=== PATIENT | female | born 1960 | race Caucasian/White ===

== ENCOUNTER 2017-06-21 20:55 | Inpatient (IN) | payer MEDICARE, MEDICAID ==
[~2017-06-21] VITALS: Ht 167.6 cm; Wt 154.6 kg
[2017-06-21 21:04] VITALS: BP 141/68; PULSE 92; RESP 20; TEMP 98.2; O2SAT 91
[2017-06-21] MEDS ORDERED: LEVO100T5 PO (21:08)
[2017-06-21] MEDS ORDERED: QUET1TAB11 PO (21:08)
[2017-06-21] MEDS ORDERED: BENZ0.5T PO (21:08)
[2017-06-21] MEDS ORDERED: SIMV20TA PO (21:08)
[2017-06-21] MEDS ORDERED: ALPR1TAB3 PO (21:08)
[2017-06-21] MEDS ORDERED: ROPI4TAB PO (21:08)
[2017-06-21] MEDS ORDERED: POTA-243 PO (21:08)
[2017-06-21] MEDS ORDERED: CITA20TA4 PO (21:08)
[2017-06-21] MEDS ORDERED: GLIM4TAB PO (21:08)
[2017-06-21] MEDS ORDERED: LITH450T PO (21:08)
[2017-06-21] MEDS ORDERED: OMEP20TA PO (21:08)
[2017-06-21] MEDS ORDERED: HYDR1CAP30 PO (21:08)
[2017-06-21] MEDS ORDERED: LISI-519 PO (21:08)
[2017-06-21] MEDS ORDERED: DOXE100C4 PO (21:08)
[2017-06-21] MEDS ORDERED: TRAZ1TAB45 PO (21:08)
[2017-06-21] MEDS ORDERED: SODIUM CHLORIDE 0.9% FLUSH 5 ML FLUSH IV FLUSH PRN (21:30)
--- NOTE | 2017-06-21 21:30 | PD ---
HPI Chief Complaint: GI Complaint Time Seen by Provider: 21:22 Travel History International Travel<30 days: No Contact w/Intl Traveler<30days: No Traveled to known affect area: No History of Present Illness HPI 56-year-old female presents to the emergency department by EMS transport from a local [facility] with complaint of vomiting 3 days generalized weakness and mild confusion. Patient was identified by EMS to have an Accu-Chek of 350. Patient has history of diabetes, hypertension, asthma/COPD , dyslipidemia, RBBB, morbid obesity, and anxiety depression and bipolar disorder. Patient here denies headache chest pain or abdominal pain. Patient denies diarrhea. Patient denies any injury or fall. Patient rates pain 0/10 in intensity. In route to the hospital patient had EKG which showed right bundle branch block pattern which patient has by history, was administered Zofran 4 mg IV for complaint of nausea and vomiting (no witnessed vomiting) , and given a 500 cc bolus of normal saline. Patient does not report any bilious emesis hematemesis coffee-ground emesis melena or hematochezia. Patient does not report complaint of shortness of breath. Patient denies any chest pain or pleuritic chest pain. No new lower extremity pain or swelling. PFSH Past Medical History Narrative Medical Asthma/status CT dyslipidemia diabetes hypertension hypothyroidism clinical obesity chronic pain syndrome no tobacco use occasional alcohol use; appendectomy cholecystectomy hysterectomy tonsillectomy; no tobacco use; nursing notes reviewed Asthma: Yes Anxiety: Yes Depression: Yes High Cholesterol: Yes COPD: Yes Diabetes: Yes Patient Takes Glucophage: No GERD: Yes Hypertension: Yes Respiratory: Yes Thyroid Disease: Yes Tetanus Vaccination: Unknown Influenza Vaccination: No ?: Unknown Past Surgical History Appendectomy: Yes Cholecystectomy: Yes Hysterectomy: Yes Tonsillectomy: Yes Social History Alcohol Use: Yes (Occasionally) Tobacco Use: No Substance Use: No Allergies-Medications (Allergen,Severity, Reaction): Coded Allergies: Penicillins (Verified Allergy, Unknown, Unknown , 06/21/17) Reported Meds & Prescriptions Reported Meds & Active Scripts Active Reported Alprazolam 1 Mg Tab 1 Mg PO Q8H PRN Omeprazole 20 Mg Tab 20 Mg PO DAILY Hydroxyzine Pamoate 25 Mg Cap 25 Mg PO BID Glimepiride 4 Mg Tab 4 Mg PO BIDAC [place] Carbonate ER ([place] Carbonate) 450 Mg Tab 450 Mg PO BID Benztropine (Benztropine Mesylate) 0.5 Mg Tab 1 Mg PO HS Klor-Con 10 (Potassium Chloride) 10 Meq Tab 10 Meq PO DAILY Levothyroxine (Levothyroxine Sodium) 100 Mcg Tab 100 Mcg PO DAILY Ropinirole 4 Mg Tab 4 Mg PO HS Quetiapine (Quetiapine Fumarate) 400 Mg Tab 800 Mg PO HS Trazodone (Trazodone HCl) 150 Mg Tablet 150 Mg PO HS Doxepin (Doxepin HCl) 100 Mg Cap 100 Mg PO HS Lisinopril 5 Mg Tab 5 Mg PO DAILY Simvastatin 20 Mg Tab 20 Mg PO DAILY Citalopram (Citalopram Hydrobromide) 20 Mg Tab 20 Mg PO DAILY Review of Systems Except as stated in HPI: all other systems reviewed are Neg General / Constitutional: No: Fever, Chills HENT: No: Headaches, Congestion Cardiovascular: No: Chest Pain or Discomfort Respiratory: No: Shortness of Breath Gastrointestinal: Positive: Nausea, Vomiting, No: Diarrhea, Abdominal Pain Genitourinary: No: Dysuria, Decreased Urinary Output Musculoskeletal: No: Myalgias, Arthralgias Skin: No Rash Neurologic: Positive: Weakness, Change in Mentation, No: Dizziness, Syncope, Headache Psychiatric: No: Anxiety Hematologic/Lymphatic: No: Easy Bruising Physical Exam Narrative GENERAL: Well developed well nourished obese female in no acute distress no respiratory distress SKIN: Warm and dry. HEAD: Atraumatic. Normocephalic. EYES: Pupils equal and round. No scleral icterus. No injection or drainage. ENT: No nasal bleeding or discharge. Mucous membranes pink and moist. NECK: Trachea midline. No JVD. CARDIOVASCULAR: Regular rate and rhythm. RESPIRATORY: No accessory muscle use. Clear to auscultation. Breath sounds equal bilaterally. GASTROINTESTINAL: Abdomen soft, non-tender, nondistended. Hepatic and splenic margins not palpable. MUSCULOSKELETAL: Extremities without clubbing, cyanosis, or edema. No obvious deformities. NEUROLOGICAL: Awake and mildly somnolent, mildly confused. No obvious cranial nerve deficits. Motor grossly within normal limits. Five out of 5 muscle strength in the arms and legs. Normal speech. Data Data Last Documented VS Vital Signs Date Time Temp Pulse Resp B/P (MAP) Pulse Ox O2 Delivery O2 Flow Rate FiO2 06/21/17 22:38 100 35 06/21/17 22:15 Nasal Cannula 2.00 06/21/17 22:07 20 06/21/17 22:05 06/21/17 22:02 98.3 97 Orders Orders Electrocardiogram (06/21/17 21:22) Ammonia (06/21/17 21:22) Complete Blood Count With Diff (06/21/17 21:22) Comprehensive Metabolic Panel (06/21/17 21:22) Creatine Kinase (Cpk) (06/21/17 21:22) Prothrombin Time / Inr (Pt) (06/21/17 21:22) Act Partial Throm Time (Ptt) (06/21/17 21:22) Troponin I (06/21/17 21:22) Thyroid Stimulating Hormone (06/21/17 21:22) Urinalysis - C+S If Indicated (06/21/17 21:22) Lactic Acid Sepsis Protocol (06/21/17 21:22) Blood Culture (06/21/17 21:22) Chest, Single Ap (06/21/17 21:22) Ct Brain W/O Iv Contrast(Rout) (06/21/17 21:22) Blood Glucose (06/21/17 21:22) Ecg Monitoring (06/21/17 21:22) Iv Access Insert/Monitor (06/21/17 21:22) Oximetry (06/21/17 21:22) Sodium Chloride 0.9% Flush (Ns Flush) (06/21/17 21:30) B-Type Natriuretic Peptide (06/21/17 21:22) Magnesium (Mg) (06/21/17 21:22) Albuterol-Ipratropium Neb (Duoneb Neb) (06/21/17 21:45) Arterial Blood Gas (Abg) (06/21/17 ) Metoclopramide Inj (Reglan Inj) (06/21/17 22:30) Resp Bipap / Cpap Non Invas Vt (06/21/17 ) Resp Bipap / Cpap Non Invas Vt (06/21/17 22:37) D-Dimer (06/21/17 22:37) Albuterol-Ipratropium Neb (Duoneb Neb) (06/21/17 22:45) Methylprednisolone So Succ Inj (Solumedr (06/21/17 22:45) Sodium Chlorid 0.9% 500 Ml Inj (Ns 500 M (06/21/17 22:45) Admit Order (Ed Use Only) (06/21/17 ) ^ Saline Lock (06/21/17 23:18) Resp Oxygen Ru C Titrat 1-4 L (06/21/17 ) Notify Dr: Other (06/21/17 23:18) Arterial Blood Gas (Abg) (06/21/17 11:15) Labs Laboratory Tests Test 06/21/17 11:15 06/21/17 21:25 06/21/17 21:35 06/21/17 22:15 Blood Gas Puncture Site RT RADIAL RT RADIAL Blood Gas Patient Temperature 98.6 98.6 Blood Gas HCO3 26 mmol/L 26 mmol/L Blood Gas Base Excess -1.2 mmol/L -1.5 mmol/L Blood Gas Oxygen Saturation 93 % 89 % Arterial Blood pH 7.19 7.20 Arterial Blood Partial Pressure CO2 72 mmHG 69 mmHG Arterial Blood Partial Pressure O2 108 mmHG 79 mmHG Arterial Blood Oxygen Content 17.1 Vol % 16.9 Vol % Arterial Blood Carboxyhemoglobin 1.7 % 1.8 % Arterial Blood Methemoglobin 1.6 % 1.4 % Blood Gas Hemoglobin 13.0 G/DL 13.4 G/DL Oxygen Delivery Device BIPAP NASAL CANNULA Blood Gas Ventilator Setting IPAP12/EPAP5 Blood Gas Inspired Oxygen 40 % White Blood Count 10.4 TH/MM3 Red Blood Count 4.30 MIL/MM3 Hemoglobin 13.0 GM/DL Hematocrit 40.4 % Mean Corpuscular Volume 93.9 FL Mean Corpuscular Hemoglobin 30.2 PG Mean Corpuscular Hemoglobin Concent 32.2 % Red Cell Distribution Width 13.5 % Platelet Count 219 TH/MM3 Mean Platelet Volume 9.2 FL Neutrophils (%) (Auto) 87.5 % Lymphocytes (%) (Auto) 7.5 % Monocytes (%) (Auto) 2.3 % Eosinophils (%) (Auto) 1.2 % Basophils (%) (Auto) 1.5 % Neutrophils # (Auto) 9.1 TH/MM3 Lymphocytes # (Auto) 0.8 TH/MM3 Monocytes # (Auto) 0.2 TH/MM3 Eosinophils # (Auto) 0.1 TH/MM3 Basophils # (Auto) 0.2 TH/MM3 CBC Comment DIFF FINAL Differential Comment Prothrombin Time 11.1 SEC Prothromb Time International Ratio 1.0 RATIO Activated Partial Thromboplast Time 30.1 SEC D-Dimer Quantitative (PE/DVT) 0.33 MG/L FEU Blood Urea Nitrogen 21 MG/DL Creatinine 1.40 MG/DL Random Glucose 317 MG/DL Total Protein 7.5 GM/DL Albumin 3.5 GM/DL Calcium Level 8.5 MG/DL Magnesium Level 1.9 MG/DL Alkaline Phosphatase 102 U/L Aspartate Amino Transf (AST/SGOT) 38 U/L Alanine Aminotransferase (ALT/SGPT) 40 U/L Total Bilirubin 0.5 MG/DL Sodium Level 131 MEQ/L Potassium Level 4.3 MEQ/L Chloride Level 98 MEQ/L Carbon Dioxide Level 27.9 MEQ/L Anion Gap 5 MEQ/L Estimat Glomerular Filtration Rate 39 ML/MIN Lactic Acid Level 0.9 mmol/L Total Creatine Kinase 151 U/L Troponin I LESS THAN 0.02 NG/ML B-Type Natriuretic Peptide 6 PG/ML Thyroid Stimulating Hormone 3rd Gen 5.460 uIU/ML Ammonia 19 MCMOL/L Blood Gas Liter Flow 2 L/M [facility] Medical Decision Making Medical Screen Exam Complete: Yes Emergency Medical Condition: Yes Medical Record Reviewed: Yes Interpretation(s) EKG normal sinus rhythm rate 95 right bundle branch block no acute ST elevation or injury pattern change identified Differential Diagnosis Altered mental status, uncontrolled diabetes, sepsis, dehydration, electrolyte disturbance, respiratory acidosis, exacerbation COPD, pneumonia, ICH, medication noncompliance, uremia, respiratory acidosis, narcolepsy, unlikely DKA Narrative Course Patient placed on cardiac exercise specialist IV access obtained specimens collected and several resulting Chest x-ray no lobar infiltrate CT brain noncontrast no acute abnormality CBC is automated differential values grossly ABG on 4 extremities cannula pH 7.197 with PCO2 60.5 PO2 of 79 with bicarbonate 25.6 basic excess of -1.5 O2 sat 89% with carboxyhemoglobin of 1.8% with respiratory acidosis Complete metabolic panel remarkable for mild renal insufficiency random glucose is 300 normal range potassium CK: 151 Troponin I less than 0.02 BMP: Lactic acid: 0.9, not elevated Patient started on BiPAP and additional DuoNeb updraft Patient appears to be tolerating BiPAP 12 over 5 40% FiO2 with ongoing updraft treatments; patient's case discussed with on-call information analyst for admission in view of somnolence mild hypercapnia, respiratory acidosis, hyperglycemia and multiple medications for anxiety and bipolar disorder. Suspect patient has sleep apnea. Critical Care Narrative Aggregate critical care time was 40 minutes. Time to perform other separately billable procedures was not included in the critical care time. My time did not include minutes spent treating any other patients simultaneously or on activities that did not directly contribute to the patient's treatment. The services I provided to this patient were to treat and/or prevent clinically significant deterioration that could result in: Respiratory failure, respiratory arrest, arrhythmia, I provided critical care services requiring my management, as noted below: Chart data review, documentation time, medication orders and management, vital sign assessments/reviewing monitor data, ordering and reviewing lab tests, ordering and interpreting/reviewing x-rays and diagnostic studies, care of the patient and discussion of the patient with the admitting physicians. Physician Communication Physician Communication discussed with Dr Gonzalez for admission to ICU Diagnosis Primary Impression: Respiratory acidosis Additional Impressions: COPD with hypoxia Altered mental state Qualified Codes: R41.82 - Altered mental status, unspecified At risk for polypharmacy Admitting Information Admitting Physician Requests: Admit Marti Serrano MD Jun 21, 2017 21:30
--- NOTE | 2017-06-21 21:44 | RADRPT ---
EXAM DATE/TIME: 06/21/2017 21:31 [facility] COMPARISON: No previous studies available for comparison. INDICATIONS : Syncopal episode, nausea, vomiting. MEDICAL HISTORY : Chronic obstructive pulmonary disease. Hypercholesterolemia. Hypertension. Asthma. Thyroid diseas e. Diabetes. SURGICAL HISTORY : Cholecystectomy. Appendectomy. Hysterectomy. ENCOUNTER: Initial ACUITY: 1 day PAIN SCORE: 0/10 LOCATION: chest FINDINGS: A single view of the chest demonstrates the lungs to be symmetrically aerated without evidence of mas s, infiltrate or effusion. The cardiomediastinal contours are unremarkable. Osseous structures are intact. CONCLUSION: No acute disease. Kang Coronado MD on June 21, 2017 at 21:42 Board Certified Radiologist. This report was verified electronically.
[2017-06-21] MEDS ORDERED: RESP: ALBUTEROL 2.5 MG/IPRATROPIUM 0.5 MG NEB (SCH) NEB ONE ×2 (21:45→22:45)
[2017-06-21 21:48] LABS: CHLORIDE 98 MEQ/L (98-107); POTASSIUM 4.3 MEQ/L (3.5-5.1); SODIUM (NA) 131 MEQ/L (136-145)
[2017-06-21 21:49] LABS: AUTOMATED NEUTROPHIL # 9.1 TH/MM3 (1.8-7.7); BASOPHIL # 0.2 TH/MM3 (0-0.2); BASOPHIL % 1.5 % (0.0-2.0); EOSINOPHIL # 0.1 TH/MM3 (0-0.4); EOSINOPHIL % 1.2 % (0.0-4.0); HEMATOCRIT 40.4 % (35.0-46.0); LYMPH % 7.5 % (9.0-44.0); LYMPHOCYTE # 0.8 TH/MM3 (1.0-4.8); MEAN CELL VOLUME 93.9 FL (80.0-100.0); MEAN CORPUSCULAR HEMOGLOBIN 30.2 PG (27.0-34.0); MEAN CORPUSCULAR HGB CONC 32.2 % (32.0-36.0); MONO % 2.3 % (0.0-8.0); NEUT % 87.5 % (16.0-70.0); PLATELET COUNT 219 TH/MM3 (150-450); RED CELL DISTRIBUTION WIDTH 13.5 % (11.6-17.2); WHITE BLOOD COUNT 10.4 TH/MM3 (4.0-11.0)
[2017-06-21 21:51] LABS: ANION GAP 5 MEQ/L (5-15); BICARBONATE 27.9 MEQ/L (21.0-32.0); MAGNESIUM 1.9 MG/DL (1.5-2.5)
[2017-06-21 21:52] LABS: APTT (PATIENT) 30.1 SEC (24.3-30.1); BLOOD UREA NITROGEN 21 MG/DL (7-18); PROTHROMBIN TIME - PATIENT 11.1 SEC (9.8-11.6)
[2017-06-21 21:54] LABS: ALT (GPT) 40 U/L (10-53); AST (GOT) 38 U/L (15-37)
[2017-06-21 21:55] LABS: GLOMERULAR FILTRATION RATE 39 ML/MIN (>89)
[2017-06-21 21:56] LABS: TOTAL BILIRUBIN ADULT 0.5 MG/DL (0.2-1.0)
[2017-06-21 21:57] LABS: ALKALINE PHOSPHATASE 102 U/L (45-117); CREATINE KINASE 151 U/L (26-192)
--- NOTE | 2017-06-21 21:59 | RADRPT ---
EXAM DATE/TIME: 06/21/2017 21:43 [facility] COMPARISON: No previous studies available for comparison. INDICATIONS : Altered mental status RADIATION DOSE: 59.46 CTDIvol (mGy) ; Patient motion MEDICAL HISTORY : Hypertension. Chronic obstructive pulmonary disease. Diabetes mellitus type 2.Asthma SURGICAL HISTORY : Appendectomy. Cholecystectomy. ENCOUNTER: Initial ACUITY: 1 day PAIN SCALE: 0/10 LOCATION: cranial TECHNIQUE: Multiple contiguous axial images were obtained of the head. Using automated exposure control and adj ustment of the mA and/or kV according to patient size, radiation dose was kept as low as reasonably a chievable to obtain optimal diagnostic quality images. DICOM format image data is available electro nically for review and comparison. FINDINGS: CEREBRUM: The ventricles are normal for age. No evidence of midline shift, mass lesion, hemorrhage or acute in farction. No extra-axial fluid collections are seen. POSTERIOR FOSSA: The cerebellum and brainstem are intact. The 4th ventricle is midline. The cerebellopontine angle i s unremarkable. EXTRACRANIAL: The visualized portion of the orbits is intact. SKULL: The calvaria is intact. No evidence of skull fracture. CONCLUSION: No acute disease. Kang Coronado MD on June 21, 2017 at 21:57 Board Certified Radiologist. This report was verified electronically.
[2017-06-21 22:02] VITALS: BP 133/76; PULSE 97; RESP 20; TEMP 98.3; O2SAT 93
[2017-06-21 22:03] LABS: HEMO FLAGS DIFF FINAL
[2017-06-21 22:05] VITALS: RESP 20; O2SAT 93
[2017-06-21 22:15] VITALS: O2SAT 95
[2017-06-21] MEDS ORDERED: METOCLOPRAMIDE HCL 10 MG/2 ML VIAL IV PUSH ONE (22:30)
[2017-06-21 22:36] LABS: BLOOD GAS BASE EXCESS -1.5 mmol/L (-2-2); BLOOD GAS CARBOXYHEMOGLOBIN 1.8 % (0-4); BLOOD GAS HCO3 26 mmol/L (22-26); BLOOD GAS METHEMOGLOBIN 1.4 % (0-2); BLOOD GAS O2 HGB SATURATION 89 % (90-100); BLOOD GAS OXYGEN CONTENT 16.9 Vol % (12.0-20.0); BLOOD GAS PCO2 69 mmHG (38-42); BLOOD GAS PO2 79 mmHG (61-120); BLOOD GAS TOTAL HGB 13.4 G/DL (12.0-16.0); CRITICAL VALUE YES; LITER FLOW 2 L/M; OXYGEN DEVICE NASAL CANNULA; TEMP CORR TO 98.6
[2017-06-21 22:37] LABS: DRAW SITE RT RADIAL; NUMBER OF ARTERIAL PUNCTURES 1; STAT YES; ULNAR PULSE PRESENT
[2017-06-21 22:38] VITALS: O2SAT 100
[2017-06-21] MEDS ORDERED: SODIUM CHLORID 0.9% 500 ML INJ 500 ML IV ONE (22:45)
[2017-06-21] MEDS ORDERED: methylPREDNISolone SOD SUCC 125 MG/2 ML VIAL IV PUSH ONE (22:45)
[2017-06-21 23:20] LABS: BLOOD GAS BASE EXCESS -1.2 mmol/L (-2-2); BLOOD GAS CARBOXYHEMOGLOBIN 1.7 % (0-4); BLOOD GAS HCO3 26 mmol/L (22-26); BLOOD GAS METHEMOGLOBIN 1.6 % (0-2); BLOOD GAS O2 HGB SATURATION 93 % (90-100); BLOOD GAS OXYGEN CONTENT 17.1 Vol % (12.0-20.0); BLOOD GAS PCO2 72 mmHG (38-42); BLOOD GAS PO2 108 mmHG (61-120); TEMP CORR TO 98.6
[2017-06-21 23:21] LABS: CRITICAL VALUE YES; DRAW SITE RT RADIAL; FIO2 40 %; NUMBER OF ARTERIAL PUNCTURES 1; OXYGEN DEVICE BIPAP; STAT YES; ULNAR PULSE PRESENT; VENT SETTINGS IPAP12/EPAP5
[2017-06-21 23:26] VITALS: O2SAT 97
[2017-06-21] MEDS ORDERED: SODIUM CHLORIDE 0.9% FLUSH 10 ML FLUSH IVF PRN (23:30)
[2017-06-21] MEDS ORDERED: diphenhydrAMINE HCL 50 MG/ML VIAL IV PUSH ONE (23:30)
[2017-06-21] MEDS ORDERED: SODIUM CHLOR 0.9% 1000 ML INJ 1,000 ML IV SCH (23:37)
--- NOTE | 2017-06-21 23:37 | HHI.HP ---
[facility] Service Critical Care Medicine Primary Care Physician Haja Dent, DO Admission Diagnosis resp acidosis/CO2 narcosis; polypharmacy; DM/hyperglycemia Diagnosis: Travel History International Travel<30 Days: No Contact w/Intl Traveler <30 Da: No Traveled to Known Affected Are: No History of Present Illness This is a 56-year-old female that presented to the ED by EMS transport from a local [facility] with complaint of vomiting 3 days generalized weakness and mild confusion. Patient was identified by EMS to have an Accu-Chek of 350. Patient has history of diabetes, hypertension, asthma/COPD , dyslipidemia, RBBB, morbid obesity, and anxiety depression and bipolar disorder. Patient here denies headache chest pain or abdominal pain. Patient denies diarrhea. Patient denies any injury or fall. Patient rates pain 0/10 in intensity. In route to the hospital patient had EKG which showed right bundle branch block pattern which patient has by history, was administered Zofran 4 mg IV for complaint of nausea and vomiting (no witnessed vomiting) , and given a 500 cc bolus of normal saline, the patient then received metoclopramide. Patient does not report any bilious emesis hematemesis coffee- ground emesis melena or hematochezia. The patient was placed on by BIPAP, with slight improvement of ABG. Upon evaluation to the ED, the patient was noted to be having dystonia movement, confusion with bouts of somnolence, possibly due to noted hyponatremia, or and/or metoclopramide, the patient's O2 saturation was noted to be 96% on 12/8 FIO2.40% BiPAP. The patient was given IV Benadryl. Critical care medicine is consulted for management. [facility] Past Medical History Narrative Medical Asthma/status CT dyslipidemia diabetes hypertension hypothyroidism clinical obesity chronic pain syndrome no tobacco use occasional alcohol use; appendectomy cholecystectomy hysterectomy tonsillectomy; no tobacco use; nursing notes reviewed Asthma: Yes Anxiety: Yes Depression: Yes High Cholesterol: Yes COPD: Yes Diabetes: Yes Patient Takes Glucophage: No GERD: Yes Hypertension: Yes Respiratory: Yes Thyroid Disease: Yes Tetanus Vaccination: Unknown Influenza Vaccination: No ?: Unknown Past Surgical History Appendectomy: Yes Cholecystectomy: Yes Hysterectomy: Yes Tonsillectomy: Yes Social History Alcohol Use: Yes (Occasionally) Tobacco Use: No Substance Use: No Allergies-Medications (Allergen,Severity, Reaction): Coded Allergies: Penicillins (Verified Allergy, Unknown, Unknown , 06/21/17) Reported Meds & Prescriptions Reported Meds & Active Scripts Active Reported Alprazolam 1 Mg Tab 1 Mg PO Q8H PRN Omeprazole 20 Mg Tab 20 Mg PO DAILY Hydroxyzine Pamoate 25 Mg Cap 25 Mg PO BID Glimepiride 4 Mg Tab 4 Mg PO BIDAC Etta Carbonate ER (Etta Carbonate) 450 Mg Tab 450 Mg PO BID Benztropine (Benztropine Mesylate) 0.5 Mg Tab 1 Mg PO HS Klor-Con 10 (Potassium Chloride) 10 Meq Tab 10 Meq PO DAILY Levothyroxine (Levothyroxine Sodium) 100 Mcg Tab 100 Mcg PO DAILY Ropinirole 4 Mg Tab 4 Mg PO HS Quetiapine (Quetiapine Fumarate) 400 Mg Tab 800 Mg PO HS Trazodone (Trazodone HCl) 150 Mg Tablet 150 Mg PO HS Doxepin (Doxepin HCl) 100 Mg Cap 100 Mg PO HS Lisinopril 5 Mg Tab 5 Mg PO DAILY Simvastatin 20 Mg Tab 20 Mg PO DAILY Citalopram (Citalopram Hydrobromide) 20 Mg Tab 20 Mg PO DAILY Review of Systems Except as stated in HPI: all other systems reviewed are Neg General / Constitutional: No: Fever, Chills HENT: No: Headaches, Congestion Cardiovascular: No: Chest Pain or Discomfort Respiratory: No: Shortness of Breath Gastrointestinal: Positive: Nausea, Vomiting, No: Diarrhea, Abdominal Pain Genitourinary: No: Dysuria, Decreased Urinary Output Musculoskeletal: No: Myalgias, Arthralgias Skin: No Rash Neurologic: Positive: Weakness, Change in Mentation, No: Dizziness, Syncope, Headache Psychiatric: No: Anxiety Hematologic/Lymphatic: No: Easy Bruising Past Family Social History Allergies: Coded Allergies: Penicillins (Verified Allergy, Unknown, Unknown , 06/21/17) Physical Exam Vital Signs Vital Signs Date Time Temp Pulse Resp B/P (MAP) Pulse Ox O2 Delivery O2 Flow Rate FiO2 06/21/17 23:26 97 30 06/21/17 22:38 100 35 06/21/17 22:15 95 Nasal Cannula 2.00 06/21/17 22:07 20 06/21/17 22:05 20 93 Nasal Cannula 2.00 06/21/17 22:02 98.3 97 20 133/76 (95) 93 Room Air 06/21/17 21:04 98.2 92 20 141/68 (92) 91 Physical Exam GENERAL: Super morbidly obese female patient somnolent with intermittent mitten bouts of confusion/agitation SKIN: Warm and dry. Large pannus with noted malodorous, reddened, excoriated area HEAD: Atraumatic. Normocephalic. EYES: Pupils equal and round. No scleral icterus. No injection or drainage. ENT: No nasal bleeding or discharge. Mucous membranes pink and moist. Mallampati classification IV, small oral aperture noted difficult airway NECK: Trachea midline. Unable to assess JVD secondary to body habitus. CARDIOVASCULAR: Normal rate, regular rhythm. RESPIRATORY: No accessory muscle use. Clear to auscultation, diminished throughout. Breath sounds equal bilaterally. GASTROINTESTINAL: Abdomen soft, non-tender, nondistended. No guarding. MUSCULOSKELETAL: Extremities without clubbing, cyanosis, or edema. No obvious deformities. NEUROLOGICAL: Awake and alert. RASS 0. No gross focal/sensory deficits. Follows commands in all 4 extremities. Laboratory Laboratory Tests Test 06/21/17 11:15 06/21/17 21:25 06/21/17 21:35 06/21/17 22:15 Blood Gas Puncture Site RT RADIAL RT RADIAL Blood Gas Patient Temperature 98.6 98.6 Blood Gas HCO3 26 26 Blood Gas Base Excess -1.2 -1.5 Blood Gas Oxygen Saturation 93 89 Arterial Blood pH 7.19 7.20 Arterial Blood Partial Pressure CO2 72 69 Arterial Blood Partial Pressure O2 108 79 Arterial Blood Oxygen Content 17.1 16.9 Arterial Blood Carboxyhemoglobin 1.7 1.8 Arterial Blood Methemoglobin 1.6 1.4 Blood Gas Hemoglobin 13.0 13.4 Oxygen Delivery Device BIPAP NASAL CANNULA Blood Gas Ventilator Setting IPAP12/EPAP5 Blood Gas Inspired Oxygen 40 White Blood Count 10.4 Red Blood Count 4.30 Hemoglobin 13.0 Hematocrit 40.4 Mean Corpuscular Volume 93.9 Mean Corpuscular Hemoglobin 30.2 Mean Corpuscular Hemoglobin Concent 32.2 Red Cell Distribution Width 13.5 Platelet Count 219 Mean Platelet Volume 9.2 Neutrophils (%) (Auto) 87.5 Lymphocytes (%) (Auto) 7.5 Monocytes (%) (Auto) 2.3 Eosinophils (%) (Auto) 1.2 Basophils (%) (Auto) 1.5 Neutrophils # (Auto) 9.1 Lymphocytes # (Auto) 0.8 Monocytes # (Auto) 0.2 Eosinophils # (Auto) 0.1 Basophils # (Auto) 0.2 CBC Comment DIFF FINAL Differential Comment Prothrombin Time 11.1 Prothromb Time International Ratio 1.0 Activated Partial Thromboplast Time 30.1 Blood Urea Nitrogen 21 Creatinine 1.40 Random Glucose 317 Total Protein 7.5 Albumin 3.5 Calcium Level 8.5 Magnesium Level 1.9 Alkaline Phosphatase 102 Aspartate Amino Transf (AST/SGOT) 38 Alanine Aminotransferase (ALT/SGPT) 40 Total Bilirubin 0.5 Sodium Level 131 Potassium Level 4.3 Chloride Level 98 Carbon Dioxide Level 27.9 Anion Gap 5 Estimat Glomerular Filtration Rate 39 Lactic Acid Level 0.9 Total Creatine Kinase 151 Troponin I LESS THAN 0.02 B-Type Natriuretic Peptide 6 Thyroid Stimulating Hormone 3rd Gen 5.460 Ammonia 19 Blood Gas Liter Flow 2 Date/Time Source Procedure Growth Status 06/21/17 21:36 Blood Peripheral Aerobic Blood Culture Pending Received 06/21/17 21:36 Blood Peripheral Anaerobic Blood Culture Pending Received Result Diagram: 06/21/17212406/21/172124 Imaging Last Impressions Head CT 06/21/172121 Signed Impressions: Service Date/Time: Wednesday, June 21, 2017 21:43 - CONCLUSION: No acute disease. Kang Coronado MD Chest X-Ray 06/21/172121 Signed Impressions: Service Date/Time: Wednesday, June 21, 2017 21:31 - CONCLUSION: No acute disease. Kang Coronado MD Septic Shock Reassessment Heart: Regular rate and rhythm Skin: Warm Peripheral Pulses: Bounding Right Radial Bounding Left Radial Bounding Left Popliteal Bounding Right Dorsalis Pedis Capillary Refill: Brisk Caprini VTE Risk Assessment Caprini VTE Risk Assessment: Mod/High Risk (score >= 2) Caprini Risk Assessment Model Point Value = 1 Point Value = 2 Point Value = 3 Point Value = 5 Age 41-60 Minor surgery BMI > 25 kg/m2 Swollen legs Varicose veins or History of unexplained or recurrent spontaneous Oral contraceptives or hormone replacement Sepsis (< 1 month) Serious lung disease, including pneumonia (< 1 month) Abnormal pulmonary function Acute myocardial infarction Congestive heart failure (< 1 month) History of inflammatory bowel disease Medical patient at bed rest Age 61-74 Arthroscopic surgery Major open surgery (> 45 min) Laparoscopic surgery (> 45 min) Malignancy Confined to bed (> 72 hours) Immobilizing plaster cast Central venous access Age >= 75 History of VTE Family history of VTE Factor V Leiden Prothrombin [id number] Lupus anticoagulant Anticardiolipin antibodies Elevated serum homocysteine Heparin-induced thrombocytopenia Other congenital or acquired thrombophilia Stroke (< 1 month) Elective arthroplasty Hip, pelvis, or leg fracture Acute spinal cord injury (< 1 month) Prophylaxis Regimen Total Risk Factor Score Risk Level Prophylaxis Regimen 0-1 Low Early ambulation 2 Moderate Order ONE of the following: *Sequential Compression Device (SCD) *Heparin 5000 units SQ BID 3-4 Higher Order ONE of the following medications: *Heparin 5000 units SQ TID *Enoxaparin/Lovenox 40 mg SQ daily (WT < 150 kg, CrCl > 30 mL/min) *Enoxaparin/Lovenox 30 mg SQ daily (WT < 150 kg, CrCl > 10-29 mL/min) *Enoxaparin/Lovenox 30 mg SQ BID (WT < 150 kg, CrCl > 30 mL/min) AND/OR *Sequential Compression Device (SCD) 5 or more Highest Order ONE of the following medications: *Heparin 5000 units SQ TID (Preferred with Epidurals) *Enoxaparin/Lovenox 40 mg SQ daily (WT < 150 kg, CrCl > 30 mL/min) *Enoxaparin/Lovenox 30 mg SQ daily (WT < 150 kg, CrCl > 10-29 mL/min) *Enoxaparin/Lovenox 30 mg SQ BID (WT < 150 kg, CrCl > 30 mL/min) AND *Sequential Compression Device (SCD) Assessment and Plan Assessment and Plan This is a super morbidly obese female patient somnolent episodes, with hyponatremia,bipolar disorder, with possible polypharmacy at extremely high risk for intubation. Due to her physical exam Mallampati class IV patient is at high risk for a surgical airway. Neurologic: Bipolar disorder Depression Restless leg syndrome Possible lithium toxicity Polypharmacy Anxiety disorder Extreme lethargy/somnolence Neuro checks every hour per ICU protocol Benadryl 12.5 mg IV push 1 dose for dystonia secondary to metoclopramide continue to monitor Avoid all sedative type medications Patient home medications include Roperinole, Trazodone, Citalopram, Benztropine, Hydroxyzine and Alprazolam will hold for now Obtain UDS Obtain lithium level Respiratory: COPD Asthma Obesity hypoventilation syndrome Obstructive sleep apnea Maintain O2 sat greater than 92% Continue BiPAP 15/8/FiO2 0.35% ABG 7.20/69/79/26/1.5-slowly improving-patient at high risk for intubation Duo nebs every 6 hours scheduled every 2 hours when necessary Maintain head of bed at least 30 Methylprednisolone 40 mg every 12hr F/U D Dimer- Patient unable to undergo CTA at this time due to dystonic reaction unable to lie still intermittent somnolence, obtain echo Cardiovascular: Hypertension Continue patient's home medication lisinopril 06/21 EKG-right bundle branch block left posterior fascicular block (patient has history of right bundle branch block Renal: -- Strict I/Os FEN/GI: Hyponatremia Super morbid obesity Renal insufficiency Nausea and vomiting Hypercholesterolemia Maintain NPO status except ice chips and meds Obtain sodium levels every 6 hours- Initial Na level 131 Begin normal saline infusion 84cc/hour Insert puente Creatinine 1.4 continue to monitor BMP Continue simvastatin Obtain lipid panel Heme/ID: Skin wound infection Monitor CBC, WBC count within normal limits Lactate 0.9 Empiric dosing Azactam, metronidazole, and vancomycin-white excoriated creamy malodorous large area involving skinfolds of pannus Endocrine: Hypothyroidism Diabetes mellitus TSH significantly elevated 5.4, obtain free T4 Continue Synthroid 100 mcgs daily Obtain hemoglobin A1c Glucose monitoring per ICU protocol-medium dose regimen -- SSI Prophylaxis: GI Prophylaxis Protonix 40 mg IV DVT Prophylaxis -- SCDs Heparin 5000 every 8 hours Lines: Peripheral IVs 2 at providing adequate access at this time Dispo: This patient remains critically ill with one or more organ systems which are or may become a threat to life. I have spent in excess of 60 minutes discontinuously in the care and management of this patient. This time is exclusive of procedures, and includes, but is not limited to, evaluation of the patient, review of the medical record, discussions with family, consultants, nursing staff, or respiratory therapy, and documentation in the medical record. Code Status Full Discussed Condition With Dr Serrano and ED RN at bedside Katie Gonzalez MD Jun 21, 2017 23:37
[2017-06-21] MEDS ORDERED: POTASSIUM CHLOR 40 MEQ PREMIX 100 ML IV PRN ×2 (23:45)
[2017-06-21] MEDS ORDERED: MAGNESIUM SULFATE INJ 2 GM in SODIUM CHLORIDE 0.9% INJ 96 ML IV PRN (23:45)
[2017-06-21] MEDS ORDERED: POTASSIUM PHOSPHATE MONOBASIC 500 MG TAB PO PRN (23:45)
[2017-06-21] MEDS ORDERED: POTASSIUM CHLORIDE 25 MEQ EFFERVESCENT TAB PO PRN (23:45)
[2017-06-21] MEDS ORDERED: POTASSIUM PHOSPHATE MONOBASIC 500 MG TAB PO/TUBE PRN (23:45)
[2017-06-21] MEDS ORDERED: MISCELLANEOUS NURSING INFORMATION XX SCH (23:45)
[2017-06-21] MEDS ORDERED: POTASSIUM CHLOR 20 MEQ PREMIX 100 ML IV PRN ×2 (23:45)
[2017-06-21] MEDS ORDERED: LACTULOSE SYRUP 20 GM/30 ML CUP PO PRN (23:45)
[2017-06-21] MEDS ORDERED: GLUCAGON 1 MG/ML VIAL OTHER PRN (23:45)
[2017-06-21] MEDS ORDERED: MAGNESIUM HYDROXIDE SUSP 30 ML CUP PO PRN (23:45)
[2017-06-21] MEDS ORDERED: DEXTROSE 50% IN WATER 50 ML VIAL(D50) IV PRN (23:45)
[2017-06-21] MEDS ORDERED: ONDANSETRON HCL 4 MG/2 ML VIAL IV PUSH PRN (23:45)
[2017-06-21] MEDS ORDERED: RESP: ALBUTEROL 2.5 MG/IPRATROPIUM 0.5 MG NEB (PRN) INH (23:45)
[2017-06-21] MEDS ORDERED: SODIUM PHOSPHATE INJ 30 MMOL in SODIUM CHLOR 0.9% 250 ML INJ 240 ML IV PRN (23:45)
[2017-06-21] MEDS ORDERED: MAGNESIUM OXIDE 400 MG TAB PO PRN (23:45)
[2017-06-21] MEDS ORDERED: POTASSIUM PHOSPHATE INJ 30 MMOL in SODIUM CHLOR 0.9% 250 ML INJ 250 ML IV PRN (23:45)
[2017-06-21] MEDS ORDERED: CHLORHEXIDINE GLUCONATE 2 % 1 PACK (2 CLOTHS) TOP PRN (23:45)
[2017-06-21] MEDS ORDERED: MAGNESIUM SULFATE INJ 4 GM in SODIUM CHLORIDE 0.9% INJ 92 ML IV PRN (23:45)
[2017-06-21] MEDS ORDERED: SENNOSIDES 8.6 MG TAB PO PRN (23:45)
[2017-06-21] MEDS ORDERED: BISACODYL 10 MG SUPP RECTAL PRN (23:45)
[2017-06-22] VITALS (45 sets, daily range): BP systolic 97–219; BP diastolic 53–97; PULSE 58–118; RESP 18–20; TEMP 98.5–98.9; O2SAT 93–100
[2017-06-22 00:55] LABS: BLOOD, URINE SMALL (NEG); GLUCOSE,URINE 250 mg/dL (NEG); KETONE, URINE TRACE mg/dL (NEG); NITRITE,URINE NEG (NEG)
[2017-06-22] MEDS ORDERED: MISCELLANEOUS NURSING INFORMATION XX SCH (01:00)
[2017-06-22] MEDS ORDERED: Vancomycin Consult Pharmacy 1 EA OTHER SCH (01:00)
[2017-06-22] MEDS ORDERED: CHLORHEXIDINE GLUCONATE 2 % 1 PACK (2 CLOTHS) TOP PRN (01:00)
[2017-06-22 01:21] LABS: URINE COLOR YELLOW (YELLW/STRAW)
[2017-06-22 01:22] LABS: MUCUS URINE OCC /lpf (OCC)
[2017-06-22 01:23] LABS: RBC, URINE 0-3 /hpf (0-3); SQUAMOUS EPITHELIAL CELL URINE 0-5 /hpf (0-5)
[2017-06-22 01:29] LABS: COMMENT (UR) CATH-CULT NOT IND; CULTURE IF INDICATED CATH CULTURE NOT IND; METHOD OF COLLECTION CATH
[2017-06-22] MEDS ORDERED: VANCOMYCIN INJ 2,500 MG in SODIUM CHLORID 0.9% 500 ML INJ 500 ML IV ONE (01:30)
[2017-06-22] MEDS: AZTREONAM INJ 2,000 MG in SODIUM CHLORIDE 0.9% INJ 100 ML IV SCH ×3 (01:50→17:05)
[2017-06-22 01:52] LABS: SODIUM (NA) 132 MEQ/L (136-145)
[2017-06-22] MEDS ORDERED: LORazepam 2 MG/ML VIAL IV ONE (02:30)
[2017-06-22] MEDS ORDERED: LORazepam 2 MG/ML VIAL IV PRN (02:30)
[2017-06-22] MEDS ORDERED: diphenhydrAMINE HCL 50 MG/ML VIAL IV ONE (02:30)
[2017-06-22] MEDS: CHLORHEXIDINE GLUCONATE 2 % 1 PACK (2 CLOTHS) TOP SCH ×2 (04:00→23:46)
[2017-06-22] MEDS ORDERED: CHLORHEXIDINE GLUCONATE 2 % 1 PACK (2 CLOTHS) TOP SCH (04:00)
[2017-06-22] MEDS ORDERED: RESP: ALBUTEROL 2.5 MG/IPRATROPIUM 0.5 MG NEB (SCH) INH (04:00)
[2017-06-22] MEDS: metroNIDAZOLE 500 MG INJ 100 ML IV SCH ×3 (05:17→18:00)
[2017-06-22] MEDS: HEPARIN SODIUM - SQ 10,000 UNITS/ML VIAL SQ SCH ×3 (06:21→21:01)
[2017-06-22 06:52] LABS: BLOOD GAS BASE EXCESS -0.7 mmol/L (-2-2); BLOOD GAS CARBOXYHEMOGLOBIN 1.7 % (0-4); BLOOD GAS HCO3 25 mmol/L (22-26); BLOOD GAS METHEMOGLOBIN 1.5 % (0-2); BLOOD GAS O2 HGB SATURATION 87 % (90-100); BLOOD GAS OXYGEN CONTENT 15.4 Vol % (12.0-20.0); BLOOD GAS PCO2 55 mmHG (38-42); BLOOD GAS PO2 63 mmHG (61-120); BLOOD GAS TOTAL HGB 12.5 G/DL (12.0-16.0); TEMP CORR TO 98.6
[2017-06-22 06:53] LABS: CRITICAL VALUE YES; DRAW SITE RT RADIAL; LITER FLOW 30 L/M; NUMBER OF ARTERIAL PUNCTURES 1; OXYGEN DEVICE BIPAP; STAT NO; ULNAR PULSE PRESENT; VENT SETTINGS IPAP15/EPAP5
[2017-06-22] MEDS: LEVOTHYROXINE SODIUM 100 MCG TAB PO SCH (07:13)
[2017-06-22] MEDS ORDERED: ETOMIDATE 20 MG/10 ML VIAL ONE (07:15)
[2017-06-22] MEDS ORDERED: ETOMIDATE 40 MG/20 ML VIAL IV PUSH ONE (07:15)
[2017-06-22] MEDS ORDERED: SUCCINYLCHOLINE CHLORIDE 200 MG/10 ML VIAL IV PUSH ONE (07:15)
[2017-06-22] MEDS ORDERED: fentaNYL CITRATE 250 MCG/5 ML AMP IV PUSH ONE (07:15)
[2017-06-22] MEDS ORDERED: ROCURONIUM INJ 50 MG/5 ML VIAL ONE (07:23)
[2017-06-22] MEDS ORDERED: PROPOFOL 1000 MG/100 ML INJ 100 ML ONE (07:28)
[2017-06-22] MEDS: RESP: ALBUTEROL 2.5 MG/IPRATROPIUM 0.5 MG NEB (SCH) NEB ×3 (07:55→15:11)
[2017-06-22] MEDS ORDERED: RESP: ALBUTEROL 2.5 MG/IPRATROPIUM 0.5 MG NEB (PRN) NEB (08:00)
[2017-06-22] MEDS: CHLORHEXIDINE 0.12% (ORAL KIT) 15 ML CUP MT SCH ×2 (08:00→20:00)
--- NOTE | 2017-06-22 08:26 | HHI.CCPN ---
Subjective Remarks/Hospital Course This is a 56-year-old female that presented to the ED by EMS transport from a local [facility] with complaint of vomiting 3 days generalized weakness and mild confusion. Patient was identified by EMS to have an Accu-Chek of 350. Patient has history of diabetes, hypertension, asthma/COPD , dyslipidemia, RBBB, morbid obesity, and anxiety depression and bipolar disorder. Patient here denies headache chest pain or abdominal pain. Patient denies diarrhea. Patient denies any injury or fall. Patient rates pain 0/10 in intensity. In route to the hospital patient had EKG which showed right bundle branch block pattern which patient has by history, was administered Zofran 4 mg IV for complaint of nausea and vomiting (no witnessed vomiting) , and given a 500 cc bolus of normal saline, the patient then received metoclopramide. Patient does not report any bilious emesis hematemesis coffee- ground emesis melena or hematochezia. The patient was placed on by BIPAP, with slight improvement of ABG. Upon evaluation to the ED, the patient was noted to be having dystonia movement, confusion with bouts of somnolence, possibly due to noted hyponatremia, or and/or metoclopramide, the patient's O2 saturation was noted to be 96% on 12/8 FIO2.40% BiPAP. The patient was given IV Benadryl. Critical care medicine is consulted for management. Subjective: 06/22: At approximately 0100am, the patient became confused, combative, more agitated. Urine drug screen revealed positive for cannabinoids. The patient received Benadryl 25 mg IV and 1 mg of Ativan in divided doses over 2 hours, with resolution. At 0600 a.m., the patient again became agitated's decreasing mentation and confusion ,ABG was drawn showing decreasing oxygen saturation/ PAO2 levels. The patient was emergently intubated 1 attempt uneventfully. Objective Vital Signs Date Time Temp Pulse Resp B/P (MAP) Pulse Ox O2 Delivery O2 Flow Rate FiO2 06/22/17 07:30 96 50 06/22/17 06:44 93 18 127/85 (99) BiPAP 06/22/17 04:24 2.00 06/21/17 22:02 98.3 Intake and Output 06/22/17 06/22/17 06/23/17 08:00 16:00 00:00 Intake Total 1225 ml Output Total 3175 ml Balance -1950 ml Result Diagram: 06/21/17212406/22/17 0750 Other Results Laboratory Tests Test 06/21/17 11:15 06/21/17 22:15 06/22/17 06:48 Blood Gas Puncture Site RT RADIAL RT RADIAL RT RADIAL Blood Gas Patient Temperature 98.6 98.6 98.6 Blood Gas HCO3 26 mmol/L (22-26) 26 mmol/L (22-26) 25 mmol/L (22-26) Blood Gas Base Excess -1.2 mmol/L (-2-2) -1.5 mmol/L (-2-2) -0.7 mmol/L (-2-2) Blood Gas Oxygen Saturation 93 % (90-100) 89 % (90-100) 87 % (90-100) Arterial Blood pH 7.19 (7.380-7.420) 7.20 (7.380-7.420) 7.29 (7.380-7.420) Arterial Blood Partial Pressure CO2 72 mmHG (38-42) 69 mmHG (38-42) 55 mmHG (38-42) Arterial Blood Partial Pressure O2 108 mmHG (61-120) 79 mmHG (61-120) 63 mmHG (61-120) Arterial Blood Oxygen Content 17.1 Vol % (12.0-20.0) 16.9 Vol % (12.0-20.0) 15.4 Vol % (12.0-20.0) Arterial Blood Carboxyhemoglobin 1.7 % (0-4) 1.8 % (0-4) 1.7 % (0-4) Arterial Blood Methemoglobin 1.6 % (0-2) 1.4 % (0-2) 1.5 % (0-2) Blood Gas Hemoglobin 13.0 G/DL (12.0-16.0) 13.4 G/DL (12.0-16.0) 12.5 G/DL (12.0-16.0) Oxygen Delivery Device BIPAP NASAL CANNULA BIPAP Blood Gas Ventilator Setting IPAP12/EPAP5 IPAP15/EPAP5 Blood Gas Inspired Oxygen 40 % Blood Gas Liter Flow 2 L/M 30 L/M Imaging Last Impressions Head CT 06/21/172121 Signed Impressions: Service Date/Time: Wednesday, June 21, 2017 21:43 - CONCLUSION: No acute disease. Kang Coronado MD Chest X-Ray 06/21/172121 Signed Impressions: Service Date/Time: Wednesday, June 21, 2017 21:31 - CONCLUSION: No acute disease. Kang Coronado MD Objective Remarks GENERAL: Super morbidly obese female patient somnolent with intermittent bouts of confusion/agitation SKIN: Warm and dry. Large pannus with noted malodorous, reddened, excoriated area, with white exudative area noted HEAD: Atraumatic. Normocephalic. EYES: Pupils equal and round. No scleral icterus. No injection or drainage. ENT: No nasal bleeding or discharge. Mucous membranes pink and moist. Mallampati classification IV, small oral aperture noted difficult airway NECK: Trachea midline. Unable to assess JVD secondary to body habitus. CARDIOVASCULAR: Normal rate, regular rhythm. RESPIRATORY: No accessory muscle use. Clear to auscultation, diminished throughout. Breath sounds equal bilaterally. On BiPAP GASTROINTESTINAL: Abdomen soft, obese non-tender, nondistended. No guarding. Skin/wound area as noted above MUSCULOSKELETAL: Extremities without clubbing, cyanosis, or edema. No obvious deformities. NEUROLOGICAL: Currently GCS 3T, recently intubated. Propofol infusion RASS -3. No gross focal/sensory deficits. Prior to intubation, moving all 4 extremities. Procedures 06/22 intubation Urinary Catheter: Yes Assessment to: Continue Caban insert reason: Measure Accurate Output Date of Insertion: Jun 21, 2017 Date of Removal: Jun 22, 2017 A/P Assessment and Plan This is a super morbidly obese female patient somnolent episodes, with hyponatremia,bipolar disorder, with possible polypharmacy. Patient with persistent respiratory decompensation requiring emergent intubation this a.m.. Neurologic: Bipolar disorder Depression Restless leg syndrome Possible lithium toxicity Polypharmacy Anxiety disorder Extreme lethargy/somnolence Metabolic encephalopathy- Cannaboids/ THC Neuro checks per ICU protocol 06/22 Intubated for airway protection and respiratory decompensation Benadryl 12.5 mg IV push 1 dose for dystonia secondary to metoclopramide 06/21 Patient home medications include Roperinole, Trazodone, Citalopram, Benztropine, Hydroxyzine and Alprazolam will hold for now 06/22 UDS-positive for Cannaboids/THC subsequent results pending F/U lithium level Respiratory: COPD Asthma Obesity hypoventilation syndrome Obstructive sleep apnea Acute Hypoxic/hypercapnic respiratory failure Maintain O2 sat greater than 92% 06/22 intubated 7.5 ETT, 21.5 cm at the lip Mechanical ventilationPRBC 550/18/5/.50 ABG PAO2 decreasing-108->79->63 today F/U ABG postintubation F/U CXR Duo nebs every 6 hours scheduled every 2 hours when necessary Ventilator bundle SBT trials when clinically indicated, as tolerated Methylprednisolone 40 mg every 12hr 06/21 D Dimer-0.33 Cardiovascular: Hypertension Continue patient's home medication lisinopril 5 mg /day 06/21 EKG-right bundle branch block left posterior fascicular block (patient has history of right bundle branch block F/U ECHO results Renal: Maintain Caban -- Strict I/Os FEN/GI: Hyponatremia Super morbid obesity Renal insufficiency Nausea and vomiting Hypercholesterolemia Maintain NPO status except ice chips and meds Obtain sodium levels every 6 hours- Initial Na level 131 Begin normal saline infusion 84cc/hour Creatinine 1.4 continue to monitor BMP Continue simvastatin Obtain lipid panel Heme/ID: Skin wound infection Monitor CBC, WBC count within normal limits Lactate 0.9 Empiric dosing Azactam, metronidazole, and vancomycin-white excoriated creamy malodorous large area involving skinfolds of pannus, cellulitis? LLE Endocrine: Hypothyroidism Diabetes mellitus TSH significantly elevated 5.4, obtain free T4 Continue Synthroid 100 mcgs daily Obtain hemoglobin A1c Glucose monitoring per ICU protocol-medium dose regimen -- SSI Prophylaxis: GI Prophylaxis Protonix 40 mg IV DVT Prophylaxis -- SCDs Heparin 5000u SQ every 8 hours Lines: Peripheral IVs 2 at providing adequate access at this time Dispo: This patient remains critically ill with one or more organ systems which are or may become a threat to life. I have spent in excess of 47 minutes discontinuously in the care and management of this patient. This time is exclusive of procedures, and includes, but is not limited to, evaluation of the patient, review of the medical record, discussions with family, consultants, nursing staff, or respiratory therapy, and documentation in the medical record. Physician Katie Benavidez MD Jun 22, 2017 08:26
--- NOTE | 2017-06-22 08:33 | RADRPT ---
EXAM DATE/TIME: 06/22/2017 08:14 [place] COMPARISON: CHEST SINGLE AP, June 21, 2017, 21:31. INDICATIONS : Post inubation & oral gastric tube placement, MEDICAL HISTORY : Chronic obstructive pulmonary disease. Hypercholesterolemia. Hypertension. Asthma. Thyroid disease. D iabetes. SURGICAL HISTORY : Cholecystectomy. Appendectomy. Hysterectomy. ENCOUNTER: Subsequent ACUITY: 2 days PAIN SCORE: LOCATION: chest FINDINGS: Significant deterioration in the lungs has occurred since the prior study. There is diffuse vascular engorgement, bibasilar airspace disease and possible early pulmonary edema. Endotracheal tube has been inserted and appears to be in satisfactory position. Orogastric tube can b e identified to the left upper quadrant of the abdomen. CONCLUSION: 1. Significant worsening of pulmonary status with diffuse vascular congestion and basilar airspace di sease characteristic of acute congestive heart failure. 2. Endotracheal tube in good position. 3. Distal tip of orogastric tube appears to be in cardia of stomach. Kang Coronado MD on June 22, 2017 at 8:26 Board Certified Radiologist. This report was verified electronically.
--- NOTE | 2017-06-22 08:39 | PD.PROCEDR ---
Procedure Note Procedure Endotracheal Intubation Diagnosis: Acute Hypoxic hypercapnic respiratory failure Indications: Same Consent: Emergent Anesthesia: see MAR Description of the Procedure: The patient was positioned in the sniffing position. Pre-oxygenation was performed using a BVM. Anesthesia was induced via rapid sequence with cricoid pressure. A CMAC 4 was used for laryngoscopy and a Grade 1 view was obtained. A 7.5 ETT cuffed endotracheal tube was inserted atraumatically through the vocal cords. Confirmation of correct endotracheal tube placement was made by equal and bilateral breath sounds and colorimetric CO2 detection. The endotracheal tube was secured at 21.5 cm at the teeth. There were no immediate complications noted. The patient remained hemodynamically stable throughout the procedure. A chest x-ray has been ordered. I personally performed the procedure. Katie Gonzalez MD Jun 22, 2017 08:39
[2017-06-22 08:47] LABS: BLOOD GAS BASE EXCESS -1.6 mmol/L (-2-2); BLOOD GAS CARBOXYHEMOGLOBIN 1.5 % (0-4); BLOOD GAS HCO3 24 mmol/L (22-26); BLOOD GAS METHEMOGLOBIN 1.6 % (0-2); BLOOD GAS O2 HGB SATURATION 90 % (90-100); BLOOD GAS OXYGEN CONTENT 15.1 Vol % (12.0-20.0); BLOOD GAS PCO2 55 mmHG (38-42); BLOOD GAS PO2 73 mmHG (61-120); BLOOD GAS TOTAL HGB 11.9 G/DL (12.0-16.0); TEMP CORR TO 98.6
[2017-06-22 08:48] LABS: CRITICAL VALUE YES; FIO2 50 %; OXYGEN DEVICE VENTILATOR; VENT SETTINGS AC/18/550/5PEEP
[2017-06-22 08:49] LABS: DRAW SITE LT BRACHIAL; NUMBER OF ARTERIAL PUNCTURES 1; STAT NO; ULNAR PULSE PRESENT
[2017-06-22] MEDS: DOCUSATE SODIUM 50 MG/SENNA 8.6 MG TAB PO SCH ×2 (09:00→20:55)
[2017-06-22] MEDS ORDERED: SODIUM CHLORIDE 0.9% FLUSH 10 ML FLUSH IV FLUSH SCH (09:00)
[2017-06-22] MEDS: LISINOPRIL 5 MG TAB PO SCH (09:00)
[2017-06-22] MEDS: PRAVASTATIN SOD 40 MG TAB PO SCH (09:00)
[2017-06-22] MEDS ORDERED: FUROSEMIDE 40 MG/4 ML VIAL IV PUSH ONE (09:00)
[2017-06-22 09:04] LABS: HEMATOCRIT 38.5 % (35.0-46.0); MEAN CELL VOLUME 92.1 FL (80.0-100.0); MEAN CORPUSCULAR HGB CONC 32.6 % (32.0-36.0); PLATELET COUNT 215 TH/MM3 (150-450); RED BLOOD COUNT 4.19 MIL/MM3 (4.00-5.30); REVIEW FLAG FINAL; WHITE BLOOD COUNT 9.8 TH/MM3 (4.0-11.0)
[2017-06-22 09:07] LABS: POTASSIUM 4.7 MEQ/L (3.5-5.1)
[2017-06-22 09:10] LABS: BICARBONATE 22.9 MEQ/L (21.0-32.0); MAGNESIUM 2.1 MG/DL (1.5-2.5)
[2017-06-22] MEDS: PROPOFOL 1000 MG/100 ML INJ 100 ML IV PRN ×7 (09:20→21:53)
[2017-06-22] MEDS: SODIUM CHLORIDE 0.9% FLUSH 10 ML FLUSH IV FLUSH SCH ×2 (09:20→20:55)
[2017-06-22] MEDS: PANTOPRAZOLE SODIUM 40 MG VIAL IV PUSH SCH (09:46)
[2017-06-22] MEDS: methylPREDNISolone SOD SUCC 40 MG/1 ML VIAL IV PUSH SCH ×2 (09:46→20:55)
[2017-06-22] MEDS: INSULIN ASPART SUPPLEMENTAL SCALE SQ SCH ×4 (09:47→20:55)
[2017-06-22] MEDS: SODIUM CHLORIDE 0.9% FLUSH 10 ML FLUSH IV FLUSH PRN ×2 (09:47→11:41)
[2017-06-22] MEDS: fentaNYL DRIP 250 ML IV PRN (10:20)
--- NOTE | 2017-06-22 10:42 | PD.PROCEDR ---
Procedure Note Procedure Procedure: Arterial Line Placement Right radial arterial line Diagnosis Acute hypoxic/hypercapnic respiratory failure, pulmonary edema Indications: Same Consent: Emergent Description of the Procedure: The right wrist was prepped and draped sterilely. 1% lidocaine was used for local anesthesia. The pulse was located and a needle was advanced into the artery. A 20-gauge gauge, 1.34cm catheter was advanced into the artery using a modified Seldinger technique. The catheter was sutured to the skin and a sterile dressing was applied. The catheter was connected to a pressure transducer and an arterial waveform was noted. There were no immediate complications noted. There was minimal EBL. I personally performed the procedure. Katie Gonzalez MD Jun 22, 2017 10:42
--- NOTE | 2017-06-22 11:09 | ECHRPT ---
Indication: SHORTNESS OF BREATH CONCLUSIONS Normal left ventricular size. Wall thickness is normal. The left ventricular systolic function is normal with an estimated ejection fraction in the range of 55-60%. The right ventricle is moderately dilated. The right ventricular systoilc function is mildly decreased. The right atrial size is mildly dilated. The interatrial septum not well visualized. The aortic root and proximal ascending aorta are not well visualized. Trace mitral valve regurgitation. No mitral valve stenosis. Aortic valve sclerosis is present. No aortic valve regurgitation. No aortic valve stenosis. There is trace tricuspid valve regurgitation. The inferior vena cava is dilated. There is less than 50% respiratory change in dimension of the inferior vena cava (abnormal). Right heart dilated R/O Pulmonary embolism or corpulmonale BP: 113 / 64 HR: 81 Rhythm: Sinus MEASUREMENTS (Male / Female) Normal Values Technical Quality:Poor 2D ECHO LV Diastolic Diameter PLAX 5.3 cm 4.2 - 5.9 / 3.9 - 5.3 cm LV Systolic Diameter PLAX 3.6 cm IVS Diastolic Thickness 0.9 cm 0.6 - 1.0 / 0.6 - 0.9 cm LVPW Diastolic Thickness 0.9 cm 0.6 - 1.0 / 0.6 - 0.9 cm LV Relative Wall Thickness 0.3 LVOT Diameter 2.1 cm Aortic Root Diameter 2.9 cm LA Systolic Diameter LX 2.8 cm 3.0 - 4.0 / 2.7 - 3.8 cm M-MODE AV Cusp Separation MM 1.9 cm DOPPLER AV Peak Velocity 152.0 cm/s AV Peak Gradient 9.2 mmHg AV Mean Gradient 4.0 mmHg AV Velocity Time Integral 26.4 cm LVOT Peak Velocity 107.0 cm/s LVOT Peak Gradient 4.6 mmHg LVOT Velocity Time Integral 19.5 cm LVOT Cardiac Index 1934.0 cm/minm AV Area Cont Eq vti 2.6 cm AV Area Cont Eq pk 2.4 cm Mitral E Point Velocity 61.1 cm/s Mitral A Point Velocity 90.7 cm/s Mitral E to A Ratio 0.7 LV E' Lateral Velocity 13.7 cm/s Mitral E to LV E' Lateral Ratio 4.5 LV E' Septal Velocity 8.9 cm/s Mitral E to LV E' Septal Ratio 6.9 TR Peak Velocity 235.0 cm/s TR Peak Gradient 22.1 mmHg PV Peak Velocity 102.0 cm/s PV Peak Gradient 4.2 mmHg FINDINGS LEFT VENTRICLE Normal left ventricular size. Wall thickness is normal. The left ventricular systolic function is normal with an estimated ejection fraction in the range of 55-60%. RIGHT VENTRICLE The right ventricle is moderately dilated. The right ventricular systoilc function is mildly decreased. LEFT ATRIUM The left atrial size is normal. RIGHT ATRIUM The right atrial size is mildly dilated. ATRIAL SEPTUM The interatrial septum not well visualized. AORTA The aortic root and proximal ascending aorta are not well visualized. MITRAL VALVE Structurally normal mitral valve. Trace mitral valve regurgitation. No mitral valve stenosis. AORTIC VALVE Aortic valve sclerosis is present. No aortic valve regurgitation. No aortic valve stenosis. TRICUSPID VALVE Structurally normal tricuspid valve. There is trace tricuspid valve regurgitation. PULMONARY VALVE No pulmonary valve regurgitation or stenosis. VESSELS The inferior vena cava is dilated. There is less than 50% respiratory change in dimension of the inferior vena cava (abnormal). PERICARDIUM No pericardial effusion. OTHER FINDINGS Right heart dilated R/O Pulmonary embolism or corpulmonale Judie Castro MD, FACC, FRCP (Electronically Signed) Final Date:22 June 2017 11:08
--- NOTE | 2017-06-22 14:14 | EKG ---
Date Performed: 06/21/2017 Time Performed: 22:10:45 PTAGE: 56 years EKG: Sinus rhythm INDETERMINATE AXIS RIGHT BUNDLE BRANCH BLOCK LEFT POSTERIOR FASCICULAR BLOCK Compared to previous tr acing there is a new Right bundle branch block ABNORMAL ECG PREVIOUS TRACING : 12/03/1997 03.29 DOCTOR: Judie Castro Interpretating Date/Time 06/22/2017 14:12:04
[2017-06-22 17:00] LABS: HEMOGLOBIN A1a 1.2 %; HEMOGLOBIN A1b 1.2 %; HEMOGLOBIN Ao 78.3 %; HEMOGLOBIN F 1.6 %; HEMOGLOBIN LA1C 3.4 %; HEMOGLOBIN P3 4.9 %
[2017-06-22 18:25] LABS: THYROXINE (T4) 9.7 MCG/DL (4.8-13.9)
[2017-06-22 18:26] LABS: HDL CHOLESTEROL 41.4 MG/DL (40.0-60.0); LDL CHOLESTEROL 50 MG/DL (0-99)
[2017-06-23] VITALS (23 sets, daily range): BP systolic 96–125; BP diastolic 49–63; PULSE 41–77; RESP 18–28; TEMP 97.5–99.3; O2SAT 94–100
[2017-06-23] MEDS: PROPOFOL 1000 MG/100 ML INJ 100 ML IV PRN ×10 (00:08→23:03)
[2017-06-23] MEDS: AZTREONAM INJ 2,000 MG in SODIUM CHLORIDE 0.9% INJ 100 ML IV SCH ×3 (00:55→16:34)
[2017-06-23] MEDS: metroNIDAZOLE 500 MG INJ 100 ML IV SCH ×3 (02:11→18:18)
[2017-06-23] MEDS: HEPARIN SODIUM - SQ 10,000 UNITS/ML VIAL SQ SCH ×3 (05:48→21:26)
[2017-06-23] MEDS: LEVOTHYROXINE SODIUM 100 MCG TAB PO SCH (05:48)
[2017-06-23] MEDS: INSULIN ASPART SUPPLEMENTAL SCALE SQ SCH ×4 (06:27→21:00)
[2017-06-23] MEDS: PANTOPRAZOLE SODIUM 40 MG VIAL IV PUSH SCH (08:02)
[2017-06-23] MEDS: fentaNYL DRIP 250 ML IV PRN ×2 (08:02→17:07)
[2017-06-23] MEDS: methylPREDNISolone SOD SUCC 40 MG/1 ML VIAL IV PUSH SCH ×2 (08:03→21:26)
[2017-06-23] MEDS: SODIUM CHLORIDE 0.9% FLUSH 10 ML FLUSH IV FLUSH SCH ×2 (08:03→21:26)
[2017-06-23] MEDS: PRAVASTATIN SOD 40 MG TAB PO SCH (08:03)
[2017-06-23] MEDS: LISINOPRIL 5 MG TAB PO SCH (08:03)
[2017-06-23] MEDS: DOCUSATE SODIUM 50 MG/SENNA 8.6 MG TAB PO SCH ×2 (08:03→21:27)
[2017-06-23] MEDS: RESP: ALBUTEROL 2.5 MG/IPRATROPIUM 0.5 MG NEB (SCH) NEB ×2 (08:56→20:04)
[2017-06-23] MEDS: CHLORHEXIDINE 0.12% (ORAL KIT) 15 ML CUP MT SCH ×2 (10:04→21:26)
[2017-06-23] MEDS ORDERED: VANCOMYCIN INJ 2,500 MG in SODIUM CHLORID 0.9% 500 ML INJ 500 ML IV ONE (11:00)
[2017-06-23 14:23] LABS: BATH SALTS (MDPV) UR ND (NEG); ECSTASY (MDMA) UR ND (NEG); HEROIN (6-ACETYLMORPHINE) UR ND (NEG); K2 SPICE UR ND (NEG); OBMETHADONE UR ND (NEG); PHENCYCLIDINE URINE ND (NEG)
[2017-06-23 14:24] LABS: GABAPENTIN UR ND (NEG); HYDROMORPHONE U ND (NEG)
[2017-06-23] MEDS: NYSTATIN 100,000 U/GM PWD 15 GM BTL TOPICAL SCH ×2 (14:30→21:27)
--- NOTE | 2017-06-23 14:31 | HHI.CCPN ---
Subjective Remarks/Hospital Course This is a 56-year-old female that presented to the ED by EMS transport [facility] with complaint of vomiting 3 days generalized weakness and mild confusion. Patient was identified by EMS to have an Accu-Chek of 350. Patient has history of diabetes, hypertension, asthma/COPD , dyslipidemia, RBBB, morbid obesity, and anxiety depression and bipolar disorder. Patient here denies headache chest pain or abdominal pain. Patient denies diarrhea. Patient denies any injury or fall. Patient rates pain 0/10 in intensity. In route to the hospital patient had EKG which showed right bundle branch block pattern which patient has by history, was administered Zofran 4 mg IV for complaint of nausea and vomiting (no witnessed vomiting) , and given a 500 cc bolus of normal saline, the patient then received metoclopramide. Patient does not report any bilious emesis hematemesis coffee- ground emesis melena or hematochezia. The patient was placed on by BIPAP, with slight improvement of ABG. Upon evaluation to the ED, the patient was noted to be having dystonia movement, confusion with bouts of somnolence, possibly due to noted hyponatremia, or and/or metoclopramide, the patient's O2 saturation was noted to be 96% on 12/8 FIO2.40% BiPAP. The patient was given IV Benadryl. Critical care medicine is consulted for management. Subjective: 06/22: At approximately 0100am, the patient became confused, combative, more agitated. Urine drug screen revealed positive for cannabinoids. The patient received Benadryl 25 mg IV and 1 mg of Ativan in divided doses over 2 hours, with resolution. At 0600 a.m., the patient again became agitated's decreasing mentation and confusion ,ABG was drawn showing decreasing oxygen saturation/ PAO2 levels. The patient was emergently intubated 1 attempt uneventfully. 06/23: Afebrile. Yesterday the patient was noted to be in pulmonary edema, given Lasix 40 mg IV last am, diuresed approximately 4 L prior to transfer to [facility]. The patient was transferred from [facility] last evening . No acute events overnight .The patient remains intubated, and sedated, when sedation minimized the patient's agitated not following commands. Echo performed revealed right ventricle slight decrease in function with RV mildly dilated, last night. Plan for CT pulmonary angiogram, will f/u results. FiO2 has been weaned down to 50%. ABG pending. Objective Vital Signs Date Time Temp Pulse Resp B/P (MAP) Pulse Ox O2 Delivery O2 Flow Rate FiO2 06/23/17 12:00 49 06/23/17 12:00 99.0 18 96/52 (67) 94 117/58 (77) 06/23/17 08:48 50 06/22/17 17:05 Ventilator 06/22/17 09:00 Intake and Output 06/23/17 06/23/17 06/24/17 08:00 16:00 00:00 Intake Total 600 ml 1027 ml Balance 600 ml 1027 ml Result Diagram: 06/22/17 0750 06/23/17 0540 Imaging Last Impressions Head CT 06/21/172121 Signed Impressions: Service Date/Time: Wednesday, June 21, 2017 21:43 - CONCLUSION: No acute disease. Kang Coronado MD Chest X-Ray 06/21/172121 Signed Impressions: Service Date/Time: Wednesday, June 21, 2017 21:31 - CONCLUSION: No acute disease. Kang Corondao MD Objective Remarks GENERAL: Super morbidly obese female patient to Betadine sedated with intermittent bouts of confusion/agitation SKIN: Warm and dry. Large pannus with noted malodorous, reddened, excoriated area, with white exudative area noted HEAD: Atraumatic. Normocephalic. EYES: Pupils equal and round. No scleral icterus. No injection or drainage. ENT: No nasal bleeding or discharge. Mucous membranes pink and moist. Mallampati classification IV, small oral aperture noted difficult airway NECK: Trachea midline. Unable to assess JVD secondary to body habitus. CARDIOVASCULAR: Normal rate, regular rhythm. RESPIRATORY: No accessory muscle use. Clear to auscultation, diminished throughout. Breath sounds equal bilaterally. GASTROINTESTINAL: Abdomen soft, obese non-tender, nondistended. No guarding. Skin/wound area as noted above MUSCULOSKELETAL: Extremities without clubbing, cyanosis, or edema. No obvious deformities. NEUROLOGICAL: Currently GCS 3T, r intubated. Propofol and fentanyl infusion RASS -2. No gross focal/sensory deficits. Prior to intubation, moving all 4 extremities. Procedures 06/22 intubation Urinary Catheter: Yes Date of Insertion: Jun 21, 2017 Date of Removal: Jun 22, 2017 A/P Assessment and Plan This is a super morbidly obese female patient presented with somnolent episodes and intermittent agitation, with hyponatremia,bipolar disorder, with possible polypharmacy. Patient with persistent respiratory decompensation requiring emergent intubation this a.m.. Neurologic: Bipolar disorder Depression Restless leg syndrome Possible lithium toxicity Polypharmacy Anxiety disorder Extreme lethargy/somnolence Metabolic encephalopathy Cannaboids/ THC Neuro checks per ICU protocol 06/22 Intubated for airway protection and respiratory decompensation Benadryl 12.5 mg IV push 1 dose for dystonia secondary to metoclopramide 06/21 Patient home medications include Roperinole, Trazodone, Citalopram, Benztropine, Hydroxyzine and Alprazolam will hold for now 06/22 UDS-positive for Cannaboids/THC subsequent results pending 06/21 lithium level-0.5 (low normal) Respiratory: COPD Asthma Obesity hypoventilation syndrome Obstructive sleep apnea Acute Hypoxic/hypercapnic respiratory failure Maintain O2 sat greater than 92% 06/22 intubated for airway protection and respiratory decompensation 7.5 ETT, 22.5 cm at the lip Mechanical ventilationPRBC 550/18/5/.50 Follow-up ABG ABG [id number] pulmonary edema-Lasix given40 mg IV-diuresed 4 L Duo nebs every 6 hours scheduled every 2 hours when necessary Ventilator bundle SBT trials when clinically indicated, as tolerated Methylprednisolone 40 mg every 12hr 06/21 D Dimer-0.33, patient agitated, and unable to perform CT angiogram at that time 06/23-Echo performed on 06/22 last evening postintubation showed RV mildly dilated , RA dilation, EF 55-60%-CT angiogram pulmonary ordered follow-up results Cardiovascular: Hypertension Lisinopril 5 mg /day 06/21 EKG-right bundle branch block left posterior fascicular block (patient has history of right bundle branch block 06/22 9 ECHO results-RV slightly decreased function, right atrium mildly dilated , trace tricuspid regurg, noted IVC dilation,EF 55-60% Renal: Maintain Caban -- Strict I/Os FEN/GI: Hyponatremia-resolved Super morbid obesity Renal insufficiency Nausea and vomiting Hypercholesterolemia Maintain NPO status Na 138 IV fluids discontinued 06/22 Creatinine 1.4 continue to monitor BMP Continue simvastatin Obtain lipid panel Heme/ID: Skin wound infection Monitor CBC, WBC count within normal limits Lactate 0.9 Empiric dosing Azactam, metronidazole, and vancomycin-white excoriated creamy malodorous large area involving skinfolds of pannus, and cellulitis? LLE Nystatin powder to pannus area Endocrine: Hypothyroidism Diabetes mellitus TSH significantly elevated 5.4, free T4- 9.7 WNL Continue Synthroid 100 mcgs daily Obtain hemoglobin A1c Glucose monitoring per ICU protocol-medium dose regimen -- SSI Prophylaxis: GI Prophylaxis Protonix 40 mg IV DVT Prophylaxis -- SCDs Heparin 5000u SQ every 8 hours Lines: Peripheral IVs 2 at providing adequate access at this time Dispo: This patient remains critically ill with one or more organ systems which are or may become a threat to life. I have spent in excess of 41 minutes discontinuously in the care and management of this patient. This time is exclusive of procedures, and includes, but is not limited to, evaluation of the patient, review of the medical record, discussions with family, consultants, nursing staff, or respiratory therapy, and documentation in the medical record. Physician Katie Benavidez MD Jun 23, 2017 14:31
[2017-06-23 14:40] LABS: BLOOD GAS BASE EXCESS -2.6 mmol/L (-2-2); BLOOD GAS CARBOXYHEMOGLOBIN 1.1 % (0-4); BLOOD GAS HCO3 23 mmol/L (22-26); BLOOD GAS METHEMOGLOBIN 1.6 % (0-2); BLOOD GAS O2 HGB SATURATION 93 % (90-100); BLOOD GAS OXYGEN CONTENT 15.7 Vol % (12.0-20.0); BLOOD GAS PCO2 46 mmHg (38-42); BLOOD GAS PO2 85 mmHg (61-120); BLOOD GAS TOTAL HGB 11.9 G/DL (12.0-16.0); CRITICAL VALUE NO; TEMP CORR TO 98.6
[2017-06-23 14:41] LABS: DRAW SITE ALINE; FIO2 50 %; STAT NO
[2017-06-23] MEDS ORDERED: DEXMEDETOMIDINE INJ 200 MCG in SODIUM CHLORIDE 0.9% INJ 50 ML IV PRN (15:00)
[2017-06-23 15:46] LABS: AUTOMATED NEUTROPHIL # 11.8 TH/MM3 (1.8-7.7); BASOPHIL % 0.1 % (0.0-2.0); HEMATOCRIT 37.9 % (35.0-46.0); HEMO FLAGS DIFF FINAL; LYMPH % 6.3 % (9.0-44.0); LYMPHOCYTE # 0.8 TH/MM3 (1.0-4.8); MEAN CELL VOLUME 95.9 FL (80.0-100.0); MEAN CORPUSCULAR HEMOGLOBIN 30.6 PG (27.0-34.0); MEAN CORPUSCULAR HGB CONC 31.9 % (32.0-36.0); MONO % 3.2 % (0.0-8.0); NEUT % 90.4 % (16.0-70.0); PLATELET COUNT 213 TH/MM3 (150-450); RED BLOOD COUNT 3.95 MIL/MM3 (4.00-5.30); RED CELL DISTRIBUTION WIDTH 13.8 % (11.6-17.2); WHITE BLOOD COUNT 13.1 TH/MM3 (4.0-11.0)
[2017-06-23] MEDS ORDERED: IODIXANOL 320 MG/ML 10 ML VIAL (for Rad CT) IV ONE (15:47)
[2017-06-23 16:04] LABS: BICARBONATE 24.7 MEQ/L (21.0-32.0); MAGNESIUM 2.3 MG/DL (1.5-2.5); POTASSIUM 4.4 MEQ/L (3.5-5.1)
--- NOTE | 2017-06-23 16:19 | RADRPT ---
EXAM DATE/TIME: 06/23/2017 15:11 [facility] COMPARISON: No previous studies available for comparison. INDICATIONS : Respiratory distress. IV CONTRAST: 50 cc Visipaque (iodixanol) IV RADIATION DOSE: 32.67 CTDIvol (mGy) MEDICAL HISTORY : Chronic obstructive pulmonary disease. Diabetes mellitus type 2. Hypertension. SURGICAL HISTORY : Hysterectomy. ENCOUNTER: Initial ACUITY: 3 days PAIN SCALE: Non-responsive LOCATION: Chest TECHNIQUE: Volumetric scanning of the chest was performed using a pulmonary embolism protocol MIP images were re constructed. Using automated exposure control and adjustment of the mA and/or kV according to patien t size, radiation dose was kept as low as reasonably achievable to obtain optimal diagnostic quality images. DICOM format image data is available electronically for review and comparison. Follow-up recommendations for detected pulmonary nodules are based at a minimum on nodule size and pa tient risk factors according to Fleischner Society Guidelines. FINDINGS: There is suboptimal opacification of the pulmonary arteries due to poor cardiac output. No large pulm onary emboli are identified. The heart is enlarged. Posterior bibasilar patchiness is noted consist ent with atelectasis and/or minimal infiltrates. No pulmonary nodule or mass is noted. No mediastin al, hilar or axillary lymphadenopathy is noted. An endotracheal tube has its tip in the right mainst em bronchus. This should be pulled back at least 3 cm for a more optimal positioning. The liver is e nlarged and demonstrates diffuse fatty infiltration. The spleen is also enlarged. A nasogastric tub e has its tip below the diaphragm. CONCLUSION: 1. Endotracheal tube has its tip in the right mainstem bronchus. This should be pulled back at least 3 cm from more optimal positioning. 2. No large pulmonary emboli identified on the suboptimal CT pulmonary angiogram due to poor cardiac output. 3. Posterior bibasilar atelectasis and/or infiltrates. 4. Enlarged fatty liver. 5. Mild splenomegaly. 6. Cardiomegaly. Preston Montoya MD on June 23, 2017 at 15:57 Board Certified Radiologist. This report was verified electronically.
--- NOTE | 2017-06-23 16:23 | RADRPT ---
EXAM DATE/TIME: 06/23/2017 15:46 [facility] COMPARISON: CHEST SINGLE AP, June 22, 2017, 8:14. INDICATIONS : Respiratory failure. MEDICAL HISTORY : Chronic obstructive pulmonary disease. Hypercholesterolemia, Hypertension. Asthma. Thyroid disease. D iabetes. SURGICAL HISTORY : Cholecystectomy. Appendectomy. Hysterectomy. ENCOUNTER: Subsequent ACUITY: 3 days PAIN SCORE: Non-responsive. LOCATION: Bilateral chest FINDINGS: The endotracheal tube is noted at the level of the christos. This could be pulled back several centime ters for more optimal positioning. A nasogastric tube has its tip below the diaphragm. The heart is enlarged. Bibasilar patchiness is noted consistent with probable atelectasis and/or infiltrates. CONCLUSION: 1. Endotracheal tube has its tip at the level of the christos. This could be pulled back several centi meters for a more optimal position. 2. Cardiomegaly. 3. Bibasilar patchiness consistent with atelectasis and/or infiltrates. Preston Montoya MD on June 23, 2017 at 16:12 Board Certified Radiologist. This report was verified electronically.
[2017-06-23] MEDS: DEXMEDETOMIDINE INJ 1,000 MCG in SODIUM CHLOR 0.9% 250 ML INJ 240 ML IV PRN (21:54)
[2017-06-24] VITALS (27 sets, daily range): BP systolic 92–135; BP diastolic 54–89; PULSE 40–87; RESP 18–36; TEMP 97.9–98.9; O2SAT 90–99
[2017-06-24] MEDS: PROPOFOL 1000 MG/100 ML INJ 100 ML IV PRN ×11 (02:08→22:35)
[2017-06-24] MEDS: AZTREONAM INJ 2,000 MG in SODIUM CHLORIDE 0.9% INJ 100 ML IV SCH ×3 (03:58→17:08)
[2017-06-24] MEDS: metroNIDAZOLE 500 MG INJ 100 ML IV SCH ×3 (03:59→17:34)
[2017-06-24] MEDS: CHLORHEXIDINE GLUCONATE 2 % 1 PACK (2 CLOTHS) TOP SCH (04:00)
[2017-06-24] MEDS: HEPARIN SODIUM - SQ 10,000 UNITS/ML VIAL SQ SCH ×3 (04:54→21:20)
[2017-06-24 05:47] LABS: HEMATOCRIT 39.3 % (35.0-46.0); MEAN CORPUSCULAR HEMOGLOBIN 30.3 PG (27.0-34.0); MEAN CORPUSCULAR HGB CONC 31.6 % (32.0-36.0); PLATELET COUNT 184 TH/MM3 (150-450); RED CELL DISTRIBUTION WIDTH 13.8 % (11.6-17.2); REVIEW FLAG FINAL; WHITE BLOOD COUNT 11.6 TH/MM3 (4.0-11.0)
[2017-06-24] MEDS: INSULIN ASPART SUPPLEMENTAL SCALE SQ SCH (05:56)
[2017-06-24] MEDS: LEVOTHYROXINE SODIUM 100 MCG TAB PO SCH (05:57)
[2017-06-24 06:00] LABS: BLOOD GAS BASE EXCESS -2.1 mmol/L (-2-2); BLOOD GAS CARBOXYHEMOGLOBIN 1.2 % (0-4); BLOOD GAS HCO3 23 mmol/L (22-26); BLOOD GAS METHEMOGLOBIN 1.5 % (0-2); BLOOD GAS O2 HGB SATURATION 92 % (90-100); BLOOD GAS OXYGEN CONTENT 16.4 Vol % (12.0-20.0); BLOOD GAS PCO2 42 mmHg (38-42); BLOOD GAS PO2 78 mmHg (61-120); BLOOD GAS TOTAL HGB 12.6 G/DL (12.0-16.0); CRITICAL VALUE NO; FIO2 50 %; OXYGEN DEVICE VENTILATOR; TEMP CORR TO 98.6; VENT SETTINGS AC18/500/7PEEP
[2017-06-24 06:01] LABS: DRAW SITE ART LINE; STAT NO
--- NOTE | 2017-06-24 06:08 | RADRPT ---
EXAM DATE/TIME: 06/24/2017 04:38 [facility] COMPARISON: CHEST SINGLE AP, June 23, 2017, 15:46. INDICATIONS : Shortness of breath. MEDICAL HISTORY : Chronic obstructive pulmonary disease. Hypertension Asthma. SURGICAL HISTORY : None. ENCOUNTER: Subsequent ACUITY: 4 - 6 days PAIN SCORE: Non-responsive. LOCATION: Bilateral chest FINDINGS: A single view of the chest demonstrates endotracheal tube in good position. Nasogastric tube enters s tomach. Mild basilar airspace disease. No significant effusion. No pneumothorax. Cardiomegaly. CONCLUSION: Endotracheal tube and nasogastric tube in good position. Mild basilar opacity similar to June 23 . Franck Desai MD on June 24, 2017 at 6:06 Board Certified Radiologist. This report was verified electronically.
[2017-06-24 06:16] LABS: BICARBONATE 24.5 MEQ/L (21.0-32.0); MAGNESIUM 2.3 MG/DL (1.5-2.5); POTASSIUM 4.6 MEQ/L (3.5-5.1)
[2017-06-24] MEDS: RESP: ALBUTEROL 2.5 MG/IPRATROPIUM 0.5 MG NEB (SCH) NEB ×3 (08:26→20:18)
--- NOTE | 2017-06-24 09:27 | HHI.CCPN ---
Subjective Remarks/Hospital Course This is a 56-year-old female that presented to the ED by EMS transport [facility] with complaint of vomiting 3 days generalized weakness and mild confusion. Patient was identified by EMS to have an Accu-Chek of 350. Patient has history of diabetes, hypertension, asthma/COPD , dyslipidemia, RBBB, morbid obesity, and anxiety depression and bipolar disorder. Patient here denies headache chest pain or abdominal pain. Patient denies diarrhea. Patient denies any injury or fall. Patient rates pain 0/10 in intensity. In route to the hospital patient had EKG which showed right bundle branch block pattern which patient has by history, was administered Zofran 4 mg IV for complaint of nausea and vomiting (no witnessed vomiting) , and given a 500 cc bolus of normal saline, the patient then received metoclopramide. Patient does not report any bilious emesis hematemesis coffee- ground emesis melena or hematochezia. The patient was placed on by BIPAP, with slight improvement of ABG. Upon evaluation to the ED, the patient was noted to be having dystonia movement, confusion with bouts of somnolence, possibly due to noted hyponatremia, or and/or metoclopramide, the patient's O2 saturation was noted to be 96% on 12/8 FIO2.40% BiPAP. The patient was given IV Benadryl. Critical care medicine is consulted for management. Subjective: 06/22: At approximately 0100am, the patient became confused, combative, more agitated. Urine drug screen revealed positive for cannabinoids. The patient received Benadryl 25 mg IV and 1 mg of Ativan in divided doses over 2 hours, with resolution. At 0600 a.m., the patient again became agitated's decreasing mentation and confusion ,ABG was drawn showing decreasing oxygen saturation/ PAO2 levels. The patient was emergently intubated 1 attempt uneventfully. 06/23: Afebrile. Yesterday the patient was noted to be in pulmonary edema, given Lasix 40 mg IV last am, diuresed approximately 4 L [facility]. The patient was transferred from [facility] last evening . No acute events overnight .The patient remains intubated, and sedated, when sedation minimized the patient's agitated not following commands. Echo performed revealed right ventricle slight decrease in function with RV mildly dilated, last night. Plan for CT pulmonary angiogram, will f/u results. FiO2 has been weaned down to 50%. ABG pending. 06/24: wbc downtrending. CT pulmonary angiogram overnight negative for PE. agitation is a problem, on precedex, propofol, fentanyl. family not at bedside when I came to evaluate patient. will attempt to contact them. Objective Vital Signs Date Time Temp Pulse Resp B/P (MAP) Pulse Ox O2 Delivery O2 Flow Rate FiO2 06/24/17 08:26 95 50 06/24/17 06:00 40 06/24/17 04:01 18 135/61 (85) 105/77 (86) 06/24/17 04:00 98.7 06/22/17 17:05 Ventilator 06/22/17 09:00 Intake and Output 06/24/17 06/24/17 06/25/17 08:00 16:00 00:00 Intake Total 255.5 ml Output Total 1450 ml Balance -1194.5 ml Result Diagram: 06/24/17 0404 06/24/17 0404 Other Results Microbiology Date/Time Source Procedure Growth Status 06/22/17 00:41 Urine Catheterized Urine Urine Culture - Final NO GROWTH IN 48 HOURS. Complete Laboratory Tests Test 06/23/17 14:20 06/24/17 04:53 Blood Gas Puncture Site STEPHANIE ART LINE Blood Gas Patient Temperature 98.6 98.6 Blood Gas HCO3 23 mmol/L (22-26) 23 mmol/L (22-26) Blood Gas Base Excess -2.6 mmol/L (-2-2) -2.1 mmol/L (-2-2) Blood Gas Oxygen Saturation 93 % (90-100) 92 % (90-100) Arterial Blood pH 7.31 (7.380-7.420) 7.35 (7.380-7.420) Arterial Blood Partial Pressure CO2 46 mmHg (38-42) 42 mmHg (38-42) Arterial Blood Partial Pressure O2 85 mmHg (61-120) 78 mmHg (61-120) Arterial Blood Oxygen Content 15.7 Vol % (12.0-20.0) 16.4 Vol % (12.0-20.0) Arterial Blood Carboxyhemoglobin 1.1 % (0-4) 1.2 % (0-4) Arterial Blood Methemoglobin 1.6 % (0-2) 1.5 % (0-2) Blood Gas Hemoglobin 11.9 G/DL (12.0-16.0) 12.6 G/DL (12.0-16.0) Blood Gas Inspired Oxygen 50 % 50 % Oxygen Delivery Device VENTILATOR Blood Gas Ventilator Setting AC18/500/7PEEP Imaging Last Impressions Chest X-Ray 06/24/17 0600 Signed Impressions: Service Date/Time: Saturday, June 24, 2017 04:38 - CONCLUSION: Endotracheal tube and nasogastric tube in good position. Mild basilar opacity similar to June 23. Franck Desai MD CT Angiography 06/23/17 0000 Signed Impressions: Service Date/Time: Friday, June 23, 2017 15:11 - CONCLUSION: 1. Endotracheal tube has its tip in the right mainstem bronchus. This should be pulled back at least 3 cm from more optimal positioning. 2. No large pulmonary emboli identified on the suboptimal CT pulmonary angiogram due to poor cardiac output. 3. Posterior bibasilar atelectasis and/or infiltrates. 4. Enlarged fatty liver. 5. Mild splenomegaly. 6. Cardiomegaly. Preston Montoya MD Head CT [id number]/[id number] Signed Impressions: Service Date/Time: Wednesday, June 21, 2017 21:43 - CONCLUSION: No acute disease. Kang Coronado MD Objective Remarks GENERAL: Super morbidly obese female patient intubated sedated with intermittent bouts of confusion/agitation SKIN: Warm and dry. Large pannus with noted malodorous, reddened, excoriated area, with white exudative area noted HEAD: Atraumatic. Normocephalic. EYES: Pupils equal and round. No scleral icterus. No injection or drainage. ENT: No nasal bleeding or discharge. Mucous membranes pink and moist. Mallampati classification IV, small oral aperture noted difficult airway NECK: Trachea midline. Unable to assess JVD secondary to body habitus. CARDIOVASCULAR: Normal rate, regular rhythm. RESPIRATORY: No accessory muscle use. Clear to auscultation, diminished throughout. Breath sounds equal bilaterally. GASTROINTESTINAL: Abdomen soft, obese non-tender, nondistended. No guarding. Skin/wound area as noted above MUSCULOSKELETAL: Extremities without clubbing, cyanosis, or edema. No obvious deformities. NEUROLOGICAL: RASS +1 or -3. No gross focal/sensory deficits. moves all extremities. w/d to pain x 4. does not follow commands. intermittently agitated. Procedures 06/22 intubation Date of Insertion: Jun 21, 2017 Date of Removal: Jun 22, 2017 A/P Assessment and Plan Assessment: This is a super morbidly obese female patient presented with somnolent episodes and intermittent agitation, with hyponatremia,bipolar disorder, with possible polypharmacy. Patient with persistent acute hypoxic and hypercarbic respiratory failure as well as severe agitated delirium. remains critically ill and off pathway. unsafe for SBT today given her agitation. With her history of possible acute dystonia, agitation may be difficult to control. Neurologic: Bipolar disorder Depression Restless leg syndrome Polypharmacy Anxiety disorder Toxic encephalopathy Agitated Delirium Metabolic encephalopathy Cannaboids/ THC Neuro checks per ICU protocol 06/22 Intubated for respiratory decompensation Benadryl 12.5 mg IV push 1 dose for dystonia secondary to metoclopramide 06/21 Patient home medications include Roperinole, Trazodone, Citalopram, Benztropine, Hydroxyzine and Alprazolam will hold for now 06/22 UDS-positive for Cannaboids/THC 06/21 lithium level-0.5 (low normal) start oxycodone scheduled for background pain control start guanfacine 2mg po q12h for agitated delirium- alpha2 agonist and unlikely to cause dystonia will hold off on dopaminergic agents, atypical antipsychotics for now. Respiratory: COPD Asthma Obesity hypoventilation syndrome Obstructive sleep apnea Acute Hypoxic/hypercapnic respiratory failure Maintain O2 sat greater than 92% 06/22 intubated for respiratory decompensation 7.5 ETT, 23 at the teeth today- will retract 3 cm. 06/[id number] pulmonary edema-Lasix given40 mg IV-diuresised 4 L Duo nebs every 6 hours scheduled every 2 hours when necessary Ventilator bundle not ready for SBT today given agitation. off pathway. Methylprednisolone 40 mg every 12hr 06/21 D Dimer-0.33 06/23-Echo performed on 06/22 showed RV mildly dilated, RA dilation, EF 55-60% 06/23 CT pulmonary angiogram - negative for large PE. Cardiovascular: Hypertension Sinus Bradycardia Lisinopril 5 mg /day 06/21 EKG-right bundle branch block left posterior fascicular block (patient has history of right bundle branch block 06/22 9 ECHO results-RV slightly decreased function, right atrium mildly dilated , trace tricuspid regurg, noted IVC dilation,EF bradycardia likely secondary to sedation. otherwise hemodynamically stable. will tolerate HR > 40. Renal: Maintain Caban -- Strict I/Os FEN/GI: Hyponatremia-resolved Super morbid obesity Chronic Renal insufficiency, unknown stage at baseline Nausea and vomiting Hypercholesterolemia start TF at trickles Na 138 unknown baseline. Cr 1.5 today. monitor closely. Continue simvastatin 06/23: LDL 50, HDL 41, trig 112 Lasix 40mg iv x 1. Heme/ID: Skin wound infection Monitor CBC, WBC count within normal limits Lactate 0.9 Empiric dosing Azactam, metronidazole, and vancomycin-white excoriated creamy malodorous large area involving skinfolds of pannus, and cellulitis? LLE Nystatin powder to pannus area All cultures NGTD. Endocrine: Hypothyroidism Diabetes mellitus TSH significantly elevated 5.4, free T4- 9.7 WNL Continue Synthroid 100 mcgs daily Obtain hemoglobin A1c Glucose monitoring per ICU protocol-medium dose regimen -- SSI Prophylaxis: GI Prophylaxis Protonix 40 mg IV DVT Prophylaxis -- SCDs Heparin 5000u SQ every 8 hours Lines: Peripheral IVs 2 at providing adequate access at this time Dispo: remain in the ICU. remains critically ill off pathway. This patient remains critically ill with one or more organ systems which are or may become a threat to life. I have spent in excess of 37 minutes discontinuously in the care and management of this patient. This time is exclusive of procedures, and includes, but is not limited to, evaluation of the patient, review of the medical record, discussions with family, consultants, nursing staff, or respiratory therapy, and documentation in the medical record. Rakesh Lance MD Jun 24, 2017 09:27
[2017-06-24] MEDS ORDERED: DEXTROSE 50% IN WATER 50 ML VIAL(D50) IV PUSH PRN (09:30)
[2017-06-24] MEDS: PRAVASTATIN SOD 40 MG TAB PO SCH (09:55)
[2017-06-24] MEDS: methylPREDNISolone SOD SUCC 40 MG/1 ML VIAL IV PUSH SCH ×2 (09:56→21:14)
[2017-06-24] MEDS: PANTOPRAZOLE SODIUM 40 MG VIAL IV PUSH SCH (09:56)
[2017-06-24] MEDS: DOCUSATE SODIUM 50 MG/SENNA 8.6 MG TAB PO SCH ×2 (09:56→21:17)
[2017-06-24] MEDS: LISINOPRIL 5 MG TAB PO SCH (09:56)
[2017-06-24] MEDS: NYSTATIN 100,000 U/GM PWD 15 GM BTL TOPICAL SCH ×2 (09:57→21:00)
[2017-06-24] MEDS: CHLORHEXIDINE 0.12% (ORAL KIT) 15 ML CUP MT SCH ×2 (09:57→21:16)
[2017-06-24] MEDS: SODIUM CHLORIDE 0.9% FLUSH 10 ML FLUSH IV FLUSH SCH ×2 (09:57→21:14)
[2017-06-24] MEDS: FUROSEMIDE 40 MG/4 ML VIAL IV PUSH SCH (10:21)
[2017-06-24] MEDS: oxyCODONE HCL ORAL CONC 20 MG/ML SYRINGE PO SCH ×3 (11:32→21:19)
[2017-06-24] MEDS: fentaNYL DRIP 250 ML IV PRN ×2 (11:38→21:16)
[2017-06-24] MEDS: INSULIN NovoLIN REGULAR SUPPLEMENTAL SCALE SQ SCH ×2 (12:14→17:39)
[2017-06-24] MEDS: guanFACINE HCL 1 MG TAB PO SCH ×2 (12:23→21:17)
[2017-06-24] MEDS ORDERED: VANCOMYCIN INJ 2,000 MG in SODIUM CHLORID 0.9% 500 ML INJ 500 ML IV ONE (14:00)
[2017-06-25] VITALS (26 sets, daily range): BP systolic 83–133; BP diastolic 52–94; PULSE 41–89; RESP 16–19; TEMP 98.5–99.9; O2SAT 91–95
[2017-06-25] MEDS: AZTREONAM INJ 2,000 MG in SODIUM CHLORIDE 0.9% INJ 100 ML IV SCH ×3 (00:54→17:10)
[2017-06-25] MEDS: metroNIDAZOLE 500 MG INJ 100 ML IV SCH ×3 (01:07→17:31)
[2017-06-25] MEDS: PROPOFOL 1000 MG/100 ML INJ 100 ML IV PRN ×9 (01:09→21:51)
[2017-06-25] MEDS: oxyCODONE HCL ORAL CONC 20 MG/ML SYRINGE PO SCH ×4 (04:00→21:58)
[2017-06-25] MEDS: CHLORHEXIDINE GLUCONATE 2 % 1 PACK (2 CLOTHS) TOP SCH (04:00)
[2017-06-25] MEDS: DEXMEDETOMIDINE INJ 1,000 MCG in SODIUM CHLOR 0.9% 250 ML INJ 240 ML IV PRN ×3 (05:09→17:33)
[2017-06-25 05:14] LABS: HEMATOCRIT 40.1 % (35.0-46.0); MEAN CELL VOLUME 95.2 FL (80.0-100.0); MEAN CORPUSCULAR HEMOGLOBIN 31.2 PG (27.0-34.0); MEAN CORPUSCULAR HGB CONC 32.8 % (32.0-36.0); PLATELET COUNT 188 TH/MM3 (150-450); RED BLOOD COUNT 4.21 MIL/MM3 (4.00-5.30); RED CELL DISTRIBUTION WIDTH 13.4 % (11.6-17.2); REVIEW FLAG FINAL; WHITE BLOOD COUNT 10.7 TH/MM3 (4.0-11.0)
[2017-06-25 05:41] LABS: BICARBONATE 26.7 MEQ/L (21.0-32.0); POTASSIUM 4.1 MEQ/L (3.5-5.1)
[2017-06-25] MEDS: INSULIN NovoLIN REGULAR SUPPLEMENTAL SCALE SQ SCH ×4 (06:00→17:32)
[2017-06-25] MEDS: fentaNYL DRIP 250 ML IV PRN ×3 (06:37→17:32)
[2017-06-25] MEDS: HEPARIN SODIUM - SQ 10,000 UNITS/ML VIAL SQ SCH ×3 (06:37→21:58)
[2017-06-25] MEDS: LEVOTHYROXINE SODIUM 100 MCG TAB PO SCH (06:43)
[2017-06-25] MEDS: RESP: ALBUTEROL 2.5 MG/IPRATROPIUM 0.5 MG NEB (SCH) NEB ×3 (07:37→20:50)
[2017-06-25] MEDS: NYSTATIN 100,000 U/GM PWD 15 GM BTL TOPICAL SCH ×2 (08:53→20:23)
[2017-06-25] MEDS: CHLORHEXIDINE 0.12% (ORAL KIT) 15 ML CUP MT SCH ×2 (08:54→20:00)
[2017-06-25] MEDS: guanFACINE HCL 1 MG TAB PO SCH ×2 (08:54→20:22)
[2017-06-25] MEDS: DOCUSATE SODIUM 50 MG/SENNA 8.6 MG TAB PO SCH ×2 (08:54→20:22)
[2017-06-25] MEDS: FUROSEMIDE 40 MG/4 ML VIAL IV PUSH SCH (08:54)
[2017-06-25] MEDS: methylPREDNISolone SOD SUCC 40 MG/1 ML VIAL IV PUSH SCH ×2 (08:54→20:22)
[2017-06-25] MEDS: SODIUM CHLORIDE 0.9% FLUSH 10 ML FLUSH IV FLUSH SCH ×2 (08:55→20:21)
[2017-06-25] MEDS: PANTOPRAZOLE SODIUM 40 MG VIAL IV PUSH SCH (08:55)
[2017-06-25] MEDS: PRAVASTATIN SOD 40 MG TAB PO SCH (08:55)
[2017-06-25] MEDS: LISINOPRIL 5 MG TAB PO SCH (08:55)
[2017-06-25] MEDS ORDERED: VANCOMYCIN INJ 2,000 MG in SODIUM CHLORID 0.9% 500 ML INJ 500 ML IV ONE (17:00)
--- NOTE | 2017-06-25 21:10 | HHI.CCPN ---
Subjective Remarks/Hospital Course This is a 56-year-old female that presented to the ED by EMS transport [facility] with complaint of vomiting 3 days generalized weakness and mild confusion. Patient was identified by EMS to have an Accu-Chek of 350. Patient has history of diabetes, hypertension, asthma/COPD , dyslipidemia, RBBB, morbid obesity, and anxiety depression and bipolar disorder. Patient here denies headache chest pain or abdominal pain. Patient denies diarrhea. Patient denies any injury or fall. Patient rates pain 0/10 in intensity. In route to the hospital patient had EKG which showed right bundle branch block pattern which patient has by history, was administered Zofran 4 mg IV for complaint of nausea and vomiting (no witnessed vomiting) , and given a 500 cc bolus of normal saline, the patient then received metoclopramide. Patient does not report any bilious emesis hematemesis coffee- ground emesis melena or hematochezia. The patient was placed on by BIPAP, with slight improvement of ABG. Upon evaluation to the ED, the patient was noted to be having dystonia movement, confusion with bouts of somnolence, possibly due to noted hyponatremia, or and/or metoclopramide, the patient's O2 saturation was noted to be 96% on 12/8 FIO2.40% BiPAP. The patient was given IV Benadryl. Critical care medicine is consulted for management. Subjective: 06/22: At approximately 0100am, the patient became confused, combative, more agitated. Urine drug screen revealed positive for cannabinoids. The patient received Benadryl 25 mg IV and 1 mg of Ativan in divided doses over 2 hours, with resolution. At 0600 a.m., the patient again became agitated's decreasing mentation and confusion ,ABG was drawn showing decreasing oxygen saturation/ PAO2 levels. The patient was emergently intubated 1 attempt uneventfully. 06/23: Afebrile. Yesterday the patient was noted to be in pulmonary edema, given Lasix 40 mg IV last am, diuresed approximately 4 L prior to [facility]. The patient was transferred from [facility] last evening . No acute events overnight .The patient remains intubated, and sedated, when sedation minimized the patient's agitated not following commands. Echo performed revealed right ventricle slight decrease in function with RV mildly dilated, last night. Plan for CT pulmonary angiogram, will f/u results. FiO2 has been weaned down to 50%. ABG pending. 06/24: wbc downtrending. CT pulmonary angiogram overnight negative for PE. agitation is a problem, on precedex, propofol, fentanyl. family not at bedside when I came to evaluate patient. will attempt to contact them. 06/25: delayed note entry. seen and evaluated at ~0700am. agitation persistently a problem. weaning sedation as tolerated. end organs improving. Objective Vital Signs Date Time Temp Pulse Resp B/P (MAP) Pulse Ox O2 Delivery O2 Flow Rate FiO2 06/25/17 18:00 41 06/25/17 16:00 98.9 18 111/54 (73) 95 128/68 (88) 06/25/17 12:30 40 06/22/17 17:05 Ventilator 06/22/17 09:00 Intake and Output 06/25/17 06/25/17 06/26/17 08:00 16:00 00:00 Intake Total 1000 ml 100 ml 1725 ml Output Total 1400 ml 3900 ml Balance -400 ml 100 ml -2175 ml Result Diagram: 06/25/17 0445 06/25/17 0445 Imaging Last Impressions Chest X-Ray 06/24/17 0600 Signed Impressions: Service Date/Time: Saturday, June 24, 2017 04:38 - CONCLUSION: Endotracheal tube and nasogastric tube in good position. Mild basilar opacity similar to June 23. Franck Desai MD CT Angiography 06/23/17 0000 Signed Impressions: Service Date/Time: Friday, June 23, 2017 15:11 - CONCLUSION: 1. Endotracheal tube has its tip in the right mainstem bronchus. This should be pulled back at least 3 cm from more optimal positioning. 2. No large pulmonary emboli identified on the suboptimal CT pulmonary angiogram due to poor cardiac output. 3. Posterior bibasilar atelectasis and/or infiltrates. 4. Enlarged fatty liver. 5. Mild splenomegaly. 6. Cardiomegaly. Preston Montoya MD Head CT 06/21/172121 Signed Impressions: Service Date/Time: Wednesday, June 21, 2017 21:43 - CONCLUSION: No acute disease. Kang Coronado MD Objective Remarks GENERAL: Super morbidly obese female patient intubated sedated with intermittent bouts of confusion/agitation SKIN: Warm and dry. Large pannus with noted malodorous, reddened, excoriated area, with white exudative area noted HEAD: Atraumatic. Normocephalic. EYES: Pupils equal and round. No scleral icterus. No injection or drainage. ENT: No nasal bleeding or discharge. Mucous membranes pink and moist. Mallampati classification IV, small oral aperture noted difficult airway NECK: Trachea midline. Unable to assess JVD secondary to body habitus. CARDIOVASCULAR: Normal rate, regular rhythm. RESPIRATORY: No accessory muscle use. Clear to auscultation, diminished throughout. Breath sounds equal bilaterally. GASTROINTESTINAL: Abdomen soft, obese non-tender, nondistended. No guarding. Skin/wound area as noted above MUSCULOSKELETAL: Extremities without clubbing, cyanosis, or edema. No obvious deformities. NEUROLOGICAL: RASS +1 or -3. No gross focal/sensory deficits. moves all extremities. w/d to pain x 4. does not follow commands. intermittently agitated. Procedures 06/22 intubation Date of Insertion: Jun 21, 2017 Date of Removal: Jun 22, 2017 A/P Assessment and Plan Assessment: This is a super morbidly obese female patient presented with somnolent episodes and intermittent agitation, with hyponatremia,bipolar disorder, with possible polypharmacy. Patient with persistent acute hypoxic and hypercarbic respiratory failure as well as severe agitated delirium. remains critically ill and off pathway. unsafe for SBT today given her agitation. With her history of possible acute dystonia, agitation may be difficult to control. Neurologic: Bipolar disorder Depression Restless leg syndrome Polypharmacy Anxiety disorder Toxic encephalopathy Agitated Delirium Metabolic encephalopathy Cannaboids/ THC Neuro checks per ICU protocol 06/22 Intubated for respiratory decompensation Benadryl 12.5 mg IV push 1 dose for dystonia secondary to metoclopramide 06/21 Patient home medications include Roperinole, Trazodone, Citalopram, Benztropine, Hydroxyzine and Alprazolam will hold for now 06/22 UDS-positive for Cannaboids/THC 06/21 lithium level-0.5 (low normal) oxycodone scheduled for background pain control guanfacine 2mg po q12h for agitated delirium- alpha2 agonist and unlikely to cause dystonia will hold off on dopaminergic agents, atypical antipsychotics for now. Respiratory: COPD Asthma Obesity hypoventilation syndrome Obstructive sleep apnea Acute Hypoxic/hypercapnic respiratory failure Maintain O2 sat greater than 92% 06/22 intubated for respiratory decompensation 7.5 ETT, 23 at the teeth today- will retract 3 cm. [id number] pulmonary edema-Lasix given40 mg IV-diuresised 4 L Duo nebs every 6 hours scheduled every 2 hours when necessary Ventilator bundle not ready for SBT today given agitation. off pathway. Methylprednisolone 40 mg every 12hr 06/21 D Dimer-0.33 06/23-Echo performed on 06/22 showed RV mildly dilated, RA dilation, EF 55-60% 06/23 CT pulmonary angiogram - negative for large PE. Cardiovascular: Hypertension Sinus Bradycardia Lisinopril 5 mg /day 06/21 EKG-right bundle branch block left posterior fascicular block (patient has history of right bundle branch block 06/22 9 ECHO results-RV slightly decreased function, right atrium mildly dilated , trace tricuspid regurg, noted IVC dilation,EF bradycardia likely secondary to sedation. otherwise hemodynamically stable. will tolerate HR > 40. Renal: Maintain Caban -- Strict I/Os FEN/GI: Hyponatremia-resolved Super morbid obesity Chronic Renal insufficiency, unknown stage at baseline Nausea and vomiting Hypercholesterolemia start TF at trickles Na 138 unknown baseline. Cr 1.5 today. monitor closely. Continue simvastatin 06/23: LDL 50, HDL 41, trig 112 Lasix 40mg iv x 1. Heme/ID: Skin wound infection Monitor CBC, WBC count within normal limits Lactate 0.9 Empiric dosing Azactam, metronidazole, and vancomycin-white excoriated creamy malodorous large area involving skinfolds of pannus, and cellulitis? LLE Nystatin powder to pannus area All cultures NGTD. Endocrine: Hypothyroidism Diabetes mellitus TSH significantly elevated 5.4, free T4- 9.7 WNL Continue Synthroid 100 mcgs daily Obtain hemoglobin A1c Glucose monitoring per ICU protocol-medium dose regimen -- SSI Prophylaxis: GI Prophylaxis Protonix 40 mg IV DVT Prophylaxis -- SCDs Heparin 5000u SQ every 8 hours Lines: Peripheral IVs 2 at providing adequate access at this time Dispo: remain in the ICU. remains critically ill off pathway. Rakesh Lance MD Jun 25, 2017 21:09
[2017-06-26] VITALS (17 sets, daily range): BP systolic 111–157; BP diastolic 55–87; PULSE 57–86; RESP 18–23; TEMP 99.9–102.4; O2SAT 92–99
[2017-06-26] MEDS: PROPOFOL 1000 MG/100 ML INJ 100 ML IV PRN ×8 (03:40→20:18)
[2017-06-26] MEDS: metroNIDAZOLE 500 MG INJ 100 ML IV SCH ×3 (03:44→18:23)
[2017-06-26] MEDS: CHLORHEXIDINE GLUCONATE 2 % 1 PACK (2 CLOTHS) TOP SCH (03:44)
[2017-06-26] MEDS: AZTREONAM INJ 2,000 MG in SODIUM CHLORIDE 0.9% INJ 100 ML IV SCH ×3 (03:44→16:04)
[2017-06-26] MEDS: oxyCODONE HCL ORAL CONC 20 MG/ML SYRINGE PO SCH ×4 (05:06→21:02)
[2017-06-26] MEDS: HEPARIN SODIUM - SQ 10,000 UNITS/ML VIAL SQ SCH ×3 (05:06→21:02)
[2017-06-26] MEDS: INSULIN NovoLIN REGULAR SUPPLEMENTAL SCALE SQ SCH ×4 (05:07→18:00)
[2017-06-26] MEDS: fentaNYL DRIP 250 ML IV PRN (05:07)
[2017-06-26] MEDS: LEVOTHYROXINE SODIUM 100 MCG TAB PO SCH (06:14)
[2017-06-26 06:35] LABS: HEMATOCRIT 41.8 % (35.0-46.0); MEAN CELL VOLUME 95.1 FL (80.0-100.0); MEAN CORPUSCULAR HEMOGLOBIN 30.7 PG (27.0-34.0); MEAN CORPUSCULAR HGB CONC 32.3 % (32.0-36.0); PLATELET COUNT 191 TH/MM3 (150-450); RED CELL DISTRIBUTION WIDTH 13.5 % (11.6-17.2); REVIEW FLAG FINAL; WHITE BLOOD COUNT 9.3 TH/MM3 (4.0-11.0)
[2017-06-26 07:03] LABS: BICARBONATE 26.7 MEQ/L (21.0-32.0); POTASSIUM 4.2 MEQ/L (3.5-5.1)
[2017-06-26] MEDS: CHLORHEXIDINE 0.12% (ORAL KIT) 15 ML CUP MT SCH ×2 (08:00→20:20)
[2017-06-26] MEDS: RESP: ALBUTEROL 2.5 MG/IPRATROPIUM 0.5 MG NEB (SCH) NEB ×3 (08:37→20:00)
[2017-06-26] MEDS: SODIUM CHLORIDE 0.9% FLUSH 10 ML FLUSH IV FLUSH SCH ×2 (09:00→20:19)
[2017-06-26] MEDS: methylPREDNISolone SOD SUCC 40 MG/1 ML VIAL IV PUSH SCH ×2 (09:23→20:19)
[2017-06-26] MEDS: LISINOPRIL 5 MG TAB PO SCH (09:23)
[2017-06-26] MEDS: FUROSEMIDE 40 MG/4 ML VIAL IV PUSH SCH (09:23)
[2017-06-26] MEDS: NYSTATIN 100,000 U/GM PWD 15 GM BTL TOPICAL SCH ×2 (09:25→20:21)
[2017-06-26] MEDS: DOCUSATE SODIUM 50 MG/SENNA 8.6 MG TAB PO SCH ×2 (09:26→20:20)
[2017-06-26] MEDS: PANTOPRAZOLE SODIUM 40 MG VIAL IV PUSH SCH (09:32)
[2017-06-26] MEDS: PRAVASTATIN SOD 40 MG TAB PO SCH (10:28)
[2017-06-26] MEDS: DEXMEDETOMIDINE INJ 1,000 MCG in SODIUM CHLOR 0.9% 250 ML INJ 240 ML IV PRN ×2 (12:49→18:24)
[2017-06-26] MEDS: guanFACINE HCL 1 MG TAB PO SCH ×2 (15:00→20:21)
[2017-06-26] MEDS ORDERED: ACETAMINOPHEN 650 MG/20.3 ML UDC NG ONE (15:45)
--- NOTE | 2017-06-26 19:42 | HHI.CCPN ---
Subjective Remarks/Hospital Course This is a 56-year-old female that presented to the ED by EMS transport from a local [facility] with complaint of vomiting 3 days generalized weakness and mild confusion. Patient was identified by EMS to have an Accu-Chek of 350. Patient has history of diabetes, hypertension, asthma/COPD , dyslipidemia, RBBB, morbid obesity, and anxiety depression and bipolar disorder. Patient here denies headache chest pain or abdominal pain. Patient denies diarrhea. Patient denies any injury or fall. Patient rates pain 0/10 in intensity. In route to the hospital patient had EKG which showed right bundle branch block pattern which patient has by history, was administered Zofran 4 mg IV for complaint of nausea and vomiting (no witnessed vomiting) , and given a 500 cc bolus of normal saline, the patient then received metoclopramide. Patient does not report any bilious emesis hematemesis coffee- ground emesis melena or hematochezia. The patient was placed on by BIPAP, with slight improvement of ABG. Upon evaluation to the ED, the patient was noted to be having dystonia movement, confusion with bouts of somnolence, possibly due to noted hyponatremia, or and/or metoclopramide, the patient's O2 saturation was noted to be 96% on 12/8 FIO2.40% BiPAP. The patient was given IV Benadryl. Critical care medicine is consulted for management. Subjective: 06/22: At approximately 0100am, the patient became confused, combative, more agitated. Urine drug screen revealed positive for cannabinoids. The patient received Benadryl 25 mg IV and 1 mg of Ativan in divided doses over 2 hours, with resolution. At 0600 a.m., the patient again became agitated's decreasing mentation and confusion ,ABG was drawn showing decreasing oxygen saturation/ PAO2 levels. The patient was emergently intubated 1 attempt uneventfully. 06/23: Afebrile. Yesterday the patient was noted to be in pulmonary edema, given Lasix 40 mg IV last am, diuresed approximately 4 L [facility]. The patient was transferred from [facility] last evening . No acute events overnight .The patient remains intubated, and sedated, when sedation minimized the patient's agitated not following commands. Echo performed revealed right ventricle slight decrease in function with RV mildly dilated, last night. Plan for CT pulmonary angiogram, will f/u results. FiO2 has been weaned down to 50%. ABG pending. 06/24: wbc downtrending. CT pulmonary angiogram overnight negative for PE. agitation is a problem, on precedex, propofol, fentanyl. family not at bedside when I came to evaluate patient. will attempt to contact them. 06/25: delayed note entry. seen and evaluated at ~0700am. agitation persistently a problem. weaning sedation as tolerated. end organs improving. 06/26: agitation persists. new fever today, though without leukocytosis. cervantes cultured. Objective Vital Signs Date Time Temp Pulse Resp B/P (MAP) Pulse Ox O2 Delivery O2 Flow Rate FiO2 06/26/17 18:00 101.0 64 23 124/79 (94) 96 06/26/17 18:00 45 06/22/17 17:05 Ventilator 06/22/17 09:00 Intake and Output 06/26/17 06/26/17 06/27/17 08:00 16:00 00:00 Intake Total 600 ml 2699 ml Output Total 1900 ml 3300 ml Balance -1300 ml -601 ml Result Diagram: 06/26/17 0530 06/26/17 0530 Imaging Last Impressions Chest X-Ray 06/24/17 0600 Signed Impressions: Service Date/Time: Saturday, June 24, 2017 04:38 - CONCLUSION: Endotracheal tube and nasogastric tube in good position. Mild basilar opacity similar to June 23. Franck Desai MD CT Angiography 06/23/17 0000 Signed Impressions: Service Date/Time: Friday, June 23, 2017 15:11 - CONCLUSION: 1. Endotracheal tube has its tip in the right mainstem bronchus. This should be pulled back at least 3 cm from more optimal positioning. 2. No large pulmonary emboli identified on the suboptimal CT pulmonary angiogram due to poor cardiac output. 3. Posterior bibasilar atelectasis and/or infiltrates. 4. Enlarged fatty liver. 5. Mild splenomegaly. 6. Cardiomegaly. Preston Montoya MD Head CT 06/21/172121 Signed Impressions: Service Date/Time: Wednesday, June 21, 2017 21:43 - CONCLUSION: No acute disease. Kang Coronado MD Objective Remarks GENERAL: Super morbidly obese female patient intubated sedated with intermittent bouts of confusion/agitation SKIN: Warm and dry. Large pannus with noted malodorous, reddened, excoriated area, with white exudative area noted HEAD: Atraumatic. Normocephalic. EYES: Pupils equal and round. No scleral icterus. No injection or drainage. ENT: No nasal bleeding or discharge. Mucous membranes pink and moist. Mallampati classification IV, small oral aperture noted difficult airway NECK: Trachea midline. Unable to assess JVD secondary to body habitus. CARDIOVASCULAR: Normal rate, regular rhythm. RESPIRATORY: No accessory muscle use. Clear to auscultation, diminished throughout. Breath sounds equal bilaterally. GASTROINTESTINAL: Abdomen soft, obese non-tender, nondistended. No guarding. Skin/wound area as noted above MUSCULOSKELETAL: Extremities without clubbing, cyanosis, or edema. No obvious deformities. NEUROLOGICAL: RASS +1 or -3. No gross focal/sensory deficits. moves all extremities. w/d to pain x 4. does not follow commands. intermittently agitated. Procedures 06/22 intubation Date of Insertion: Jun 21, 2017 Date of Removal: Jun 22, 2017 A/P Assessment and Plan Assessment: This is a super morbidly obese female patient presented with somnolent episodes and intermittent agitation, with hyponatremia,bipolar disorder, with possible polypharmacy. Patient with persistent acute hypoxic and hypercarbic respiratory failure as well as severe agitated delirium. remains critically ill and off pathway. unsafe for SBT today given her agitation. With her history of possible acute dystonia, agitation may be difficult to control. will culture for the fever and await results. no lines to replace. Neurologic: Bipolar disorder Depression Restless leg syndrome Polypharmacy Anxiety disorder Toxic encephalopathy Agitated Delirium Metabolic encephalopathy Cannaboids/ THC Neuro checks per ICU protocol 06/22 Intubated for respiratory decompensation Benadryl 12.5 mg IV push 1 dose for dystonia secondary to metoclopramide 06/21 Patient home medications include Roperinole, Trazodone, Citalopram, Benztropine, Hydroxyzine and Alprazolam will hold for now 06/22 UDS-positive for Cannaboids/THC 06/21 lithium level-0.5 (low normal) oxycodone scheduled for background pain control guanfacine 2mg po q12h for agitated delirium- alpha2 agonist and unlikely to cause dystonia will hold off on dopaminergic agents, atypical antipsychotics for now. Respiratory: COPD Asthma Obesity hypoventilation syndrome Obstructive sleep apnea Acute Hypoxic/hypercapnic respiratory failure Maintain O2 sat greater than 92% 06/22 intubated for respiratory decompensation 7.5 ETT, 23 at the teeth today- will retract 3 cm. [id number] pulmonary edema-Lasix given40 mg IV-diuresised 4 L Duo nebs every 6 hours scheduled every 2 hours when necessary Ventilator bundle not ready for SBT today given agitation. off pathway. Methylprednisolone 40 mg every 12hr 06/21 D Dimer-0.33 06/23-Echo performed on 06/22 showed RV mildly dilated, RA dilation, EF 55-60% 06/23 CT pulmonary angiogram - negative for large PE. Cardiovascular: Hypertension Sinus Bradycardia Lisinopril 5 mg /day 06/21 EKG-right bundle branch block left posterior fascicular block (patient has history of right bundle branch block 06/22 9 ECHO results-RV slightly decreased function, right atrium mildly dilated , trace tricuspid regurg, noted IVC dilation,EF bradycardia likely secondary to sedation. otherwise hemodynamically stable. will tolerate HR > 40. Renal: Maintain Caban -- Strict I/Os FEN/GI: Hyponatremia-resolved Super morbid obesity Chronic Renal insufficiency, unknown stage at baseline Nausea and vomiting Hypercholesterolemia start TF at trickles Na 138 unknown baseline. Cr 1.5 today. monitor closely. Continue simvastatin 06/23: LDL 50, HDL 41, trig 112 Lasix 40mg iv x 1. Heme/ID: Skin wound infection Monitor CBC, WBC count within normal limits Lactate 0.9 Empiric dosing Azactam, metronidazole, and vancomycin-white excoriated creamy malodorous large area involving skinfolds of pannus, and cellulitis? LLE Nystatin powder to pannus area All cultures NGTD. Endocrine: Hypothyroidism Diabetes mellitus TSH significantly elevated 5.4, free T4- 9.7 WNL Continue Synthroid 100 mcgs daily Obtain hemoglobin A1c Glucose monitoring per ICU protocol-medium dose regimen -- SSI Prophylaxis: GI Prophylaxis Protonix 40 mg IV DVT Prophylaxis -- SCDs Heparin 5000u SQ every 8 hours Lines: Peripheral IVs 2 at providing adequate access at this time Dispo: remain in the ICU. remains critically ill off pathway. Rakesh Lance MD Jun 26, 2017 19:42
[2017-06-27] VITALS (19 sets, daily range): BP systolic 69–166; BP diastolic 52–92; PULSE 85–117; RESP 18–23; TEMP 97.4–102.9; O2SAT 92–97
[2017-06-27] MEDS: AZTREONAM INJ 2,000 MG in SODIUM CHLORIDE 0.9% INJ 100 ML IV SCH ×4 (00:49→23:47)
[2017-06-27] MEDS: PROPOFOL 1000 MG/100 ML INJ 100 ML IV PRN ×6 (00:59→22:43)
[2017-06-27] MEDS: metroNIDAZOLE 500 MG INJ 100 ML IV SCH ×3 (01:00→17:22)
[2017-06-27] MEDS: CHLORHEXIDINE GLUCONATE 2 % 1 PACK (2 CLOTHS) TOP SCH (04:00)
[2017-06-27 04:23] LABS: HEMATOCRIT 48.6 % (35.0-46.0); MEAN CELL VOLUME 95.4 FL (80.0-100.0); MEAN CORPUSCULAR HEMOGLOBIN 30.8 PG (27.0-34.0); MEAN CORPUSCULAR HGB CONC 32.3 % (32.0-36.0); PLATELET COUNT 226 TH/MM3 (150-450); RED BLOOD COUNT 5.09 MIL/MM3 (4.00-5.30); RED CELL DISTRIBUTION WIDTH 13.9 % (11.6-17.2); REVIEW FLAG FINAL; WHITE BLOOD COUNT 10.1 TH/MM3 (4.0-11.0)
[2017-06-27] MEDS: ACETAMINOPHEN 325 MG TAB PO PRN ×3 (04:43→23:48)
[2017-06-27] MEDS: oxyCODONE HCL ORAL CONC 20 MG/ML SYRINGE PO SCH ×4 (04:43→22:42)
[2017-06-27 05:04] LABS: BICARBONATE 25.1 MEQ/L (21.0-32.0); POTASSIUM 4.4 MEQ/L (3.5-5.1)
[2017-06-27] MEDS: INSULIN NovoLIN REGULAR SUPPLEMENTAL SCALE SQ SCH ×2 (06:00)
[2017-06-27] MEDS: LEVOTHYROXINE SODIUM 100 MCG TAB PO SCH (06:12)
[2017-06-27] MEDS: HEPARIN SODIUM - SQ 10,000 UNITS/ML VIAL SQ SCH ×3 (06:12→22:42)
[2017-06-27] MEDS: DEXMEDETOMIDINE INJ 1,000 MCG in SODIUM CHLOR 0.9% 250 ML INJ 240 ML IV PRN ×4 (06:56→23:48)
[2017-06-27] MEDS: RESP: ALBUTEROL 2.5 MG/IPRATROPIUM 0.5 MG NEB (SCH) NEB ×3 (07:54→19:50)
[2017-06-27] MEDS: CHLORHEXIDINE 0.12% (ORAL KIT) 15 ML CUP MT SCH ×2 (08:52→19:31)
[2017-06-27] MEDS: SODIUM CHLORIDE 0.9% FLUSH 10 ML FLUSH IV FLUSH SCH ×2 (08:53→19:31)
[2017-06-27] MEDS: SODIUM CHLORIDE 0.9% FLUSH 10 ML FLUSH IV FLUSH PRN (08:54)
[2017-06-27] MEDS: methylPREDNISolone SOD SUCC 40 MG/1 ML VIAL IV PUSH SCH ×2 (08:54→19:31)
[2017-06-27] MEDS: PANTOPRAZOLE SODIUM 40 MG VIAL IV PUSH SCH (08:54)
[2017-06-27] MEDS: LISINOPRIL 5 MG TAB PO SCH (08:54)
[2017-06-27] MEDS: PRAVASTATIN SOD 40 MG TAB PO SCH (08:54)
[2017-06-27] MEDS: DOCUSATE SODIUM 50 MG/SENNA 8.6 MG TAB PO SCH ×2 (08:54→19:31)
[2017-06-27] MEDS: FUROSEMIDE 40 MG/4 ML VIAL IV PUSH SCH (08:54)
[2017-06-27] MEDS: NYSTATIN 100,000 U/GM PWD 15 GM BTL TOPICAL SCH ×2 (08:55→19:32)
[2017-06-27] MEDS: guanFACINE HCL 1 MG TAB PO SCH ×2 (08:55→19:32)
[2017-06-27 10:52] LABS: BLOOD GAS BASE EXCESS -3.1 mmol/L (-2-2); BLOOD GAS CARBOXYHEMOGLOBIN 1.1 % (0-4); BLOOD GAS HCO3 22 mmol/L (22-26); BLOOD GAS METHEMOGLOBIN 1.4 % (0-2); BLOOD GAS O2 HGB SATURATION 88 % (90-100); BLOOD GAS OXYGEN CONTENT 20.6 Vol % (12.0-20.0); BLOOD GAS PCO2 42 mmHg (38-42); BLOOD GAS PO2 65 mmHg (61-120); BLOOD GAS TOTAL HGB 16.7 G/DL (12.0-16.0); CRITICAL VALUE YES; OXYGEN DEVICE VENTILATOR; TEMP CORR TO 98.6
[2017-06-27 10:53] LABS: DRAW SITE ART LINE; FIO2 65 %; STAT NO
[2017-06-27] MEDS ORDERED: MISC INFORMATION OTHER ONE (12:00)
[2017-06-27] MEDS ORDERED: DEXTROSE 50% IN WATER 50 ML VIAL(D50) IV PUSH PRN (12:00)
[2017-06-27] MEDS ORDERED: ALBUMIN HUMAN 5% 25 GM/500 ML BOTTLE IV ONE ×3 (12:30→17:45)
[2017-06-27] MEDS: INSULIN REGULAR (IV INFUSION) 100 UNITS in SODIUM CHLORIDE 0.9% INJ 99 ML IV SCH ×4 (12:58→22:44)
[2017-06-27] MEDS ORDERED: LACTATED RINGER'S 1000 ML INJ 1,000 ML IV SCH (13:00)
[2017-06-27] MEDS ORDERED: VANCOMYCIN INJ 2,000 MG in SODIUM CHLORID 0.9% 500 ML INJ 500 ML IV ONE (14:00)
[2017-06-27 14:19] LABS: TOTAL BILIRUBIN ADULT 0.3 MG/DL (0.2-1.0)
[2017-06-27 14:20] LABS: INDIRECT BILIRUBIN 0.2 MG/DL (0.0-0.8)
--- NOTE | 2017-06-27 15:02 | HHI.CCPN ---
Subjective Remarks/Hospital Course This is a 56-year-old female that presented to the ED by EMS transport from a local [facility] with complaint of vomiting 3 days generalized weakness and mild confusion. Patient was identified by EMS to have an Accu-Chek of 350. Patient has history of diabetes, hypertension, asthma/COPD , dyslipidemia, RBBB, morbid obesity, and anxiety depression and bipolar disorder. Patient here denies headache chest pain or abdominal pain. Patient denies diarrhea. Patient denies any injury or fall. Patient rates pain 0/10 in intensity. In route to the hospital patient had EKG which showed right bundle branch block pattern which patient has by history, was administered Zofran 4 mg IV for complaint of nausea and vomiting (no witnessed vomiting) , and given a 500 cc bolus of normal saline, the patient then received metoclopramide. Patient does not report any bilious emesis hematemesis coffee- ground emesis melena or hematochezia. The patient was placed on by BIPAP, with slight improvement of ABG. Upon evaluation to the ED, the patient was noted to be having dystonia movement, confusion with bouts of somnolence, possibly due to noted hyponatremia, or and/or metoclopramide, the patient's O2 saturation was noted to be 96% on 12/8 FIO2.40% BiPAP. The patient was given IV Benadryl. Critical care medicine is consulted for management. Subjective: 06/22: At approximately 0100am, the patient became confused, combative, more agitated. Urine drug screen revealed positive for cannabinoids. The patient received Benadryl 25 mg IV and 1 mg of Ativan in divided doses over 2 hours, with resolution. At 0600 a.m., the patient again became agitated's decreasing mentation and confusion ,ABG was drawn showing decreasing oxygen saturation/ PAO2 levels. The patient was emergently intubated 1 attempt uneventfully. 06/23: Afebrile. Yesterday the patient was noted to be in pulmonary edema, given Lasix 40 mg IV last am, diuresed approximately 4 L prior to transfer to [facility]. The patient was transferred from [facility] last evening . No acute events overnight .The patient remains intubated, and sedated, when sedation minimized the patient's agitated not following commands. Echo performed revealed right ventricle slight decrease in function with RV mildly dilated, last night. Plan for CT pulmonary angiogram, will f/u results. FiO2 has been weaned down to 50%. ABG pending. 06/24: wbc downtrending. CT pulmonary angiogram overnight negative for PE. agitation is a problem, on precedex, propofol, fentanyl. family not at bedside when I came to evaluate patient. will attempt to contact them. 06/25: delayed note entry. seen and evaluated at ~0700am. agitation persistently a problem. weaning sedation as tolerated. end organs improving. 06/26: agitation persists. new fever today, though without leukocytosis. cervantes cultured. 06/27: glycemic control much worse today. fevers persist, however wbc only slightly increased to 10 from 9 yesterday. cultures NGTD. agitation somewhat improved. Objective Vital Signs Date Time Temp Pulse Resp B/P (MAP) Pulse Ox O2 Delivery O2 Flow Rate FiO2 06/27/17 14:00 114 06/27/17 13:40 102.1 22 91/58 (69) 94 69/57 (61) 06/27/17 12:00 65 Intake and Output 06/27/17 06/27/17 06/28/17 08:00 16:00 00:00 Intake Total 450 ml 1029 ml Output Total 2100 ml Balance -1650 ml 1029 ml Result Diagram: 06/27/17 0350 06/27/17 0350 Other Results Laboratory Tests Test 06/27/17 10:45 Blood Gas Puncture Site ART LINE Blood Gas Patient Temperature 98.6 Blood Gas HCO3 22 mmol/L (22-26) Blood Gas Base Excess -3.1 mmol/L (-2-2) Blood Gas Oxygen Saturation 88 % (90-100) Arterial Blood pH 7.34 (7.380-7.420) Arterial Blood Partial Pressure CO2 42 mmHg (38-42) Arterial Blood Partial Pressure O2 65 mmHg (61-120) Arterial Blood Oxygen Content 20.6 Vol % (12.0-20.0) Arterial Blood Carboxyhemoglobin 1.1 % (0-4) Arterial Blood Methemoglobin 1.4 % (0-2) Blood Gas Hemoglobin 16.7 G/DL (12.0-16.0) Oxygen Delivery Device VENTILATOR Blood Gas Ventilator Setting A/C 500/18/10PEEP Blood Gas Inspired Oxygen 65 % Imaging Last Impressions Chest X-Ray 06/24/17 0600 Signed Impressions: Service Date/Time: Saturday, June 24, 2017 04:38 - CONCLUSION: Endotracheal tube and nasogastric tube in good position. Mild basilar opacity similar to June 23. Franck Desai MD CT Angiography 06/23/17 0000 Signed Impressions: Service Date/Time: Friday, June 23, 2017 15:11 - CONCLUSION: 1. Endotracheal tube has its tip in the right mainstem bronchus. This should be pulled back at least 3 cm from more optimal positioning. 2. No large pulmonary emboli identified on the suboptimal CT pulmonary angiogram due to poor cardiac output. 3. Posterior bibasilar atelectasis and/or infiltrates. 4. Enlarged fatty liver. 5. Mild splenomegaly. 6. Cardiomegaly. Preston Montoya MD Head CT 06/21/172121 Signed Impressions: Service Date/Time: Wednesday, June 21, 2017 21:43 - CONCLUSION: No acute disease. Kang Coronado MD Objective Remarks GENERAL: Super morbidly obese female patient intubated sedated with intermittent bouts of confusion/agitation SKIN: Warm and dry. Large pannus with noted malodorous, reddened, excoriated area, with white exudative area noted HEAD: Atraumatic. Normocephalic. EYES: Pupils equal and round. No scleral icterus. No injection or drainage. ENT: No nasal bleeding or discharge. Mucous membranes pink and moist. NECK: Trachea midline. Unable to assess JVD secondary to body habitus. CARDIOVASCULAR: Normal rate, regular rhythm. RESPIRATORY: No accessory muscle use. Clear to auscultation, diminished throughout. Breath sounds equal bilaterally. GASTROINTESTINAL: Abdomen soft, obese non-tender, nondistended. No guarding. Skin/wound area as noted above MUSCULOSKELETAL: Extremities without clubbing, cyanosis, or edema. No obvious deformities. NEUROLOGICAL: RASS -2, No gross focal/sensory deficits. moves all extremities. w/d to pain x 4. does not follow commands. intermittently agitated. Procedures 06/22 intubation Date of Insertion: Jun 21, 2017 Date of Removal: Jun 22, 2017 A/P Assessment and Plan Assessment: This is a super morbidly obese female patient presented with somnolent episodes and intermittent agitation, with hyponatremia,bipolar disorder, with possible polypharmacy. Patient with persistent acute hypoxic and hypercarbic respiratory failure as well as severe agitated delirium. remains critically ill and off pathway. Certainly with history of significant antipsychotic use, NMS could be in the differential, but not rigid, and has been off these agents for days now. will ask psych to eval to help with agitation as well as investigate NMS/Seratonin syndrome. will check CK levels. Will also send procalcitonin to help us differentiate bacterial infection vs. non-infectious causes of fever. remains very critically ill today without meaningful improvements. Neurologic: Bipolar disorder Depression Restless leg syndrome Polypharmacy Anxiety disorder Toxic encephalopathy Agitated Delirium Metabolic encephalopathy Cannaboids/ THC Neuro checks per ICU protocol 06/22 Intubated for respiratory decompensation Benadryl 12.5 mg IV push 1 dose for dystonia secondary to metoclopramide 06/21 Patient home medications include Roperinole, Trazodone, Citalopram, Benztropine, Hydroxyzine and Alprazolam will hold for now 06/22 UDS-positive for Cannaboids/THC 06/21 lithium level-0.5 (low normal) oxycodone scheduled for background pain control guanfacine 2mg po q12h for agitated delirium- alpha2 agonist and unlikely to cause dystonia will hold off on dopaminergic agents, atypical antipsychotics for now. Respiratory: COPD Asthma Obesity hypoventilation syndrome Obstructive sleep apnea Acute Hypoxic/hypercapnic respiratory failure Maintain O2 sat greater than 92% 06/22 intubated for respiratory decompensation 7.5 ETT Duo nebs every 6 hours scheduled every 2 hours when necessary Ventilator bundle not ready for SBT today given agitation. off pathway. Methylprednisolone 40 mg every 12hr 06/21 D Dimer-0.33 06/23-Echo performed on 06/22 showed RV mildly dilated, RA dilation, EF 55-60% 06/23 CT pulmonary angiogram - negative for large PE. Cardiovascular: Hypertension Sinus Bradycardia Lisinopril 5 mg /day 06/21 EKG-right bundle branch block left posterior fascicular block (patient has history of right bundle branch block 06/22 9 ECHO results-RV slightly decreased function, right atrium mildly dilated , trace tricuspid regurg, noted IVC dilation,EF bradycardia likely secondary to sedation. otherwise hemodynamically stable. will tolerate HR > 40. Renal: Maintain Caban -- Strict I/Os FEN/GI: Hyponatremia-resolved Super morbid obesity Chronic Renal insufficiency, unknown stage at baseline Nausea and vomiting Hypercholesterolemia TF at goal. Na 138 Cr slightly uptrending, possibly over-diuresed. will start low-dose MIVF and hold lasix today. Continue simvastatin 06/23: LDL 50, HDL 41, trig 112 Heme/ID: Skin wound infection Fevers Monitor CBC, WBC count within normal limits Lactate 0.9 Empiric dosing Azactam, metronidazole, and vancomycin-white excoriated creamy malodorous large area involving skinfolds of pannus, and cellulitis? LLE Nystatin powder to pannus area All cultures NGTD. send procalcitonin level check LFTs/Lipase consult ID to assist in evaluating source of Fever. Endocrine: Hypothyroidism Diabetes mellitus TSH significantly elevated 5.4, free T4- 9.7 WNL Continue Synthroid 100 mcgs daily Obtain hemoglobin A1c Glucose monitoring per ICU protocol-medium dose regimen -- SSI Prophylaxis: GI Prophylaxis Protonix 40 mg IV DVT Prophylaxis -- SCDs Heparin 5000u SQ every 8 hours Lines: Peripheral IVs 2 at providing adequate access at this time Dispo: remain in the ICU. remains critically ill off pathway. Rakesh Lance MD Jun 27, 2017 15:02
[2017-06-27] MEDS ORDERED: MICAFUNGIN INJ 150 MG in SODIUM CHLORIDE 0.9% INJ 100 ML IV SCH (20:00)
[2017-06-27 20:45] LABS: BICARBONATE 21.3 MEQ/L (21.0-32.0); CALCIUM-PROTEIN CORRECTED 7.5 MG/DL (8.5-10.1); POTASSIUM 3.6 MEQ/L (3.5-5.1); TOTAL BILIRUBIN ADULT 0.3 MG/DL (0.2-1.0)
[2017-06-27 21:09] LABS: CKMB 1.5 NG/ML (0.5-3.6)
[2017-06-27] MEDS: fentaNYL DRIP 250 ML IV PRN (22:43)
[2017-06-28] VITALS (13 sets, daily range): BP systolic 52–104; BP diastolic 42–52; PULSE 115–138; RESP 22–24; TEMP 99.9–104.2; O2SAT 91–97
[2017-06-28] MEDS: metroNIDAZOLE 500 MG INJ 100 ML IV SCH ×2 (01:09→11:28)
[2017-06-28] MEDS: INSULIN REGULAR (IV INFUSION) 100 UNITS in SODIUM CHLORIDE 0.9% INJ 99 ML IV SCH ×2 (01:10→05:54)
[2017-06-28] MEDS: CHLORHEXIDINE GLUCONATE 2 % 1 PACK (2 CLOTHS) TOP SCH (04:00)
[2017-06-28] MEDS: oxyCODONE HCL ORAL CONC 20 MG/ML SYRINGE PO SCH ×3 (04:00→10:00)
[2017-06-28] MEDS ORDERED: SODIUM CHLORID 0.9% 500 ML INJ 500 ML IV SCH (04:15)
[2017-06-28] MEDS: HEPARIN SODIUM - SQ 10,000 UNITS/ML VIAL SQ SCH (04:30)
[2017-06-28] MEDS ORDERED: PHENYLEPHRINE HCL 10 MG/ML VIAL ONE ×3 (04:32→04:46)
[2017-06-28] MEDS ORDERED: TERBUTALINE INJ 1 MG/ML AMP SQ PRN (05:00)
[2017-06-28 05:02] LABS: BLOOD GAS CARBOXYHEMOGLOBIN 0.9 % (0-4); BLOOD GAS HCO3 17 mmol/L (22-26); BLOOD GAS METHEMOGLOBIN 1.5 % (0-2); BLOOD GAS O2 HGB SATURATION 90 % (90-100); BLOOD GAS OXYGEN CONTENT 20.5 Vol % (12.0-20.0); BLOOD GAS PCO2 44 mmHg (38-42); BLOOD GAS PO2 70 mmHg (61-120); BLOOD GAS TOTAL HGB 16.2 G/DL (12.0-16.0); TEMP CORR TO 98.6
[2017-06-28] MEDS ORDERED: SODIUM BICARBONATE 8.4% INJ 50 MEQ/50 ML SYR ONE ×2 (05:02)
[2017-06-28 05:03] LABS: CRITICAL VALUE YES; OXYGEN DEVICE VENT
[2017-06-28 05:04] LABS: DRAW SITE ART LINE; FIO2 65 %; STAT YES; ULNAR PULSE PRESENT; VENT SETTINGS SEE COMMENTS
[2017-06-28 05:24] LABS: HEMATOCRIT 48.1 % (35.0-46.0); MEAN CELL VOLUME 97.8 FL (80.0-100.0); MEAN CORPUSCULAR HEMOGLOBIN 30.2 PG (27.0-34.0); MEAN CORPUSCULAR HGB CONC 30.9 % (32.0-36.0); PLATELET COUNT 216 TH/MM3 (150-450); RED BLOOD COUNT 4.92 MIL/MM3 (4.00-5.30); RED CELL DISTRIBUTION WIDTH 14.6 % (11.6-17.2); WHITE BLOOD COUNT 23.7 TH/MM3 (4.0-11.0)
--- NOTE | 2017-06-28 05:34 | PD.PROCEDR ---
Central Line Procedure REASON FOR PROCEDURE Central venous access PROCEDURE PERFORMED Central line placement: US guided LIJ central line CONSENT Emergency procedure due to shock. Unable to contact family ANESTHESIA Local injection of 1% Lidocaine DESCRIPTION OF THE PROCEDURE The patient was placed in supine, mild Trendelenburg position. The area was exposed and cleansed with ChloraPrep, times two. Large sterile drape was used to cover the patient, with the site exposed, under sterile conditions including cap, face mask, sterile gown, and sterile gloves. On single attempt, the introducer needle was inserted with negative pressure in syringe and venous flash was obtained. The guide wire was then advanced without any restriction and the needle was removed. The dilator was used without any complications. Using Seldinger technique the 20 CM 7F triple lumen catheter was advanced over the guide wire to a depth of 19 centimeters. The guide wire was removed. All ports were aspirated with dark venous blood return and flushed easily with sterile saline. All ports were capped. Antibiotic disc was placed around central line at puncture site. The central line was secured to the skin with two interrupted 2.0 silk sutures. The area was bandaged with sterile see- through central line bandage. RADIOLOGICAL DATA Ultrasound guidance was used to locate LIJ COMPLICATIONS: No apparent complications ESTIMATED BLOOD LOSS: Less than 1 cc. Vincenzo Box MD Jun 28, 2017 05:34
[2017-06-28] MEDS ORDERED: SODIUM BICARBONATE 8.4% INJ 75 MEQ in SODIUM CHLOR 0.45% 1000 ML INJ 1,000 ML IV SCH (05:45)
[2017-06-28 05:53] LABS: AUTOMATED NEUTROPHIL # 19.7 TH/MM3 (1.8-7.7); BASOPHIL % 0.4 % (0.0-2.0); LYMPH % 12.4 % (9.0-44.0); LYMPHOCYTE # 3.1 TH/MM3 (1.0-4.8); MONO % 7.9 % (0.0-8.0); NEUT % 79.3 % (16.0-70.0)
[2017-06-28 05:54] LABS: BASOPHIL # 0.1 TH/MM3 (0-0.2)
--- NOTE | 2017-06-28 06:02 | RADRPT ---
EXAM DATE/TIME: 06/28/2017 05:37 [facility] COMPARISON: No previous studies available for comparison. INDICATIONS : Patient vomited. MEDICAL HISTORY : Chronic obstructive pulmonary disease. Hypertension Asthma SURGICAL HISTORY : None. ENCOUNTER: Subsequent ACUITY: 1 day PAIN SCORE: Non-responsive. LOCATION: Bilateral Abdomen FINDINGS: Supine view of the abdomen was performed. Extremely limited anatomic detail due to patient's body hab itus.. CONCLUSION: Extremely limited exam due to patient's body habitus. Anatomic detail is very difficult to delin eate. Dami Cm MD on June 28, 2017 at 6:00 Board Certified Radiologist. This report was verified electronically.
--- NOTE | 2017-06-28 06:04 | RADRPT ---
EXAM DATE/TIME: 06/28/2017 05:48 [facility] COMPARISON: CHEST SINGLE AP, June 24, 2017, 4:38. INDICATIONS : Central line placement. MEDICAL HISTORY : Chronic obstructive pulmonary disease. Hypertension Asthma SURGICAL HISTORY : None. ENCOUNTER: Subsequent ACUITY: 1 week PAIN SCORE: Non-responsive. LOCATION: Bilateral chest FINDINGS: A single view of the chest demonstrates improving aeration in the left base. Minimal atelectatic kenney ges in the right base. Endotracheal tube has been pulled back significantly with the tip in the mid c ervical esophagus. Left IJ central venous catheter is identified with tip projecting over the central venous system. No pneumothorax. Heart size is normal. Osseous structures are intact. CONCLUSION: 1. Interval placement of a left IJ central venous catheter with the tip projecting over the central v enous system. No pneumothorax 2. Endotracheal tube has been significantly pulled back with the tip now in the cervical esophagus. T his should probably be advanced 5-8 cm. 3. Improving aeration in the left base. Minimal atelectatic changes in the right base. Dami Cm MD on June 28, 2017 at 6:01 Board Certified Radiologist. This report was verified electronically.
[2017-06-28] MEDS: PHENYLEPHRINE INJ 40 MG in DEXTROSE 5% IN WATE 500 ML INJ 496 ML IV PRN ×4 (06:29→12:23)
[2017-06-28 06:32] LABS: BETA-HYDROXYBUTYRATE 0.18 MMOL/L (0.00-0.39); BICARBONATE 15.8 MEQ/L (21.0-32.0); TOTAL BILIRUBIN ADULT 0.3 MG/DL (0.2-1.0)
[2017-06-28 06:40] LABS: CALCIUM-PROTEIN CORRECTED 6.5 MG/DL (8.5-10.1); POTASSIUM 2.9 MEQ/L (3.5-5.1)
[2017-06-28] MEDS ORDERED: MICAFUNGIN INJ 100 MG in SODIUM CHLORIDE 0.9% INJ 100 ML IV SCH (07:00)
[2017-06-28 07:22] LABS: BLOOD GAS CARBOXYHEMOGLOBIN 0.9 % (0-4); BLOOD GAS HCO3 18 mmol/L (22-26); BLOOD GAS METHEMOGLOBIN 1.6 % (0-2); BLOOD GAS O2 HGB SATURATION 87 % (90-100); BLOOD GAS OXYGEN CONTENT 18.7 Vol % (12.0-20.0); BLOOD GAS PCO2 46 mmHg (38-42); BLOOD GAS PO2 61 mmHg (61-120); BLOOD GAS TOTAL HGB 15.3 G/DL (12.0-16.0); CRITICAL VALUE YES; OXYGEN DEVICE VENTILATOR; TEMP CORR TO 98.6; VENT SETTINGS A/C 550/18/8PEEP
[2017-06-28 07:23] LABS: DRAW SITE RT RADIAL; FIO2 65 %; NUMBER OF ARTERIAL PUNCTURES 1; STAT YES; ULNAR PULSE PRESENT
[2017-06-28 07:29] LABS: BANDS 6 % (0-6); MYELOCYTES 1 % (0-0); NEUTROPHIL # MANUAL DIFF 19.4 TH/MM3 (1.8-7.7); PLATELET ESTIMATE SMEAR NORMAL (NORMAL); PLATELET MORPHOLOGY NORMAL (NORMAL); POLYS (SEG NEUTROPHILS) 75 % (16-70); SCAN/DIFF FINAL DIFF MANUAL; WBC DIFF SAMPLE 100
[2017-06-28] MEDS: RESP: ALBUTEROL 2.5 MG/IPRATROPIUM 0.5 MG NEB (SCH) NEB ×2 (08:00→12:26)
[2017-06-28] MEDS ORDERED: VASOPRESSIN INJ 40 UNITS in DEXTROSE 5% IN WATER 100ML INJ 98 ML IV SCH ×2 (08:06)
--- NOTE | 2017-06-28 08:33 | HHI.CCPN ---
Subjective Remarks/Hospital Course This is a 56-year-old female that presented to the ED by EMS transport from a local [facility] with complaint of vomiting 3 days generalized weakness and mild confusion. Patient was identified by EMS to have an Accu-Chek of 350. Patient has history of diabetes, hypertension, asthma/COPD , dyslipidemia, RBBB, morbid obesity, and anxiety depression and bipolar disorder. Patient here denies headache chest pain or abdominal pain. Patient denies diarrhea. Patient denies any injury or fall. Patient rates pain 0/10 in intensity. In route to the hospital patient had EKG which showed right bundle branch block pattern which patient has by history, was administered Zofran 4 mg IV for complaint of nausea and vomiting (no witnessed vomiting) , and given a 500 cc bolus of normal saline, the patient then received metoclopramide. Patient does not report any bilious emesis hematemesis coffee- ground emesis melena or hematochezia. The patient was placed on by BIPAP, with slight improvement of ABG. Upon evaluation to the ED, the patient was noted to be having dystonia movement, confusion with bouts of somnolence, possibly due to noted hyponatremia, or and/or metoclopramide, the patient's O2 saturation was noted to be 96% on 12/8 FIO2.40% BiPAP. The patient was given IV Benadryl. Critical care medicine is consulted for management. Subjective: 06/22: At approximately 0100am, the patient became confused, combative, more agitated. Urine drug screen revealed positive for cannabinoids. The patient received Benadryl 25 mg IV and 1 mg of Ativan in divided doses over 2 hours, with resolution. At 0600 a.m., the patient again became agitated's decreasing mentation and confusion ,ABG was drawn showing decreasing oxygen saturation/ PAO2 levels. The patient was emergently intubated 1 attempt uneventfully. 06/23: Afebrile. Yesterday the patient was noted to be in pulmonary edema, given Lasix 40 mg IV last am, diuresed approximately 4 L prior to transfer to [facility]. The patient was transferred from [facility] last evening . No acute events overnight .The patient remains intubated, and sedated, when sedation minimized the patient's agitated not following commands. Echo performed revealed right ventricle slight decrease in function with RV mildly dilated, last night. Plan for CT pulmonary angiogram, will f/u results. FiO2 has been weaned down to 50%. ABG pending. 06/24: wbc downtrending. CT pulmonary angiogram overnight negative for PE. agitation is a problem, on precedex, propofol, fentanyl. family not at bedside when I came to evaluate patient. will attempt to contact them. 06/25: delayed note entry. seen and evaluated at ~0700am. agitation persistently a problem. weaning sedation as tolerated. end organs improving. 06/26: agitation persists. new fever today, though without leukocytosis. cervantes cultured. 06/27: glycemic control much worse today. fevers persist, however wbc only slightly increased to 10 from 9 yesterday. cultures NGTD. agitation somewhat improved. 06/28: At approximately 4 AM, the patient was noted to have a precipitous decrease in blood pressure, all sedatives discontinued Precedex and fentanyl. The patient was bolused with 2 L of crystalloid , Labs were obtained, patient was noted to be acidotic sodium bicarbonate infusion initiated. Lactate level was noted to be 4.75. Concurrently the patient was noted to have increased NG output coffee-ground emesis approximately 300 cc by 6 AM. Stat KUB was obtained unfortunately unable to delineate any anatomical structures due to body habitus. ID was consulted. Stat CT also was ordered, upon presenting for CT and scanner the patient became severely hypotensive while on phenylephrine infusion and became asystolic. CPR was initiated with ROSC at 5 minutes, epinephrine infusion added .Noted reddish-brown fulminant oral secretions. CT scan abdomen pelvis pending. Objective Vital Signs Date Time Temp Pulse Resp B/P (MAP) Pulse Ox O2 Delivery O2 Flow Rate FiO2 06/28/17 06:30 94 65 06/28/17 06:29 133 82/50 06/28/17 04:00 99.9 06/28/17 00:00 24 Intake and Output 06/28/17 06/28/17 06/29/17 08:00 16:00 00:00 Intake Total 2299 ml Output Total 700 ml Balance 1599 ml Result Diagram: 06/28/17 0450 06/28/17 0450 Other Results Laboratory Tests Test 06/27/17 10:45 06/28/17 04:43 06/28/17 07:15 Blood Gas Puncture Site ART LINE ART LINE RT RADIAL Blood Gas Patient Temperature 98.6 98.6 98.6 Blood Gas HCO3 22 mmol/L (22-26) 17 mmol/L (22-26) 18 mmol/L (22-26) Blood Gas Base Excess -3.1 mmol/L (-2-2) -9.0 mmol/L (-2-2) -8.0 mmol/L (-2-2) Blood Gas Oxygen Saturation 88 % (90-100) 90 % (90-100) 87 % (90-100) Arterial Blood pH 7.34 (7.380-7.420) 7.22 (7.380-7.420) 7.22 (7.380-7.420) Arterial Blood Partial Pressure CO2 42 mmHg (38-42) 44 mmHg (38-42) 46 mmHg (38-42) Arterial Blood Partial Pressure O2 65 mmHg (61-120) 70 mmHg (61-120) 61 mmHg (61-120) Arterial Blood Oxygen Content 20.6 Vol % (12.0-20.0) 20.5 Vol % (12.0-20.0) 18.7 Vol % (12.0-20.0) Arterial Blood Carboxyhemoglobin 1.1 % (0-4) 0.9 % (0-4) 0.9 % (0-4) Arterial Blood Methemoglobin 1.4 % (0-2) 1.5 % (0-2) 1.6 % (0-2) Blood Gas Hemoglobin 16.7 G/DL (12.0-16.0) 16.2 G/DL (12.0-16.0) 15.3 G/DL (12.0-16.0) Oxygen Delivery Device VENTILATOR VENT VENTILATOR Blood Gas Ventilator Setting A/C 500/18/10PEEP SEE COMMENTS A/C 550/18/8PEEP Blood Gas Inspired Oxygen 65 % 65 % 65 % Imaging Last Impressions Abdomen X-Ray 06/28/17 0600 Signed Impressions: Service Date/Time: Wednesday, June 28, 2017 05:37 - CONCLUSION: Extremely limited exam due to patient's body habitus. Anatomic detail is very difficult to delineate. Dami Cm MD Chest X-Ray 06/28/17 0000 Signed Impressions: Service Date/Time: Wednesday, June 28, 2017 05:48 - CONCLUSION: 1. Interval placement of a left IJ central venous catheter with the tip projecting over the central venous system. No pneumothorax 2. Endotracheal tube has been significantly pulled back with the tip now in the cervical esophagus. This should probably be advanced 5-8 cm. 3. Improving aeration in the left base. Minimal atelectatic changes in the right base. Dami Cm MD Abdomen/Pelvis CT 06/28/17 0000 Signed Impressions: Service Date/Time: Wednesday, June 28, 2017 08:09 - CONCLUSION: 1. Significant bowel dilatation is not seen. Oral and intravenous contrast was not given for this exam. 2. Hepatic steatosis. 3. Multiple renal masses likely related to cysts including an 18 cm mass at the inferior left kidney. Ideally, these will be further evaluated with a contrast-enhanced CT or MRI examination. This could be performed as an outpatient on a nonemergent basis. 4. Right lower lobe consolidation. 5. Small 3 mm nonobstructing left renal stone. Isauro Streeter MD CT Angiography 06/23/17 0000 Signed Impressions: Service Date/Time: Friday, June 23, 2017 15:11 - CONCLUSION: 1. Endotracheal tube has its tip in the right mainstem bronchus. This should be pulled back at least 3 cm from more optimal positioning. 2. No large pulmonary emboli identified on the suboptimal CT pulmonary angiogram due to poor cardiac output. 3. Posterior bibasilar atelectasis and/or infiltrates. 4. Enlarged fatty liver. 5. Mild splenomegaly. 6. Cardiomegaly. Preston Montoya MD Head CT 06/21/172121 Signed Impressions: Service Date/Time: Wednesday, June 21, 2017 21:43 - CONCLUSION: No acute disease. Kang Coronado MD Last Impressions Abdomen X-Ray 06/28/17 0600 Signed Impressions: Service Date/Time: Wednesday, June 28, 2017 05:37 - CONCLUSION: Extremely limited exam due to patient's body habitus. Anatomic detail is very difficult to delineate. Dami Cm MD Chest X-Ray 06/28/17 0000 Signed Impressions: Service Date/Time: Wednesday, June 28, 2017 05:48 - CONCLUSION: 1. Interval placement of a left IJ central venous catheter with the tip projecting over the central venous system. No pneumothorax 2. Endotracheal tube has been significantly pulled back with the tip now in the cervical esophagus. This should probably be advanced 5-8 cm. 3. Improving aeration in the left base. Minimal atelectatic changes in the right base. Dami Cm MD CT Angiography 06/23/17 0000 Signed Impressions: Service Date/Time: Friday, June 23, 2017 15:11 - CONCLUSION: 1. Endotracheal tube has its tip in the right mainstem bronchus. This should be pulled back at least 3 cm from more optimal positioning. 2. No large pulmonary emboli identified on the suboptimal CT pulmonary angiogram due to poor cardiac output. 3. Posterior bibasilar atelectasis and/or infiltrates. 4. Enlarged fatty liver. 5. Mild splenomegaly. 6. Cardiomegaly. Preston Montoya MD Head CT 06/21/172121 Signed Impressions: Service Date/Time: Wednesday, June 21, 2017 21:43 - CONCLUSION: No acute disease. Kang Coronado MD Last Impressions Chest X-Ray 06/24/17 0600 Signed Impressions: Service Date/Time: Saturday, June 24, 2017 04:38 - CONCLUSION: Endotracheal tube and nasogastric tube in good position. Mild basilar opacity similar to June 23. Franck Desai MD CT Angiography 06/23/17 0000 Signed Impressions: Service Date/Time: Friday, June 23, 2017 15:11 - CONCLUSION: 1. Endotracheal tube has its tip in the right mainstem bronchus. This should be pulled back at least 3 cm from more optimal positioning. 2. No large pulmonary emboli identified on the suboptimal CT pulmonary angiogram due to poor cardiac output. 3. Posterior bibasilar atelectasis and/or infiltrates. 4. Enlarged fatty liver. 5. Mild splenomegaly. 6. Cardiomegaly. Preston Montoya MD Head CT 06/21/172121 Signed Impressions: Service Date/Time: Wednesday, June 21, 2017 21:43 - CONCLUSION: No acute disease. Kang Coronado MD Objective Remarks GENERAL: Super morbidly obese female patient intubated , sedation discontinued early this am. SKIN: Warm and dry. Large pannus with noted malodorous, reddened, excoriated area, with white exudative area noted HEAD: Atraumatic. Normocephalic. EYES: Pupils equal and round. No scleral icterus. No injection or drainage. ENT: No nasal bleeding or discharge. Mucous membranes pink and moist. No tracheal intubated NECK: Trachea midline. Unable to assess JVD secondary to body habitus. CARDIOVASCULAR: Tachycardic rate. Currently on vasopressors RESPIRATORY: No accessory muscle use. Clear to auscultation, diminished throughout. Breath sounds equal bilaterally. GASTROINTESTINAL: Abdomen soft, obese non-tender, nondistended. No guarding. Skin/wound area as noted above MUSCULOSKELETAL: Extremities without clubbing, cyanosis, or edema. No obvious deformities. NEUROLOGICAL: RASS-3. Patient nonresponsive status post cardiac arrest, as well as precardiac arrest early this a.m. all sedatives discontinued Procedures 06/22 intubation 06/28 ACLS x 5 mins- Code Blue, in CT Scanner, Radiology Dept. Date of Insertion: Jun 21, 2017 Date of Removal: Jun 22, 2017 Vascular Central Line Catheter: Yes Assessment to: Continue Date of Insertion: Jun 28, 2017 Line: Central Venous Catheter Side: Left Location: Subclavian (vasoactive medication ) A/P Assessment and Plan Assessment: This is a super morbidly obese female patient presented with somnolent episodes and intermittent agitation, with hyponatremia,bipolar disorder, with possible polypharmacy. Patient with persistent acute hypoxic and hypercarbic respiratory failure as well as severe agitated delirium. remains critically ill and off pathway. Certainly with history of significant antipsychotic use, NMS could be in the differential, but not rigid, and has been off these agents for days now. will ask psych to eval to help with agitation as well as investigate NMS/Seratonin syndrome. will check CK levels. Will also send procalcitonin to help us differentiate bacterial infection vs. non-infectious causes of fever. remains very critically ill today without meaningful improvements. Neurologic: Bipolar disorder Depression Restless leg syndrome Polypharmacy Anxiety disorder Toxic encephalopathy Agitated Delirium Metabolic encephalopathy Cannaboids/ THC Neuro checks per ICU protocol 06/22 Intubated for respiratory decompensation Benadryl 12.5 mg IV push 1 dose for dystonia secondary to metoclopramide 06/21 Patient home medications include Roperinole, Trazodone, Citalopram, Benztropine, Hydroxyzine and Alprazolam will hold for now 06/22 UDS-positive for Cannaboids/THC 06/21 lithium level-0.5 (low normal) oxycodone scheduled for background pain control guanfacine 2mg po q12h for agitated delirium- alpha2 agonist and unlikely to cause dystonia will hold off on dopaminergic agents, atypical antipsychotics for now. 06/[address] Garnica after review of medications Respiratory: COPD Asthma Obesity hypoventilation syndrome Obstructive sleep apnea Acute Hypoxic/hypercapnic respiratory failure Maintain O2 sat greater than 92% 06/22 intubated for respiratory decompensation 7.5 ETT Duo nebs every 6 hours scheduled every 2 hours when necessary Ventilator bundle not ready for SBT today given agitation. off pathway. Methylprednisolone 40 mg every 12hr 06/21 D Dimer-0.33 06/23-Echo performed on 06/22 showed RV mildly dilated, RA dilation, EF 55-60% 06/23 CT pulmonary angiogram - negative for large PE. Cardiovascular: Hypertension Sinus Bradycardia Cardiogenic shock S/P Cardiac Arrest 06/28 Acute MT Lisinopril 5 mg /day 06/21 EKG-right bundle branch block left posterior fascicular block (patient has history of right bundle branch block 06/22 9 ECHO results-RV slightly decreased function, right atrium mildly dilated , trace tricuspid regurg, noted IVC dilation,EF bradycardia likely secondary to sedation. otherwise hemodynamically stable. will tolerate HR > 40. 06/28 troponin level early this a.m. 4.75, prior to cardiac arrest in CT 06/28 patient started on phenylephrine 300 mcgs at 4 AM, vasopressin, epinephrine infusions added postcardiac arrest 06/28 postcardiac arrest-A. fib RVR right bundle branch block with left anterior fascicular block 06/28 stat echocardiogram-pending 06/28 Cardiology consulted-Dr. Han Renal: Maintain Caban -- Strict I/Os FEN/GI: Hyponatremia-resolved Super morbid obesity Chronic Renal insufficiency, unknown stage at baseline Nausea and vomiting Hypercholesterolemia Possible UGIB Acute kidney injury- ARF Large renal cyst 06/28 NPO- NGT -LIWS- coffee ground appearing emesis Na 138 Cr slightly uptrending, possibly over-diuresed. will start low-dose MIVF and lasix held 06/27 Continue simvastatin 06/23: LDL 50, HDL 41, trig 112 06/28 GI consulted- will begin Protonix infusion, discussed with Dr. Lagunas, plan for EGD today 06/28 Nephrology consulted Sodium bicarbonate increased to 150 mEq/850 cc @ 150cc/hr 06/28-multiple renal cysts, one large 18 cm water density mass, discussed with Dr. Streeter stated appearance is of a large renal cyst Heme/ID: Skin wound infection Fevers Septic shock Monitor CBC, WBC count within normal limits Lactate 0.9 Empiric dosing Azactam, metronidazole, and vancomycin-white excoriated creamy malodorous large area involving skinfolds of pannus, and cellulitis? LLE Nystatin powder to pannus area 06/21-blood micrococcus 06/27-repeat cultures pending 06/28 micafungin added, ID consulted, patient continues on previous antibiotics Monitor serial Hgb 06/27 procalcitonin level check LFTs/Lipase consult ID to assist in evaluating source of Fever, Dr. Ngo following Endocrine: Hypothyroidism Diabetes mellitus TSH significantly elevated 5.4, free T4- 9.7 WNL Continue Synthroid 100 mcgs daily Obtain hemoglobin A1c Glucose monitoring per ICU protocol-medium dose regimen -- SSI Prophylaxis: GI Prophylaxis Protonix 40 mg IV DVT Prophylaxis -- SCDs Heparin 5000u SQ on hold in the setting of upper GI bleed Lines: Central line placement 06/28 at 4am, vasopressors initiated. Dispo: This patient remains critically ill with one or more organ systems which are or may become a threat to life. I have spent in excess of 100 minutes discontinuously in the care and management of this patient. This time is exclusive of procedures, and includes, but is not limited to, evaluation of the patient, review of the medical record, discussions with family, consultants, nursing staff, or respiratory therapy, and documentation in the medical record. 06/28 0834- I telephoned the patient's son Mr. Saúl Granados and Joselyn Granados and provided an update on the patient's medical status to include declining status, Code Blue with ROSC at 5 mins and current actively on multiple pressors. I discussed with the family the possibility of AMI, Severe Septic shock in the setting upper GI bleed., that the prognosis is guarded at this time. 06/28:Upon patient's return to ICU post cardiac arrest in CT scanner, I discussed case with Dr. Han (Cardiology). Possibility off AMI, but currently unable to administer heparin secondary to possible GI bleed, aspirin secondary to GI bleed, and/or beta fela secondary to severe hypotension and on multiple pressors at this time. Imaging studies, labs EKG being review will follow up recommendations per Cardiology. CT of the abdomen and pelvis currently pending awaiting results. 06/28: [address] Streeter, radiologist, CT imaging structure 18 cm water density, appears to be a large renal cyst. Telephone discussion with IR, Dr. Gan after review of imaging studies, no acute intervention at this time required. 06/28 :Discussion with this am regarding acute elevation in creatinine and oliguria. Physician Katie Benavidez MD Jun 28, 2017 08:33
[2017-06-28] MEDS ORDERED: VASOPRESSIN 20 UNITS/ML VIAL (IVTITR) ONE (08:34)
--- NOTE | 2017-06-28 08:53 | RADRPT ---
EXAM DATE/TIME: 06/28/2017 08:09 [facility] COMPARISON: No previous studies available for comparison. INDICATIONS : Evaluate for obstruction. ORAL CONTRAST: No oral contrast ingested. RADIATION DOSE: 44.54 CTDIvol (mGy) ; Patient body habitus MEDICAL HISTORY : Chronic obstructive pulmonary disease. Hypertension. Diabetes mellitus type 2.Asthma, GERD SURGICAL HISTORY : Appendectomy. Cholecystectomy.Hysterectomy. ENCOUNTER: Initial ACUITY: 1 day PAIN SCALE: Non-responsive LOCATION: Bilateral abdomen TECHNIQUE: Volumetric scanning of the abdomen and pelvis was performed. Using automated exposure control and ad justment of the mA and/or kV according to patient size, radiation dose was kept as low as reasonably achievable to obtain optimal diagnostic quality images. DICOM format image data is available electro nically for review and comparison. FINDINGS: LOWER LUNGS: There is increased density in the right lower lobe with air bronchograms. Left base is clear. LIVER: There is decreased density seen throughout the liver, no focal mass is seen. The patient is status po st cholecystectomy. SPLEEN: Normal size without lesion. PANCREAS: Within normal limits. KIDNEYS: Multiple renal masses are seen. These are nonspecific on this noncontrast CT examination. They likely represent cysts.. This includes a large 18 cm water density mass at the inferior aspect of the left kidney. There is a 3 mm nonobstructing stone seen in the left collecting system. There is mild fulln ess of the right collecting system. The ureters are not dilated. ADRENAL GLANDS: Within normal limits. VASCULAR: There is no aortic aneurysm. BOWEL/MESENTERY: There is an NG-tube in place with tip in the distal stomach. Oral contrast was not given for this exa m. Significant bowel distention is not seen. Stool seen in the rectum. ABDOMINAL WALL: Within normal limits. RETROPERITONEUM: There is no lymphadenopathy. BLADDER: There is a Caban catheter in place. REPRODUCTIVE: The patient status post hysterectomy. A pelvic mass is not seen. INGUINAL: There is no lymphadenopathy or hernia. MUSCULOSKELETAL: There is degenerative change in the lumbar spine. There does appear to be possible spondylolisthesis of the lower lumbar spine. CONCLUSION: 1. Significant bowel dilatation is not seen. Oral and intravenous contrast was not given for this exa m. 2. Hepatic steatosis. 3. Multiple renal masses likely related to cysts including an 18 cm mass at the inferior left kidney. Ideally, these will be further evaluated with a contrast-enhanced CT or MRI examination. This could be performed as an outpatient on a nonemergent basis. 4. Right lower lobe consolidation. 5. Small 3 mm nonobstructing left renal stone. Isauro Streeter MD on June 28, 2017 at 8:35 Board Certified Radiologist. This report was verified electronically.
[2017-06-28] MEDS: DOCUSATE SODIUM 50 MG/SENNA 8.6 MG TAB PO SCH (09:00)
[2017-06-28] MEDS ORDERED: AMIODARONE 150 MG/D5W 97 ML BOLUS 10 MINUTES IV ONE ×2 (09:00)
[2017-06-28] MEDS: SODIUM CHLORIDE 0.9% FLUSH 10 ML FLUSH IV FLUSH SCH (09:00)
[2017-06-28] MEDS: guanFACINE HCL 1 MG TAB PO SCH (09:00)
[2017-06-28] MEDS ORDERED: AMIODARONE INJ 450 MG in D5W (EXCEL BAG) INJ 241 ML IV SCH (09:00)
[2017-06-28] MEDS: PRAVASTATIN SOD 40 MG TAB PO SCH (09:00)
--- NOTE | 2017-06-28 09:40 | ECHRPT ---
Indication: S/P CARDIAC ARREST CONCLUSIONS The left ventricle is not well visualized. Normal left ventricular size. Wall thickness is normal. The left ventricular systolic function is grossly normal on limited imaging. Doppler parameters are consistent with impaired left ventricular relaxtion (grade 1 diastolic dysfun ction). The right ventricle was not well visualized. The right ventricle is mildly dilated. The right ventricular systoilc function is mildly decreased. The left atrial size is mildly dilated. The right atrium is not well visualized. The interatrial septum not well visualized. The aortic root and proximal ascending aorta are not well visualized. The mitral valve is not well visualized. No mitral valve regurgitation. No mitral valve stenosis. The aortic valve is not well visualized. No aortic valve regurgitation. No aortic valve stenosis. The tricuspid valve is not well visualized. There is trace tricuspid valve regurgitation. Normal estimated pulmonary pressures. The pulmonary valve is not well visualized. The inferior vena cava was not well visualized. BP: 81 / 46 HR: 149 Rhythm: MEASUREMENTS (Male / Female) Normal Values Technical Quality:Poor, Very technically difficult study 2D ECHO LV Diastolic Diameter PLAX 4.6 cm 4.2 - 5.9 / 3.9 - 5.3 cm LV Systolic Diameter PLAX 3.0 cm IVS Diastolic Thickness 0.9 cm 0.6 - 1.0 / 0.6 - 0.9 cm LVPW Diastolic Thickness 0.9 cm 0.6 - 1.0 / 0.6 - 0.9 cm LV Relative Wall Thickness 0.4 LA Systolic Diameter LX 2.9 cm 3.0 - 4.0 / 2.7 - 3.8 cm DOPPLER AV Peak Velocity 168.0 cm/s AV Peak Gradient 11.3 mmHg AV Mean Gradient 6.0 mmHg AV Velocity Time Integral 18.7 cm LVOT Peak Velocity 38.3 cm/s LVOT Peak Gradient 0.6 mmHg LVOT Velocity Time Integral 4.9 cm Mitral E Point Velocity 29.9 cm/s Mitral A Point Velocity 55.0 cm/s Mitral E to A Ratio 0.5 LV E' Lateral Velocity 11.8 cm/s Mitral E to LV E' Lateral Ratio 2.5 LV E' Septal Velocity 10.0 cm/s Mitral E to LV E' Septal Ratio 3.0 TR Peak Velocity 153.0 cm/s TR Peak Gradient 9.4 mmHg FINDINGS LEFT VENTRICLE The left ventricle is not well visualized. Normal left ventricular size. Wall thickness is normal. The left ventricular systolic function is grossly normal on limited imaging. Doppler parameters are consistent with impaired left ventricular relaxtion (grade 1 diastolic dysfun ction). RIGHT VENTRICLE The right ventricle was not well visualized. The right ventricle is mildly dilated. The right ventricular systoilc function is mildly decreased. LEFT ATRIUM The left atrial size is mildly dilated. RIGHT ATRIUM The right atrium is not well visualized. ATRIAL SEPTUM The interatrial septum not well visualized. AORTA The aortic root and proximal ascending aorta are not well visualized. MITRAL VALVE The mitral valve is not well visualized. No mitral valve regurgitation. No mitral valve stenosis. Structurally normal mitral valve. No mitral valve stenosis or regurgitation. AORTIC VALVE The aortic valve is not well visualized. No aortic valve regurgitation. No aortic valve stenosis. TRICUSPID VALVE The tricuspid valve is not well visualized. There is trace tricuspid valve regurgitation. Normal estimated pulmonary pressures. PULMONARY VALVE The pulmonary valve is not well visualized. VESSELS The inferior vena cava was not well visualized. PERICARDIUM No pericardial effusion. Stevan Carlson MD (Electronically Signed) Final Date:28 June 2017 09:39
[2017-06-28] MEDS ORDERED: LEVOFLOXACIN 500 MG PREMIX INJ 100 ML IV SCH (10:00)
[2017-06-28] MEDS ORDERED: SODIUM BICARBONATE 8.4% INJ 150 MEQ in SODIUM CHLOR 0.45% 1000 ML INJ 850 ML IV SCH (10:00)
[2017-06-28] MEDS: methylPREDNISolone SOD SUCC 40 MG/1 ML VIAL IV PUSH SCH (10:26)
[2017-06-28] MEDS ORDERED: SODIUM CHLORIDE 23.4% INJ 38.5 MEQ, SODIUM BICARBONATE 8.4% INJ 75 MEQ in WATER STERILE... IV SCH (10:30)
[2017-06-28] MEDS ORDERED: CALCIUM GLUCONATE INJ 1 GM in DEXTROSE 5% IN WATER 100ML INJ 100 ML IV ONE ×2 (10:30)
[2017-06-28] MEDS: NYSTATIN 100,000 U/GM PWD 15 GM BTL TOPICAL SCH (10:35)
--- NOTE | 2017-06-28 10:48 | PD.PROCEDR ---
Procedure Note Procedure Date: 06/28/2017 Procedure: Cardiopulmonary resuscitation Indication: Cardiac arrest Details of procedure: Was called to the CT scanner. The patient developed sinus bradycardia followed by V. tach with subsequent asystole cardiac arrest, during CT scan imaging. Per ACLS protocol, patient received CPR, manual bag valve ventilation via ETT, epinephrine x 3. After 5 minutes resuscitation we were able/ to restore spontaneous circulation after 5 mins. The family was notified by Dr. Gonzalez. The patient was transported back to the ICU and remains on vasopressors for maintenance of MAP Katie Gonzalez MD Jun 28, 2017 10:48
--- NOTE | 2017-06-28 10:49 | PD.CONS ---
[facility] Service Nephrology Consult Requested By Dr. Gonzalez. Reason for Consult BASIL, metabolic acidosis Primary Care Physician Haja Dent, DO History of Present Illness was admitted on the of this month with complaints of nausea, vomiting, and some confusion. On admission, her creatinine was 1.4. No previous labs are available. She was noted to have severe respiratory acidosis, she was intubated on admission. Her creatinine was 1.49 on the . It increased to 1.87 on 06/27, later to 2.49 on the same day and today it is 3.41. She also has developed metabolic acidosis due to lactic acidosis. On the , she developed profound hypotension. Urine output has dropped. She was on Micafungin and Aztreonam. Patient was in CT for CT of the abdomen, when she developed cardiac arrest. Resuscitated for 5 minutes. Currently she is on 4 different pressors, intubated, unresponsive. She is on bicarbonate drip. Of note, the patient was on [place] at the time of arrival. Review of Systems ROS Limitations: Clinical Condition, Intubated Past Family Social History Allergies: Coded Allergies: Penicillins (Verified Allergy, Unknown, Unknown , 06/21/17) Past Medical History Morbid obesity Type 2 diabetes. Bipolar illness COPD Hypertension Hypothyroidism. Reported Medications Alprazolam 1 Mg Tab 1 Mg PO Q8H PRN Omeprazole 20 Mg Tab 20 Mg PO DAILY Hydroxyzine Pamoate 25 Mg Cap 25 Mg PO BID Glimepiride 4 Mg Tab 4 Mg PO BIDAC [place] Carbonate ER ([place] Carbonate) 450 Mg Tab 450 Mg PO BID Benztropine (Benztropine Mesylate) 0.5 Mg Tab 1 Mg PO HS Klor-Con 10 (Potassium Chloride) 10 Meq Tab 10 Meq PO DAILY Levothyroxine (Levothyroxine Sodium) 100 Mcg Tab 100 Mcg PO DAILY Ropinirole 4 Mg Tab 4 Mg PO HS Quetiapine (Quetiapine Fumarate) 400 Mg Tab 800 Mg PO HS Trazodone (Trazodone HCl) 150 Mg Tablet 150 Mg PO HS Doxepin (Doxepin HCl) 100 Mg Cap 100 Mg PO HS Lisinopril 5 Mg Tab 5 Mg PO DAILY Simvastatin 20 Mg Tab 20 Mg PO DAILY Citalopram (Citalopram Hydrobromide) 20 Mg Tab 20 Mg PO DAILY Active Ordered Medications Current Medications Medications (Trade) Dose Ordered Sig/Robbi Route Start Time Stop Time Status Last Admin (NS Flush) 2 ml UNSCH PRN IV FLUSH 06/21/17 23:45 06/27/17 08:54 (NS Flush) 2 ml BID IV FLUSH 06/22/17 09:00 06/27/17 19:31 (Tylenol) 650 mg Q6H PRN PO 06/21/17 23:45 06/27/17 23:48 (Protonix Inj) 40 mg DAILY IV PUSH 06/22/17 09:00 06/27/17 08:54 (Zofran Inj) 4 mg Q6H PRN IV PUSH 06/21/17 23:45 06/28/17 04:30 (Heparin Inj) 5,000 units Q8H SQ 06/22/17 06:00 Future Hold 06/28/17 04:30 Miscellaneous Information 1 Q361D XX 06/21/17 23:45 (Chlorhexidine 2% Cloth) Taper DAILY@04 TOP 06/22/17 04:00 06/18/18 03:59 06/25/17 04:00 (Chlorhexidine 2% Cloth) 3 pack UNSCH PRN TOP 06/21/17 23:45 (Shell-Colace) 1 tab BID PO 06/22/17 09:00 06/27/17 19:31 (Milk Of Magnesia Liq) 30 ml Q12H PRN PO 06/21/17 23:45 (Senokot) 17.2 mg Q12H PRN PO 06/21/17 23:45 (Dulcolax Supp) 10 mg DAILY PRN RECTAL 06/21/17 23:45 (Lactulose Liq) 30 ml DAILY PRN PO 06/21/17 23:45 Potassium Chloride 100 ml @ 50 mls/hr Q2H PRN IV 06/21/17 23:45 Potassium Chloride 100 ml @ 50 mls/hr Q2H PRN IV 06/21/17 23:45 (K-Lyte Cl Eff) 50 meq UNSCH PRN PO 06/21/17 23:45 Potassium Chloride 100 ml @ 25 mls/hr UNSCH PRN IV 06/21/17 23:45 Potassium Chloride 100 ml @ 50 mls/hr Q2H PRN IV 06/21/17 23:45 Magnesium Sulfate 4 gm/Sodium Chloride 100 ml @ 50 mls/hr UNSCH PRN IV 06/21/17 23:45 (Mag-Ox) 800 mg UNSCH PRN PO 06/21/17 23:45 Magnesium Sulfate 2 gm/Sodium Chloride 100 ml @ 50 mls/hr UNSCH PRN IV 06/21/17 23:45 (K-Phos) 2,000 mg Q4H PRN PO 06/21/17 23:45 Sodium Phosphate 30 mmol/Sodium Chloride 250 ml @ 42 mls/hr UNSCH PRN IV 06/21/17 23:45 (K-Phos) 2,000 mg UNSCH PRN PO/TUBE 06/21/17 23:45 Potassium Phosphate 30 mmol/ Sodium Chloride 260 ml @ 42 mls/hr UNSCH PRN IV 06/21/17 23:45 (SoluMEDROL INJ) 40 mg Q12HR IV PUSH 06/22/17 09:00 06/27/17 19:31 (Synthroid) 100 mcg DAILY@0700 PO 06/22/17 07:00 06/27/17 06:12 (Pravachol) 40 mg DAILY PO 06/22/17 09:00 06/27/17 08:54 Pharmacy Profile Note 0 ml @ 0 mls/hr UNSCH OTHER 06/22/17 01:00 Metronidazole 100 ml @ 100 mls/hr Q8H IV 06/22/17 02:00 06/28/17 01:09 Propofol 100 ml @ 4.5 mls/hr TITRATE PRN IV 06/22/17 07:15 06/27/17 22:43 (Peridex 0.12% Liq) 15 ml BID@08,20 MT 06/22/17 08:00 06/27/17 19:31 (Duoneb Neb) 1 ampule Q2HR NEB PRN NEB 06/22/17 08:00 (Mycostatin Powder) 1 applic Q12HR TOPICAL 06/23/17 14:30 06/27/17 19:32 (Roxicodone Intensol Liq) 10 mg Q6H PO 06/24/17 10:00 06/27/17 22:42 (D50w (Vial) Inj) 25 ml UNSCH PRN IV PUSH 06/24/17 09:30 (Tenex) 2 mg Q12HR PO 06/24/17 09:30 06/27/17 19:32 (Duoneb Neb) 1 ampule Q6HR WHILE AWAKE NEB NEB 06/26/17 08:00 06/27/17 19:50 Insulin Human Regular 100 units/ Sodium Chloride 100 ml @ 3 mls/hr TITRATE IV 06/27/17 12:00 06/28/17 05:54 (D50w (Vial) Inj) 50 ml UNSCH PRN IV PUSH 06/27/17 12:00 Micafungin Sodium 150 mg/Sodium Chloride 100 ml @ 100 mls/hr Q24H IV 06/27/17 20:00 06/27/17 20:00 Phenylephrine HCl 40 mg/Dextrose 500 ml @ 30 mls/hr TITRATE PRN IV 06/28/17 05:00 06/28/17 06:29 (Brethine Inj) 1 mg UNSCH PRN SQ 06/28/17 05:00 Vasopressin 40 units/Dextrose 100 ml @ 1.5 mls/hr Q24H IV 06/28/17 08:06 Sodium Bicarbonate 150 meq/Sodium Chloride 1,000 ml @ 150 mls/hr Q6H40M IV 06/28/17 10:00 Levofloxacin/ Dextrose 100 ml @ 100 mls/hr Q48H IV 06/28/17 10:00 Aztreonam 1000 mg/ Sodium Chloride 100 ml @ 200 mls/hr Q6H IV 06/28/17 11:00 Pantoprazole Sodium 80 mg/ Sodium Chloride 100 ml @ 10 mls/hr Q10H IV 06/28/17 11:14 UNV Family History not known, unable to obtain Social History no tobacco, occasional ETOH according to admit note. Physical Exam Vital Signs Vital Signs Date Time Temp Pulse Resp B/P (MAP) Pulse Ox O2 Delivery O2 Flow Rate FiO2 06/28/17 08:00 94 100 06/28/17 06:30 94 65 06/28/17 06:29 133 82/50 06/28/17 04:32 120 50/35 06/28/17 04:16 94 65 06/28/17 04:00 99.9 06/28/17 04:00 65 06/28/17 04:00 134 06/28/17 02:16 96 65 06/28/17 02:00 118 06/28/17 00:08 94 65 06/28/17 00:00 99.9 115 24 89/50 (63) 95 104/52 (69) 06/28/17 00:00 65 06/28/17 00:00 115 06/27/17 22:00 91 06/27/17 20:00 97.4 117 23 107/56 (73) 97 135/70 (91) 06/27/17 20:00 117 06/27/17 20:00 65 06/27/17 19:51 94 65 06/27/17 18:00 117 06/27/17 17:15 92 65 06/27/17 16:00 104 06/27/17 16:00 102.9 106 22 88/52 (64) 94 94/74 (81) 06/27/17 16:00 65 06/27/17 14:00 114 06/27/17 13:40 102.1 107 22 91/58 (69) 94 69/57 (61) 06/27/17 12:00 107 06/27/17 12:00 65 06/27/17 11:55 95 65 06/27/17 10:47 65 Physical Exam GENERAL: morbidly obese, unresponsive on the ventilator. Hemodynamically unstable. SKIN: Warm and dry. HEAD: Normocephalic. Intubated. EYES: No scleral icterus. No injection or drainage. NECK: Supple, trachea midline. No JVD or lymphadenopathy. CARDIOVASCULAR: Tachycardic, monitor reveals wide complex rhythm, possibly bundle branch block RESPIRATORY: bilateral wheezing and rhonchi, vented breath sounds heard. . GASTROINTESTINAL: Abdomen soft, obese, large pannus, she has skin rash suggestive of intertrigo. MUSCULOSKELETAL: dependent edema. Laboratory Laboratory Tests Test 06/27/17 10:45 06/27/17 13:20 06/27/17 19:50 06/28/17 04:43 Blood Gas Puncture Site ART LINE ART LINE Blood Gas Patient Temperature 98.6 98.6 Blood Gas HCO3 22 17 Blood Gas Base Excess -3.1 -9.0 Blood Gas Oxygen Saturation 88 90 Arterial Blood pH 7.34 7.22 Arterial Blood Partial Pressure CO2 42 44 Arterial Blood Partial Pressure O2 65 70 Arterial Blood Oxygen Content 20.6 20.5 Arterial Blood Carboxyhemoglobin 1.1 0.9 Arterial Blood Methemoglobin 1.4 1.5 Blood Gas Hemoglobin 16.7 16.2 Oxygen Delivery Device VENTILATOR VENT Blood Gas Ventilator Setting A/C 500/18/10PEEP SEE COMMENTS Blood Gas Inspired Oxygen 65 65 Total Bilirubin 0.3 0.3 Direct Bilirubin 0.1 Indirect Bilirubin 0.2 Aspartate Amino Transf (AST/SGOT) 37 45 Alanine Aminotransferase (ALT/SGPT) 37 40 Alkaline Phosphatase 102 92 Total Protein 7.2 6.9 Albumin 3.3 3.4 Lipase 53 Procalcitonin 1.02 Blood Urea Nitrogen 59 Creatinine 2.49 Random Glucose 458 Calcium Level 7.4 Sodium Level 147 Potassium Level 3.6 Chloride Level 115 Carbon Dioxide Level 21.3 Anion Gap 11 Estimat Glomerular Filtration Rate 20 Protein Corrected Calcium 7.5 Total Creatine Kinase 565 Creatine Kinase MB 1.5 Creatine Kinase MB % 0.3 Test 06/28/17 04:50 06/28/17 06:00 06/28/17 07:15 White Blood Count 23.7 Red Blood Count 4.92 Hemoglobin 14.9 Hematocrit 48.1 Mean Corpuscular Volume 97.8 Mean Corpuscular Hemoglobin 30.2 Mean Corpuscular Hemoglobin Concent 30.9 Red Cell Distribution Width 14.6 Platelet Count 216 Mean Platelet Volume 9.7 Neutrophils (%) (Auto) 79.3 Lymphocytes (%) (Auto) 12.4 Monocytes (%) (Auto) 7.9 Eosinophils (%) (Auto) 0.0 Basophils (%) (Auto) 0.4 Neutrophils # (Auto) 19.7 Lymphocytes # (Auto) 3.1 Monocytes # (Auto) 2.0 Eosinophils # (Auto) 0.0 Basophils # (Auto) 0.1 Differential Total Cells Counted 100 Neutrophils % (Manual) 75 Band Neutrophils % 6 Lymphocytes % 11 Monocytes % 7 Neutrophils # (Manual) 19.4 Myelocytes 1 Differential Comment FINAL DIFF MANUAL Platelet Estimate NORMAL Platelet Morphology Comment NORMAL Blood Urea Nitrogen 67 Creatinine 3.41 Random Glucose 326 Total Protein 5.5 Albumin 2.5 Calcium Level 5.8 Alkaline Phosphatase 76 Aspartate Amino Transf (AST/SGOT) 58 Alanine Aminotransferase (ALT/SGPT) 37 Total Bilirubin 0.3 Sodium Level 153 Potassium Level 2.9 Chloride Level 124 Carbon Dioxide Level 15.8 Anion Gap 13 Estimat Glomerular Filtration Rate 14 Protein Corrected Calcium 6.5 B-Hydroxybutyrate 0.18 Lactic Acid Level 2.4 Troponin I 4.75 Blood Gas Puncture Site RT RADIAL Blood Gas Patient Temperature 98.6 Blood Gas HCO3 18 Blood Gas Base Excess -8.0 Blood Gas Oxygen Saturation 87 Arterial Blood pH 7.22 Arterial Blood Partial Pressure CO2 46 Arterial Blood Partial Pressure O2 61 Arterial Blood Oxygen Content 18.7 Arterial Blood Carboxyhemoglobin 0.9 Arterial Blood Methemoglobin 1.6 Blood Gas Hemoglobin 15.3 Oxygen Delivery Device VENTILATOR Blood Gas Ventilator Setting A/C 550/18/8PEEP Blood Gas Inspired Oxygen 65 Date/Time Source Procedure Growth Status 06/27/17 12:45 Blood Peripheral Aerobic Blood Culture - Preliminary Gram Positive Cocci Resulted 06/27/17 12:45 Blood Peripheral Anaerobic Blood Culture Pending Resulted 06/27/17 05:55 Sputum Endotracheal Gram Stain - Final Resulted 06/27/17 05:55 Sputum Endotracheal Sputum Culture Pending Resulted 06/27/17 05:55 Urine Random Urine Urine Culture Pending Received Result Diagram: 06/28/17 04506/28/17449 Assessment and Plan Problem List: (1) Acute worsening of stage 3 chronic kidney disease ICD Codes: N18.3 - Chronic kidney disease, stage 3 (moderate) Plan: patient may have underlying CKD due to diabetic nephropathy, but also could be secondary to chronic [place] use. BASIL is likely due to sepsis, septic shock and release of inflammatory mediators. At this time, her blood culture is positive for Gram positive cocci. ID has been consulted. She has received one dose of Vancomycin 2 grams IV. Maintain MAP above 65. Avoid nephrotoxic agents such as NSAIDs, aminoglycosides etc. Monitor urine output and renal function. She is unstable for any form of renal replacement therapy at this time. (2) Septic shock ICD Codes: A41.9 - Sepsis, unspecified organism; R65.21 - Severe sepsis with septic shock Plan: Continue antibiotics, supportive care. (3) Hypernatremia ICD Codes: E87.0 - Hyperosmolality and hypernatremia Plan: Could be iatrogenic, patient was on hypertonic fluids. Also will have to consider nephrogenic DI as she was on [place]. Currently she is oliguric, see below. I will change IVF to 1/4NS with 75 mEq of NaHCO3. Monitor. When tube feeds are started, start water flushes. It should be noted that the patient was polyuric starting on the 11. This could be secondary to nephrogenic DI, or also could have been due to osmotic diuresis resulting from hyperglycemia. (4) Hypocalcemia ICD Codes: E83.51 - Hypocalcemia Plan: Monitor. Obtain PTH and 25 hydroxy Vitamin D levels. Obtain phosphorus. Carefully replace. Obtain Amylase and Lipase. (5) Hypokalemia ICD Codes: E87.6 - Hypokalemia Plan: Replace carefully in the presence of oliguric renal failure. (6) Respiratory failure ICD Codes: J96.90 - Respiratory failure, unspecified, unspecified whether with hypoxia or hypercapnia Plan: On the ventilator, managed by molding machine setter. Assessment and Plan Thanks for the consult. Her prognosis is poor. I will follow. Bert Whiteside MD Jun 28, 2017 10:49
[2017-06-28] MEDS ORDERED: AZTREONAM INJ 1,000 MG in SODIUM CHLORIDE 0.9% INJ 100 ML IV SCH ×2 (11:00→17:00)
--- NOTE | 2017-06-28 11:12 | PD.PSY.CON ---
Provisional Diagnosis Admission Date Jun 21, 2017 at 23:20 History of Present Illness Service Psychiatry Consult Requested By Reason for Consult Medication adjustment Primary Care Physician Haja Dent DO Past Family Social History Coded Allergies: Penicillins (Verified Allergy, Unknown, Unknown , 06/21/17) Reported Medications Alprazolam (Alprazolam) 1 Mg Tab, 1 MG PO Q8H Y for ANXIETY, TAB 0 Refills 06/21/17 Omeprazole (Omeprazole) 20 Mg Tab, 20 MG PO DAILY, #30 TAB 0 Refills 06/21/17 Hydroxyzine Pamoate (Hydroxyzine Pamoate) 25 Mg Cap, 25 MG PO BID, CAP 0 Refills 06/21/17 Glimepiride (Glimepiride) 4 Mg Tab, 4 MG PO BIDAC for Blood Sugar Management, # 60 TAB 0 Refills 06/21/17 [place] Carbonate ER ([place] Carbonate ER) 450 Mg Tab, 450 MG PO BID, TAB 0 Refills 06/21/17 Benztropine (Benztropine) 0.5 Mg Tab, 1 MG PO HS, #30 TAB 0 Refills 06/21/17 Potassium Chloride ER (Klor-Con 10) 10 Meq Tab, 10 MEQ PO DAILY for Electrolyte Replacement, #30 TAB 0 Refills 06/21/17 Levothyroxine (Levothyroxine) 100 Mcg Tab, 100 MCG PO DAILY for Thyroid, #30 TAB 0 Refills 06/21/17 Ropinirole (Ropinirole) 4 Mg Tab, 4 MG PO HS, #30 TAB 0 Refills 06/21/17 Quetiapine (Quetiapine) 400 Mg Tab, 800 MG PO HS, #30 TAB 0 Refills 06/21/17 Trazodone (Trazodone) 150 Mg Tablet, 150 MG PO HS for Control Depression, #30 TAB 0 Refills 06/21/17 Doxepin (Doxepin) 100 Mg Cap, 100 MG PO HS, #30 CAP 0 Refills 06/21/17 Lisinopril (Lisinopril) 5 Mg Tab, 5 MG PO DAILY for Blood Pressure Management, # 30 TAB 0 Refills 06/21/17 Simvastatin (Simvastatin) 20 Mg Tab, 20 MG PO DAILY for Cholesterol Management, #30 TAB 0 Refills 06/21/17 Citalopram (Citalopram) 20 Mg Tab, 20 MG PO DAILY for Control Depression, #30 TAB 0 Refills 06/21/17 Current Medications Medications (Trade) Dose Ordered Sig/Robbi Route Start Time Stop Time Status Last Admin (NS Flush) 2 ml UNSCH PRN IV FLUSH 06/21/17 23:45 06/27/17 08:54 (NS Flush) 2 ml BID IV FLUSH 06/22/17 09:00 06/28/17 09:00 (Tylenol) 650 mg Q6H PRN PO 06/21/17 23:45 06/27/17 23:48 (Protonix Inj) 40 mg DAILY IV PUSH 06/22/17 09:00 06/27/17 08:54 (Zofran Inj) 4 mg Q6H PRN IV PUSH 06/21/17 23:45 06/28/17 04:30 (Heparin Inj) 5,000 units Q8H SQ 06/22/17 06:00 Future Hold 06/28/17 04:30 Miscellaneous Information 1 Q361D XX 06/21/17 23:45 (Chlorhexidine 2% Cloth) Taper DAILY@04 TOP 06/22/17 04:00 06/18/18 03:59 06/25/17 04:00 (Chlorhexidine 2% Cloth) 3 pack UNSCH PRN TOP 06/21/17 23:45 (Shell-Colace) 1 tab BID PO 06/22/17 09:00 06/27/17 19:31 (Milk Of Magnesia Liq) 30 ml Q12H PRN PO 06/21/17 23:45 (Senokot) 17.2 mg Q12H PRN PO 06/21/17 23:45 (Dulcolax Supp) 10 mg DAILY PRN RECTAL 06/21/17 23:45 (Lactulose Liq) 30 ml DAILY PRN PO 06/21/17 23:45 Potassium Chloride 100 ml @ 50 mls/hr Q2H PRN IV 06/21/17 23:45 Potassium Chloride 100 ml @ 50 mls/hr Q2H PRN IV 06/21/17 23:45 (K-Lyte Cl Eff) 50 meq UNSCH PRN PO 06/21/17 23:45 Potassium Chloride 100 ml @ 25 mls/hr UNSCH PRN IV 06/21/17 23:45 Potassium Chloride 100 ml @ 50 mls/hr Q2H PRN IV 06/21/17 23:45 Magnesium Sulfate 4 gm/Sodium Chloride 100 ml @ 50 mls/hr UNSCH PRN IV 06/21/17 23:45 (Mag-Ox) 800 mg UNSCH PRN PO 06/21/17 23:45 Magnesium Sulfate 2 gm/Sodium Chloride 100 ml @ 50 mls/hr UNSCH PRN IV 06/21/17 23:45 (K-Phos) 2,000 mg Q4H PRN PO 06/21/17 23:45 Sodium Phosphate 30 mmol/Sodium Chloride 250 ml @ 42 mls/hr UNSCH PRN IV 06/21/17 23:45 (K-Phos) 2,000 mg UNSCH PRN PO/TUBE 06/21/17 23:45 Potassium Phosphate 30 mmol/ Sodium Chloride 260 ml @ 42 mls/hr UNSCH PRN IV 06/21/17 23:45 (SoluMEDROL INJ) 40 mg Q12HR IV PUSH 06/22/17 09:00 06/28/17 10:26 (Synthroid) 100 mcg DAILY@0700 PO 06/22/17 07:00 06/27/17 06:12 (Pravachol) 40 mg DAILY PO 06/22/17 09:00 06/27/17 08:54 Pharmacy Profile Note 0 ml @ 0 mls/hr UNSCH OTHER 06/22/17 01:00 Metronidazole 100 ml @ 100 mls/hr Q8H IV 06/22/17 02:00 06/28/17 01:09 Propofol 100 ml @ 4.5 mls/hr TITRATE PRN IV 06/22/17 07:15 06/27/17 22:43 (Peridex 0.12% Liq) 15 ml BID@08,20 MT 06/22/17 08:00 06/27/17 19:31 (Duoneb Neb) 1 ampule Q2HR NEB PRN NEB 06/22/17 08:00 (Mycostatin Powder) 1 applic Q12HR TOPICAL 06/23/17 14:30 06/28/17 10:35 (Roxicodone Intensol Liq) 10 mg Q6H PO 06/24/17 10:00 06/27/17 22:42 (D50w (Vial) Inj) 25 ml UNSCH PRN IV PUSH 06/24/17 09:30 (Tenex) 2 mg Q12HR PO 06/24/17 09:30 06/27/17 19:32 (Duoneb Neb) 1 ampule Q6HR WHILE AWAKE NEB NEB 06/26/17 08:00 06/27/17 19:50 Insulin Human Regular 100 units/ Sodium Chloride 100 ml @ 3 mls/hr TITRATE IV 06/27/17 12:00 06/28/17 05:54 (D50w (Vial) Inj) 50 ml UNSCH PRN IV PUSH 06/27/17 12:00 Micafungin Sodium 150 mg/Sodium Chloride 100 ml @ 100 mls/hr Q24H IV 06/27/17 20:00 06/27/17 20:00 Phenylephrine HCl 40 mg/Dextrose 500 ml @ 30 mls/hr TITRATE PRN IV 06/28/17 05:00 06/28/17 06:29 (Brethine Inj) 1 mg UNSCH PRN SQ 06/28/17 05:00 Vasopressin 40 units/Dextrose 100 ml @ 1.5 mls/hr Q24H IV 06/28/17 08:06 Levofloxacin/ Dextrose 100 ml @ 100 mls/hr Q48H IV 06/28/17 10:00 06/28/17 10:27 Aztreonam 1000 mg/ Sodium Chloride 100 ml @ 200 mls/hr Q6H IV 06/28/17 11:00 Pantoprazole Sodium 80 mg/ Sodium Chloride 100 ml @ 10 mls/hr Q10H IV 06/28/17 11:14 UNV Sodium Chloride 38.5 meq/Sodium Bicarbonate 75 meq/Sterile Water 1,084.625 ml @ 84 mls/hr [id number] IV 06/28/17 10:30 Calcium Gluconate 1 gm/Dextrose 110 ml @ 110 mls/hr ONCE ONCE IV 06/28/17 10:30 06/28/17 11:29 Physical Exam Vital Signs Vital Signs Date Time Temp Pulse Resp B/P (MAP) Pulse Ox O2 Delivery O2 Flow Rate FiO2 06/28/17 10:25 96 100 06/28/17 06:29 133 82/50 06/28/17 04:00 99.9 06/28/17 00:00 24 I/O 06/28/17 06/28/17 06/29/17 08:00 16:00 00:00 Intake Total 2299 ml Output Total 700 ml Balance 1599 ml Lab Results Test 06/27/17 13:20 06/27/17 19:50 06/28/17 04:43 06/28/17 04:50 Total Bilirubin 0.3 MG/DL 0.3 MG/DL 0.3 MG/DL Direct Bilirubin 0.1 MG/DL Indirect Bilirubin 0.2 MG/DL Aspartate Amino Transf (AST/SGOT) 37 U/L 45 U/L 58 U/L Alanine Aminotransferase (ALT/SGPT) 37 U/L 40 U/L 37 U/L Alkaline Phosphatase 102 U/L 92 U/L 76 U/L Total Protein 7.2 GM/DL 6.9 GM/DL 5.5 GM/DL Albumin 3.3 GM/DL 3.4 GM/DL 2.5 GM/DL Lipase 53 U/L Procalcitonin 1.02 ng/mL Blood Urea Nitrogen 59 MG/DL 67 MG/DL Creatinine 2.49 MG/DL 3.41 MG/DL Random Glucose 458 MG/DL 326 MG/DL Calcium Level 7.4 MG/DL 5.8 MG/DL Sodium Level 147 MEQ/L 153 MEQ/L Potassium Level 3.6 MEQ/L 2.9 MEQ/L Chloride Level 115 MEQ/L 124 MEQ/L Carbon Dioxide Level 21.3 MEQ/L 15.8 MEQ/L Anion Gap 11 MEQ/L 13 MEQ/L Estimat Glomerular Filtration Rate 20 ML/MIN 14 ML/MIN Protein Corrected Calcium 7.5 MG/DL 6.5 MG/DL Total Creatine Kinase 565 U/L Creatine Kinase MB 1.5 NG/ML Creatine Kinase MB % 0.3 % Blood Gas Puncture Site ART LINE Blood Gas Patient Temperature 98.6 Blood Gas HCO3 17 mmol/L Blood Gas Base Excess -9.0 mmol/L Blood Gas Oxygen Saturation 90 % Arterial Blood pH 7.22 Arterial Blood Partial Pressure CO2 44 mmHg Arterial Blood Partial Pressure O2 70 mmHg Arterial Blood Oxygen Content 20.5 Vol % Arterial Blood Carboxyhemoglobin 0.9 % Arterial Blood Methemoglobin 1.5 % Blood Gas Hemoglobin 16.2 G/DL Oxygen Delivery Device VENT Blood Gas Ventilator Setting SEE COMMENTS Blood Gas Inspired Oxygen 65 % White Blood Count 23.7 TH/MM3 Red Blood Count 4.92 MIL/MM3 Hemoglobin 14.9 GM/DL Hematocrit 48.1 % Mean Corpuscular Volume 97.8 FL Mean Corpuscular Hemoglobin 30.2 PG Mean Corpuscular Hemoglobin Concent 30.9 % Red Cell Distribution Width 14.6 % Platelet Count 216 TH/MM3 Mean Platelet Volume 9.7 FL Neutrophils (%) (Auto) 79.3 % Lymphocytes (%) (Auto) 12.4 % Monocytes (%) (Auto) 7.9 % Eosinophils (%) (Auto) 0.0 % Basophils (%) (Auto) 0.4 % Neutrophils # (Auto) 19.7 TH/MM3 Lymphocytes # (Auto) 3.1 TH/MM3 Monocytes # (Auto) 2.0 TH/MM3 Eosinophils # (Auto) 0.0 TH/MM3 Basophils # (Auto) 0.1 TH/MM3 Differential Total Cells Counted 100 Neutrophils % (Manual) 75 % Band Neutrophils % 6 % Lymphocytes % 11 % Monocytes % 7 % Neutrophils # (Manual) 19.4 TH/MM3 Myelocytes 1 % Differential Comment FINAL DIFF MANUAL Platelet Estimate NORMAL Platelet Morphology Comment NORMAL B-Hydroxybutyrate 0.18 MMOL/L Test 06/28/17 06:00 06/28/17 07:15 Lactic Acid Level 2.4 mmol/L Troponin I 4.75 NG/ML Blood Gas Puncture Site RT RADIAL Blood Gas Patient Temperature 98.6 Blood Gas HCO3 18 mmol/L Blood Gas Base Excess -8.0 mmol/L Blood Gas Oxygen Saturation 87 % Arterial Blood pH 7.22 Arterial Blood Partial Pressure CO2 46 mmHg Arterial Blood Partial Pressure O2 61 mmHg Arterial Blood Oxygen Content 18.7 Vol % Arterial Blood Carboxyhemoglobin 0.9 % Arterial Blood Methemoglobin 1.6 % Blood Gas Hemoglobin 15.3 G/DL Oxygen Delivery Device VENTILATOR Blood Gas Ventilator Setting A/C 550/18/8PEEP Blood Gas Inspired Oxygen 65 % Date/Time Source Procedure Growth Status 06/27/17 12:45 Blood Peripheral Aerobic Blood Culture - Preliminary Gram Positive Cocci Resulted 06/27/17 12:45 Blood Peripheral Anaerobic Blood Culture - Preliminary NO GROWTH IN 1 DAY Resulted 06/27/17 05:55 Sputum Endotracheal Gram Stain - Final Resulted 06/27/17 05:55 Sputum Endotracheal Sputum Culture Pending Resulted 06/27/17 05:55 Urine Random Urine Urine Culture Pending Received Assessment & Plan Problem List: (1) Respiratory acidosis ICD Codes: E87.2 - Acidosis Status: Acute Assessment & Plan: Patient consulted to psychiatry due to psychiatric history, multiple psychotropics, suspected NMS vs neuroleptic malignant syndrome vs lithium intoxication. Patient could not be evaluated today because she coded this morning and is now intubated. I spoke personally with Dr. Gonzalez, recommended holding all psychotropics. Will reconsult once the patient is more stable. Assessment & Plan Estimated LOS: Regulo Longoria MD Jun 28, 2017 11:12
[2017-06-28] MEDS ORDERED: PANTOPRAZOLE INJ 80 MG in SODIUM CHLORIDE 0.9% INJ 100 ML IV SCH (11:14)
[2017-06-28] MEDS: CHLORHEXIDINE 0.12% (ORAL KIT) 15 ML CUP MT SCH (11:37)
--- NOTE | 2017-06-28 11:41 | PD.CONS ---
HPI History of Present Illness This is a 56 year old female that presented to the hospital by EMS from [facility] on 06/21/17 with c/o vomiting x 3 days with associated weakness and mild confusion. No blood in emesis or stool was noted at this time. EMS noted Accu-Check of 350. Patient was noted to have severe respiratory acidosis and was intubated on admission. PMH significant for DM, HTN , asthma/COPD, dyslipidemia, RBBB, morbid obesity, anxiety, depression, and bipolar disorder. Patient had episode of cardiac arrest today and is s/p CPR with ROSC at 5 minutes. GI was consulted for upper GI bleed as noted with reddish-brown oral secretions. (Juanis Castaneda) PFSH Past Medical History Morbid obesity DM Bipolar illness COPD HTN Hypothyroidism (Juanis Castaneda) Coded Allergies: Penicillins (Verified Allergy, Unknown, Unknown , 06/21/17) Medications Current Medications Medications (Trade) Dose Ordered Sig/Robbi Route PRN Reason Start Time Stop Time Status Last Admin Dose Admin Sodium Chloride (NS Flush) 2 ml UNSCH PRN IV FLUSH FLUSH AFTER USING IV ACCESS 06/21/17 23:45 06/27/17 08:54 Sodium Chloride (NS Flush) 2 ml BID IV FLUSH 06/22/17 09:00 06/28/17 09:00 Acetaminophen (Tylenol) 650 mg Q6H PRN PO PAIN 1-10 AND/OR FEVER >101F 06/21/17 23:45 06/27/17 23:48 Pantoprazole Sodium (Protonix Inj) 40 mg DAILY IV PUSH 06/22/17 09:00 06/27/17 08:54 Ondansetron HCl (Zofran Inj) 4 mg Q6H PRN IV PUSH NAUSEA OR VOMITING 06/21/17 23:45 06/28/17 04:30 Heparin Sodium (Porcine) (Heparin Inj) 5,000 units Q8H SQ 06/22/17 06:00 Future Hold 06/28/17 04:30 Miscellaneous Information 1 [id number] XX 06/21/17 23:45 Chlorhexidine Gluconate (Chlorhexidine 2% Cloth) Taper DAILY@04 TOP 06/22/17 04:00 06/18/18 03:59 06/25/17 04:00 Chlorhexidine Gluconate (Chlorhexidine 2% Cloth) 3 pack UNSCH PRN TOP HYGIENIC CARE 06/21/17 23:45 Senna/Docusate Sodium (Shell-Colace) 1 tab BID PO 06/22/17 09:00 06/27/17 19:31 Magnesium Hydroxide (Milk Of Magnesia Liq) 30 ml Q12H PRN PO MILD - MODERATE CONSTIPATION 06/21/17 23:45 Sennosides (Senokot) 17.2 mg Q12H PRN PO MODERATE - SEVERE CONSTIPATION 06/21/17 23:45 Bisacodyl (Dulcolax Supp) 10 mg DAILY PRN RECTAL SEVERE CONSITIPATION 06/21/17 23:45 Lactulose (Lactulose Liq) 30 ml DAILY PRN PO SEVERE CONSITIPATION 06/21/17 23:45 Potassium Chloride 100 ml @ 50 mls/hr Q2H PRN IV For Potassium 2.8 - 3.2 mEq/L 06/21/17 23:45 Potassium Chloride 100 ml @ 50 mls/hr Q2H PRN IV For Potassium 2.8 - 3.2 mEq/L 06/21/17 23:45 Potassium Bicarb/ Potassium Chloride (K-Lyte Cl Eff) 50 meq UNSCH PRN PO For Potassium 3.3 - 3.5 mEq/L 06/21/17 23:45 Potassium Chloride 100 ml @ 25 mls/hr UNSCH PRN IV For Potassium 3.3 - 3.5 mEq/L 06/21/17 23:45 Potassium Chloride 100 ml @ 50 mls/hr Q2H PRN IV For Potassium 3.3 - 3.5 mEq/L 06/21/17 23:45 Magnesium Sulfate 4 gm/Sodium Chloride 100 ml @ 50 mls/hr UNSCH PRN IV For Magnesium 0.9 - 1.1 mg/dL 06/21/17 23:45 Magnesium Oxide (Mag-Ox) 800 mg UNSCH PRN PO For Magnesium 1.2 - 1.6 mg/dL 06/21/17 23:45 Magnesium Sulfate 2 gm/Sodium Chloride 100 ml @ 50 mls/hr UNSCH PRN IV For Magnesium 1.2 - 1.6 mg/dL 06/21/17 23:45 Potassium Phosphate (K-Phos) 2,000 mg Q4H PRN PO For Phosphorus < 2.5 mg/dL 06/21/17 23:45 Sodium Phosphate 30 mmol/Sodium Chloride 250 ml @ 42 mls/hr UNSCH PRN IV For Phosphorus < 2.5 mg/dL 06/21/17 23:45 Potassium Phosphate (K-Phos) 2,000 mg UNSCH PRN PO/TUBE SEE LABEL COMMENTS 06/21/17 23:45 Potassium Phosphate 30 mmol/ Sodium Chloride 260 ml @ 42 mls/hr UNSCH PRN IV SEE LABEL COMMENTS 06/21/17 23:45 Methylprednisolone Sodium Succinate (SoluMEDROL INJ) 40 mg Q12HR IV PUSH 06/22/17 09:00 06/28/17 10:26 Levothyroxine Sodium (Synthroid) 100 mcg DAILY@0700 PO 06/22/17 07:00 06/27/17 06:12 Pravastatin Sodium (Pravachol) 40 mg DAILY PO 06/22/17 09:00 06/27/17 08:54 Pharmacy Profile Note 0 ml @ 0 mls/hr UNSCH OTHER 06/22/17 01:00 Metronidazole 100 ml @ 100 mls/hr Q8H IV 06/22/17 02:00 06/28/17 01:09 Propofol 100 ml @ 4.5 mls/hr TITRATE PRN IV SEDATION 06/22/17 07:15 06/27/17 22:43 Chlorhexidine Gluconate (Peridex 0.12% Liq) 15 ml BID@08,20 MT 06/22/17 08:00 06/27/17 19:31 Albuterol/ Ipratropium (Duoneb Neb) 1 ampule Q2HR NEB PRN NEB WHEEZING 06/22/17 08:00 Nystatin (Mycostatin Powder) 1 applic Q12HR TOPICAL 06/23/17 14:30 06/28/17 10:35 Oxycodone HCl (Roxicodone Intensol Liq) 10 mg Q6H PO 06/24/17 10:00 06/27/17 22:42 Dextrose (D50w (Vial) Inj) 25 ml UNSCH PRN IV PUSH HYPOGLYCEMIA-SEE COMMENTS 06/24/17 09:30 Guanfacine HCl (Tenex) 2 mg Q12HR PO 06/24/17 09:30 06/27/17 19:32 Albuterol/ Ipratropium (Duoneb Neb) 1 ampule Q6HR WHILE AWAKE NEB NEB 06/26/17 08:00 06/27/17 19:50 Insulin Human Regular 100 units/ Sodium Chloride 100 ml @ 3 mls/hr TITRATE IV 06/27/17 12:00 06/28/17 05:54 Dextrose (D50w (Vial) Inj) 50 ml UNSCH PRN IV PUSH SEE LABEL COMMENTS 06/27/17 12:00 Micafungin Sodium 150 mg/Sodium Chloride 100 ml @ 100 mls/hr Q24H IV 06/27/17 20:00 06/27/17 20:00 Phenylephrine HCl 40 mg/Dextrose 500 ml @ 30 mls/hr TITRATE PRN IV Blood pressure management 06/28/17 05:00 06/28/17 06:29 Terbutaline Sulfate (Brethine Inj) 1 mg UNSCH PRN SQ For Extravasation 06/28/17 05:00 Vasopressin 40 units/Dextrose 100 ml @ 1.5 mls/hr Q24H IV 06/28/17 08:06 Levofloxacin/ Dextrose 100 ml @ 100 mls/hr Q48H IV 06/28/17 10:00 06/28/17 10:27 Aztreonam 1000 mg/ Sodium Chloride 100 ml @ 200 mls/hr Q6H IV 06/28/17 11:00 Pantoprazole Sodium 80 mg/ Sodium Chloride 100 ml @ 10 mls/hr Q10H IV 06/28/17 11:14 Sodium Chloride 38.5 meq/Sodium Bicarbonate 75 meq/Sterile Water 1,084.625 ml @ 84 mls/hr [id number] IV 06/28/17 10:30 Calcium Gluconate 1 gm/Dextrose 110 ml @ 110 mls/hr ONCE ONCE IV 06/28/17 10:30 06/28/17 11:29 Family History Unable to obtain Social History PER EMR Tobacco: None ETOH: Occasional (Juanis Castaneda) Review of Systems ROS Unable to assess (Juanis Castaneda) GI Exam Vitals I&O Vital Signs Date Time Temp Pulse Resp B/P (MAP) Pulse Ox O2 Delivery O2 Flow Rate FiO2 06/28/17 10:25 96 100 06/28/17 08:00 94 100 06/28/17 06:30 94 65 06/28/17 06:29 133 82/50 06/28/17 04:32 120 50/35 06/28/17 04:16 94 65 06/28/17 04:00 99.9 06/28/17 04:00 65 06/28/17 04:00 134 06/28/17 02:16 96 65 06/28/17 02:00 118 06/28/17 00:08 94 65 06/28/17 00:00 99.9 115 24 89/50 (63) 95 104/52 (69) 06/28/17 00:00 65 06/28/17 00:00 115 06/27/17 22:00 91 06/27/17 20:00 97.4 117 23 107/56 (73) 97 135/70 (91) 06/27/17 20:00 117 06/27/17 20:00 65 06/27/17 19:51 94 65 06/27/17 18:00 117 06/27/17 17:15 92 65 06/27/17 16:00 104 06/27/17 16:00 102.9 106 22 88/52 (64) 94 94/74 (81) 06/27/17 16:00 65 06/27/17 14:00 114 06/27/17 13:40 102.1 107 22 91/58 (69) 94 69/57 (61) 06/27/17 12:00 107 06/27/17 12:00 65 06/27/17 11:55 95 65 I/O 06/27/17 06/27/17 06/27/17 06/28/17 06/28/17 06/28/17 07:00 15:00 23:00 07:00 15:00 23:00 Intake Total 450 ml 1129 ml 2835 ml 2299 ml Output Total 2100 ml 1525 ml 700 ml Balance -1650 ml 1129 ml 1310 ml 1599 ml Intake Oral 0 ml IV Total 450 ml 1129 ml 1900 ml 2299 ml Tube Feeding 685 ml Other 250 ml Output Urine Total 2100 ml 1525 ml 500 ml Gastric Drainage Total 200 ml # Bowel Movements 0 0 Imaging Last Impressions Abdomen X-Ray 06/28/17 0600 Signed Impressions: Service Date/Time: Wednesday, June 28, 2017 05:37 - CONCLUSION: Extremely limited exam due to patient's body habitus. Anatomic detail is very difficult to delineate. Dami Cm MD Chest X-Ray 06/28/17 0000 Signed Impressions: Service Date/Time: Wednesday, June 28, 2017 05:48 - CONCLUSION: 1. Interval placement of a left IJ central venous catheter with the tip projecting over the central venous system. No pneumothorax 2. Endotracheal tube has been significantly pulled back with the tip now in the cervical esophagus. This should probably be advanced 5-8 cm. 3. Improving aeration in the left base. Minimal atelectatic changes in the right base. Dami Cm MD Abdomen/Pelvis CT 06/28/17 0000 Signed Impressions: Service Date/Time: Wednesday, June 28, 2017 08:09 - CONCLUSION: 1. Significant bowel dilatation is not seen. Oral and intravenous contrast was not given for this exam. 2. Hepatic steatosis. 3. Multiple renal masses likely related to cysts including an 18 cm mass at the inferior left kidney. Ideally, these will be further evaluated with a contrast-enhanced CT or MRI examination. This could be performed as an outpatient on a nonemergent basis. 4. Right lower lobe consolidation. 5. Small 3 mm nonobstructing left renal stone. Isauro Streeter MD CT Angiography 06/23/17 0000 Signed Impressions: Service Date/Time: Friday, June 23, 2017 15:11 - CONCLUSION: 1. Endotracheal tube has its tip in the right mainstem bronchus. This should be pulled back at least 3 cm from more optimal positioning. 2. No large pulmonary emboli identified on the suboptimal CT pulmonary angiogram due to poor cardiac output. 3. Posterior bibasilar atelectasis and/or infiltrates. 4. Enlarged fatty liver. 5. Mild splenomegaly. 6. Cardiomegaly. Preston Montoya MD Head CT [id number]/21/[id number] Signed Impressions: Service Date/Time: Wednesday, June 21, 2017 21:43 - CONCLUSION: No acute disease. Kang Coronado MD Laboratory Test 06/27/17 13:20 06/27/17 19:50 06/28/17 04:43 06/28/17 04:50 Total Bilirubin 0.3 MG/DL 0.3 MG/DL 0.3 MG/DL Direct Bilirubin 0.1 MG/DL Indirect Bilirubin 0.2 MG/DL Aspartate Amino Transf (AST/SGOT) 37 U/L 45 U/L 58 U/L Alanine Aminotransferase (ALT/SGPT) 37 U/L 40 U/L 37 U/L Alkaline Phosphatase 102 U/L 92 U/L 76 U/L Total Protein 7.2 GM/DL 6.9 GM/DL 5.5 GM/DL Albumin 3.3 GM/DL 3.4 GM/DL 2.5 GM/DL Lipase 53 U/L Procalcitonin 1.02 ng/mL Blood Urea Nitrogen 59 MG/DL 67 MG/DL Creatinine 2.49 MG/DL 3.41 MG/DL Random Glucose 458 MG/DL 326 MG/DL Calcium Level 7.4 MG/DL 5.8 MG/DL Sodium Level 147 MEQ/L 153 MEQ/L Potassium Level 3.6 MEQ/L 2.9 MEQ/L Chloride Level 115 MEQ/L 124 MEQ/L Carbon Dioxide Level 21.3 MEQ/L 15.8 MEQ/L Anion Gap 11 MEQ/L 13 MEQ/L Estimat Glomerular Filtration Rate 20 ML/MIN 14 ML/MIN Protein Corrected Calcium 7.5 MG/DL 6.5 MG/DL Total Creatine Kinase 565 U/L Creatine Kinase MB 1.5 NG/ML Creatine Kinase MB % 0.3 % Blood Gas Puncture Site ART LINE Blood Gas Patient Temperature 98.6 Blood Gas HCO3 17 mmol/L Blood Gas Base Excess -9.0 mmol/L Blood Gas Oxygen Saturation 90 % Arterial Blood pH 7.22 Arterial Blood Partial Pressure CO2 44 mmHg Arterial Blood Partial Pressure O2 70 mmHg Arterial Blood Oxygen Content 20.5 Vol % Arterial Blood Carboxyhemoglobin 0.9 % Arterial Blood Methemoglobin 1.5 % Blood Gas Hemoglobin 16.2 G/DL Oxygen Delivery Device VENT Blood Gas Ventilator Setting SEE COMMENTS Blood Gas Inspired Oxygen 65 % White Blood Count 23.7 TH/MM3 Red Blood Count 4.92 MIL/MM3 Hemoglobin 14.9 GM/DL Hematocrit 48.1 % Mean Corpuscular Volume 97.8 FL Mean Corpuscular Hemoglobin 30.2 PG Mean Corpuscular Hemoglobin Concent 30.9 % Red Cell Distribution Width 14.6 % Platelet Count 216 TH/MM3 Mean Platelet Volume 9.7 FL Neutrophils (%) (Auto) 79.3 % Lymphocytes (%) (Auto) 12.4 % Monocytes (%) (Auto) 7.9 % Eosinophils (%) (Auto) 0.0 % Basophils (%) (Auto) 0.4 % Neutrophils # (Auto) 19.7 TH/MM3 Lymphocytes # (Auto) 3.1 TH/MM3 Monocytes # (Auto) 2.0 TH/MM3 Eosinophils # (Auto) 0.0 TH/MM3 Basophils # (Auto) 0.1 TH/MM3 Differential Total Cells Counted 100 Neutrophils % (Manual) 75 % Band Neutrophils % 6 % Lymphocytes % 11 % Monocytes % 7 % Neutrophils # (Manual) 19.4 TH/MM3 Myelocytes 1 % Differential Comment FINAL DIFF MANUAL Platelet Estimate NORMAL Platelet Morphology Comment NORMAL B-Hydroxybutyrate 0.18 MMOL/L Test 06/28/17 06:00 06/28/17 07:15 Lactic Acid Level 2.4 mmol/L Troponin I 4.75 NG/ML Blood Gas Puncture Site RT RADIAL Blood Gas Patient Temperature 98.6 Blood Gas HCO3 18 mmol/L Blood Gas Base Excess -8.0 mmol/L Blood Gas Oxygen Saturation 87 % Arterial Blood pH 7.22 Arterial Blood Partial Pressure CO2 46 mmHg Arterial Blood Partial Pressure O2 61 mmHg Arterial Blood Oxygen Content 18.7 Vol % Arterial Blood Carboxyhemoglobin 0.9 % Arterial Blood Methemoglobin 1.6 % Blood Gas Hemoglobin 15.3 G/DL Oxygen Delivery Device VENTILATOR Blood Gas Ventilator Setting A/C 550/18/8PEEP Blood Gas Inspired Oxygen 65 % Date/Time Source Procedure Growth Status 06/27/17 12:45 Blood Peripheral Aerobic Blood Culture - Preliminary Gram Positive Cocci Resulted 06/27/17 12:45 Blood Peripheral Anaerobic Blood Culture - Preliminary NO GROWTH IN 1 DAY Resulted 06/27/17 05:55 Sputum Endotracheal Gram Stain - Final Resulted 06/27/17 05:55 Sputum Endotracheal Sputum Culture Pending Resulted 06/27/17 05:55 Urine Random Urine Urine Culture Pending Received Physical Examination HEENT: Normocephalic; atraumatic; no jaundice. NECK: Neck is supple. CHEST: Bilateral wheezing. Vented breath sounds heard bilaterally. CARDIAC: Tachycardic ABDOMEN: Soft, obese, nontender; no hepatosplenomegaly; bowel sounds are present EXTREMITIES: Dependent edema SKIN: Pale MEDICAL VAN DRIVER: Sedated (Juanis Castaneda) Assessment and Plan Plan ASSESSMENT: Upper GI bleed, reddish-brown oral secretions noted today. HH today 14.9/48.1. Patient is s/p cardiac arrest today and is currently unstable. Cardiology consulted. PLAN: - Will consider EGD if patient becomes stable - Protonix IV - Monitor labs - Supportive care - Further recommendations to follow based on results of above. Patient seen and examined by Dr. Xie and myself and this note is written on his behalf. (Juanis Castaneda) Physician Comments Seen and examined with PIPE INSULATOR, no evidence of active/massive gi bleed as the cause for her rapid clinical deterioration. Probable septic vs. cardio pulmonary shock. NG with about 300cc of fluid which is blood tinged. NO bleeding through the rectum.She is on maximal pressor and ventilatory support. Discussed role of endoscopy in this setting with pts. family and Dr. Gonzalez at the bedside. For now no benefit to scoping,GI bleed appears to be a secondary issue. will see how she does clinically. If any evidence of active bleeding will proceed with gi interventions. All agreeable with this approach. Protonix ivpb. Overall prognosis dismal. Will follow, thank you (Jordyn Xie MD) Juanis Castaneda Jun 28, 2017 11:41 Jordyn Xie MD Jun 28, 2017 12:28
[2017-06-28 11:42] LABS: HEMATOCRIT 45.7 % (35.0-46.0)
[2017-06-28 11:43] LABS: REVIEW FLAG FINAL
[2017-06-28 11:52] LABS: INTERNATIONAL NORMALIZED RATIO 1.5 RATIO; PROTHROMBIN TIME - PATIENT 16.7 SEC (9.8-11.6)
[2017-06-28 12:07] LABS: BLOOD GAS BASE EXCESS -6.5 mmol/L (-2-2); BLOOD GAS CARBOXYHEMOGLOBIN 0.7 % (0-4); BLOOD GAS HCO3 21 mmol/L (22-26); BLOOD GAS METHEMOGLOBIN 1.6 % (0-2); BLOOD GAS O2 HGB SATURATION 91 % (90-100); BLOOD GAS OXYGEN CONTENT 18.1 Vol % (12.0-20.0); BLOOD GAS PCO2 58 mmHg (38-42); BLOOD GAS PO2 76 mmHg (61-120); BLOOD GAS TOTAL HGB 14.1 G/DL (12.0-16.0); TEMP CORR TO 98.6
[2017-06-28 12:08] LABS: CRITICAL VALUE YES; DRAW SITE ART LINE; FIO2 100 %; OXYGEN DEVICE VENTILATOR; STAT NO; VENT SETTINGS A/C550/20/8PEEP
--- NOTE | 2017-06-28 12:42 | EKG ---
Date Performed: 06/28/2017 Time Performed: 09:23:08 PTAGE: 56 years EKG: Probable sinus tachycardia. Right axis deviation Right bundle branch block Inferior infarct - age undetermined Lateral ST-T changes suggest myocardial injury/ischemia Low QRS voltages in preco rdial leads Abnormal ECG NO PREVIOUS TRACING DOCTOR: Ronak Espana Interpretating Date/Time 06/28/2017 12:40:54
--- NOTE | 2017-06-28 12:45 | EKG ---
Date Performed: 06/28/2017 Time Performed: 05:55:52 PTAGE: 56 years EKG: Probable sinus tachycardia. Possible left atrial abnormality Right axis deviation Right bun dle branch block Inferior infarct - age undetermined Poor R wave progression Abnormal ECG NO PREVIOUS TRACING DOCTOR: Ronak Espana Interpretating Date/Time 06/28/2017 12:44:28
--- NOTE | 2017-06-28 12:52 | MB ---
cc: ENMANUEL HAMILTON DO DATE OF CONSULTATION: 06/28/2017 REASON FOR CONSULTATION: Cardiac arrest. HISTORY OF PRESENT ILLNESS Hafsa Beard is a 56-year-old female who originally presented to [facility] on June 21, 2017 due to vomiting and generalized weakness, as well as mild confusion for three days. During her initial admission, it appears that she was intubated the next morning due to agitation and decreased mentation as well as confusion. Since that time, she has been unable to be weaned off the vent. This morning it appears that the patient had a drop in her blood pressures and all sedatives discontinued. Per the critical care team, the patient appeared pale and she was given two liters of Crystalloid. She also was noted to have a temperature of 103.5 and her NG output was coffee-ground emesis of around [address] was ordered and while down there, the patient became hypotensive and went into asystole. In talking with critical care, it appears the patient went bradycardic and then into asystole. CPR was initiated with return of spontaneous circulation at 5 minutes. The patient received three doses of epinephrine in that time period. The patient continued to have reddish brown fulminant oral secretions. An EKG was done at around 06:00 a.m. that shows sinus tachycardia, right bundle branch pattern, severe right axis deviation, with possible ST elevations in the anterior lateral portion. I was asked to see the patient due to cardiac arrest as well as possible elevation on EKG. PAST MEDICAL HISTORY 1. Morbid obesity. 2. Type 2 diabetes mellitus 3. Bipolar illness. 4. COPD 5. Hypertension 6. Hypothyroidism. PAST SURGICAL HISTORY 1. Appendectomy. 2. Cholecystectomy. 3. Hysterectomy 4. Tonsillectomy. ALLERGIES Penicillin. MEDICATIONS 1. Zocor 20 mg daily 2. Lisinopril 5 mg daily 3. Lexapro 20 mg daily 4. Doxepin and 100 mg every night 5. Trazodone 150 mg every night 6. Quetiapine 800 mg every night 7. Xanax 1 mg every 8 hours as needed for anxiety 8. Hydroxyzine 25 mg b.i.d. 9. [place] 450 mg b.i.d. 10. Benzatropine 1 milligrams every night. 11. Ropinirole 4 mg every night 12. Potassium 10 mEq daily 13. Omeprazole 20 mg daily 14. Glimepiride 4 mg b.i.d. 15. Synthroid 100 mcg daily. FAMILY HISTORY Unable to obtain at this time. SOCIAL HISTORY The patient does not smoke. She occasionally uses alcohol per the chart. PHYSICAL EXAMINATION Vital signs: Temperature 99.9, heart rate 130, blood pressure 85/50, respirations 22, pulse ox 96% on 100% on the ventilator. GENERAL: In general the patient is unresponsive on the ventilator, morbidly obese. Eyes: No scleral icterus. No injection or drainage. Mucous membranes moist. Neck: Supple. No JVD at 45 degrees. No carotid bruits heard bilaterally. Heart: Tachycardiac but regular. Positive first and second heart sounds. Lungs: Bilateral wheezing and rhonchi. Abdomen: Soft, obese, with no guarding noted. Extremities: No cyanosis or clubbing. Neurologic: Unable to obtain at this time. LABORATORY WORK: White blood cells 23.7, hemoglobin 14.9, hematocrit 48.1, platelets 216. Potassium 2.9, BUN 67, creatinine 3.41, lactic acid 2.4, troponin 4.75. Electrocardiogram: (June 28, 2017 at 09:23) sinus tachycardia 140 beats per minute, severe right axis deviation, right bundle branch block, possible inferior infarction age undetermined. IMPRESSION 1. Cardiac arrest which appears to be asystole in nature for which the patient received CPR for 5 minutes and three rounds of epinephrine. 2. Shock, possibly cardiogenic versus septic. 3. Hypotension secondary to shock. 4. Acute kidney injury on chronic kidney disease. 5. EKG showing right bundle branch block, right axis deviation. 6. Possible GI bleed with coffee-ground emesis of 300 cc this morning. 7. Fever of unknown cause. 8. Lactic acidosis. 9. Hypokalemia. 10. History of bipolar disorder. 11. History of depression. 12. Metabolic encephalopathy. 13. COPD. 14. Obesity hypoventilation syndrome. 15. Vent dependent respiratory failure. RECOMMENDATIONS 1. Ms. Glass appeared to have a cardiac arrest this morning which sounds like most likely she went into asystole and this may be due to hypotension , lactic acidosis or hypoxia. 2. After this episode she did have an EKG done which was read as possible ST elevation in the anterior leads. Review of this EKG shows possible injury type pattern although somewhat similar to her baseline right bundle-branch block pattern. Repeat EKG was done at bedside which showed similar to her previous with a right bundle-branch block and severe right axis deviation. 3. At the time of seeing the patient a stat echo was ordered, being done at the bedside. Preliminarily the ejection fraction looks relatively normal, possibly hyperdynamic and although full wall motion abnormality cannot be determine, it appears that the anterior and septal ann appear to be moving which would go against an acute ST elevation myocardial infarction in the anterior portion of the EKG. 4. The patient is overall not a candidate for cardiac catheterization due to what appears to be coffee-ground emesis of 300 cc this morning. She was unable to be placed on aspirin, heparin or do any type of platelet therapy. 5. We will continue her on medical management and further assess her hospitalization if an ischemic evaluation needs to be done. 6. This was further discussed with Dr. Gonzalez from critical care and nursing staff. 7. She does have hypokalemia and this was discussed with critical care about replacing. 8. We will continue supportive care as possible. Thank you for allowing me to see Hafsa Woodward. If there are any questions, please do not hesitate to call. Enmanuel Hamilton DO VGP/CHERYLE /11:04 AM /12:13 PM ROSA ISELA
--- NOTE | 2017-06-28 12:59 | EKG ---
Date Performed: 06/27/2017 Time Performed: 12:30:50 PTAGE: 56 years EKG: SINUS TACHYCARDIA WITH SHORT MA INTERVAL RIGHT AXIS DEVIATION RIGHT BUNDLE BRANCH BLOCK ABN ORMAL ECG PREVIOUS TRACING : 06/21/2017 22.10 No significant change from previous tracing noted. DOCTOR: Ronak Espana Interpretating Date/Time 06/28/2017 12:58:14
[2017-06-28] MEDS ORDERED: NOREPINEPHRINE 4 MG/4 ML AMP ONE ×2 (13:05→13:06)
--- NOTE | 2017-06-28 14:15 | PD.ID.CON ---
History of Present Illness Service ID Consult Requested By Dr Box Reason for Consult sepsis Primary Care Physician Haja Dent, DO Diagnoses: History of Present Illness Pt was seen around a 1100 today Chart was reviwed dw Dr Gonzalez and RN History obtained from mother and sister a@ b/s Pt is a morbidly obese diabetic female with COPD on home O2 who presetned to [facility] with COPD exacertbation and was transferredto the main hospital Pt was intubated 2nd day of admission and remained intubated Marked clinical deterioration yday She developped fever, progressive hypotension and acute renal failure She coded in CT, CT showed multiple kidney cysts including one 18 cm R kidney cyst Pt remained unstab;e at the time I saw her, nearly maxed out on pressors and on broad spectrum abx On high vent settings, including 100% FiO2 Her troponing went from nl to > 4 technology education teacher eval'd her earlier today but could not offer any treatment 2/2 active concommitancnt GI bleeding Pt was on broad spectrum abx (azactam, vancomycin and flagyl) since 06/22 and Micafungin was added today Review of Systems ROS Limitations: Clinical Condition, Intubated, Unresponsive Past Family Social History Allergies: Coded Allergies: Penicillins (Verified Allergy, Unknown, Unknown , 06/21/17) Past Medical History morbid obesity DM COPDsever bl knee arthritis with limited mobility Past Surgical History none Active Ordered Medications vanco azactam flagyl micafungin Family History non contributory to current illness Social History + tobacco no ETOH + prescription pain medx abuse - per family wheel chair bound Physical Exam Vital Signs Vital Signs Date Time Temp Pulse Resp B/P (MAP) Pulse Ox O2 Delivery O2 Flow Rate FiO2 06/28/17 12:23 128 71/42 06/28/17 12:00 104.2 129 24 85/50 (62) 91 52/47 (49) 06/28/17 12:00 100 06/28/17 10:25 96 100 06/28/17 08:00 94 100 06/28/17 08:00 103.4 133 22 88/52 (64) 95 88/43 (58) 06/28/17 08:00 65 06/28/17 06:30 94 65 06/28/17 06:29 133 82/50 06/28/17 04:32 120 50/35 06/28/17 04:16 94 65 9/17/17 04:00 99.9 06/28/17 04:00 65 06/28/17 04:00 134 06/28/17 02:16 96 65 06/28/17 02:00 118 06/28/17 00:08 94 65 06/28/17 00:00 99.9 115 24 89/50 (63) 95 104/52 (69) 06/28/17 00:00 65 06/28/17 00:00 115 06/27/17 22:00 91 06/27/17 20:00 97.4 117 23 107/56 (73) 97 135/70 (91) 06/27/17 20:00 117 06/27/17 20:00 65 06/27/17 19:51 94 65 06/27/17 18:00 117 06/27/17 17:15 92 65 06/27/17 16:00 104 06/27/17 16:00 102.9 106 22 88/52 (64) 94 94/74 (81) 06/27/17 16:00 65 Physical Exam CONSTITUTIONAL/GENERAL: This is a morbidly obese patient, sedated intubated on [facility] vent TUBES/LINES/DRAINS: SKIN: No jaundice, rashes, or lesions. Skin temperature appropriate. Not diaphoretic. HEAD: Atraumatic. Normocephalic. EYES: Pupils equal and round and reactive. No scleral icterus. No injection or drainage. Fundi not examined. ENT: Hearing grossly normal. Nose without bleeding or purulent drainage. Throat without visible erythema, exudates, masses, or lesions. NG in place with dark blood output NECK: Trachea midline. Supple, nontender. No palpable thyroid enlargement or nodularity. CARDIOVASCULAR: Regular rate and rhythm without murmurs, gallops, or rubs. No JVD. Peripheral pulses diminiashed Poor refill of digits RESPIRATORY/CHEST: Symmetric, unlabored respirations. Clear to auscultation. Breath sounds equal bilaterally. No wheezes, rales, or rhonchi. GASTROINTESTINAL: Abdomen soft, no reaction to palpation, nondistended. No hepato-splenomegaly, or palpable masses. No guarding. Bowel sounds present. GENITOURINARY: Without palpable bladder distension. Caban catheter in place with mnimal urine MUSCULOSKELETAL: Extremities without clubbing, cyanosis, +edema. No joint tenderness or effusion noted. + mottling o LYMPHATICS: No palpable cervical or supraclavicular adenopathy. NEUROLOGICAL: sedated. Unresponsive PSYCHIATRIC: unabble to assess Laboratory Laboratory Tests Test 06/27/17 19:50 06/28/17 04:43 06/28/17 04:50 06/28/17 06:00 Blood Urea Nitrogen 59 67 Creatinine 2.49 3.41 Random Glucose 458 326 Total Protein 6.9 5.5 Albumin 3.4 2.5 Calcium Level 7.4 5.8 Alkaline Phosphatase 92 76 Aspartate Amino Transf (AST/SGOT) 45 58 Alanine Aminotransferase (ALT/SGPT) 40 37 Total Bilirubin 0.3 0.3 Sodium Level 147 153 Potassium Level 3.6 2.9 Chloride Level 115 124 Carbon Dioxide Level 21.3 15.8 Anion Gap 11 13 Estimat Glomerular Filtration Rate 20 14 Protein Corrected Calcium 7.5 6.5 Total Creatine Kinase 565 Creatine Kinase MB 1.5 Creatine Kinase MB % 0.3 Blood Gas Puncture Site ART LINE Blood Gas Patient Temperature 98.6 Blood Gas HCO3 17 Blood Gas Base Excess -9.0 Blood Gas Oxygen Saturation 90 Arterial Blood pH 7.22 Arterial Blood Partial Pressure CO2 44 Arterial Blood Partial Pressure O2 70 Arterial Blood Oxygen Content 20.5 Arterial Blood Carboxyhemoglobin 0.9 Arterial Blood Methemoglobin 1.5 Blood Gas Hemoglobin 16.2 Oxygen Delivery Device VENT Blood Gas Ventilator Setting SEE COMMENTS Blood Gas Inspired Oxygen 65 White Blood Count 23.7 Red Blood Count 4.92 Hemoglobin 14.9 Hematocrit 48.1 Mean Corpuscular Volume 97.8 Mean Corpuscular Hemoglobin 30.2 Mean Corpuscular Hemoglobin Concent 30.9 Red Cell Distribution Width 14.6 Platelet Count 216 Mean Platelet Volume 9.7 Neutrophils (%) (Auto) 79.3 Lymphocytes (%) (Auto) 12.4 Monocytes (%) (Auto) 7.9 Eosinophils (%) (Auto) 0.0 Basophils (%) (Auto) 0.4 Neutrophils # (Auto) 19.7 Lymphocytes # (Auto) 3.1 Monocytes # (Auto) 2.0 Eosinophils # (Auto) 0.0 Basophils # (Auto) 0.1 Differential Total Cells Counted 100 Neutrophils % (Manual) 75 Band Neutrophils % 6 Lymphocytes % 11 Monocytes % 7 Neutrophils # (Manual) 19.4 Myelocytes 1 Differential Comment FINAL DIFF MANUAL Platelet Estimate NORMAL Platelet Morphology Comment NORMAL B-Hydroxybutyrate 0.18 Lactic Acid Level 2.4 Troponin I 4.75 Test 06/28/17 07:15 06/28/17 11:00 06/28/17 12:00 Blood Gas Puncture Site RT RADIAL ART LINE Blood Gas Patient Temperature 98.6 98.6 Blood Gas HCO3 18 21 Blood Gas Base Excess -8.0 -6.5 Blood Gas Oxygen Saturation 87 91 Arterial Blood pH 7.22 7.17 Arterial Blood Partial Pressure CO2 46 58 Arterial Blood Partial Pressure O2 61 76 Arterial Blood Oxygen Content 18.7 18.1 Arterial Blood Carboxyhemoglobin 0.9 0.7 Arterial Blood Methemoglobin 1.6 1.6 Blood Gas Hemoglobin 15.3 14.1 Oxygen Delivery Device VENTILATOR VENTILATOR Blood Gas Ventilator Setting A/C 550/18/8PEEP A/C550/20/8PEEP Blood Gas Inspired Oxygen 65 100 Hemoglobin 14.0 Hematocrit 45.7 Prothrombin Time 16.7 Prothromb Time International Ratio 1.5 Lactic Acid Level 3.2 Amylase Level 120 Lipase 97 25-Hydroxy Vitamin D Total 6.3 Parathyroid Hormone (Intact) 1619.5 Date/Time Source Procedure Growth Status 06/27/17 12:45 Blood Peripheral Aerobic Blood Culture - Preliminary Staphylococcus Epidermidis Resulted 06/27/17 12:45 Blood Peripheral Anaerobic Blood Culture - Preliminary NO GROWTH IN 1 DAY Resulted 06/27/17 05:55 Sputum Endotracheal Gram Stain - Final Resulted 06/27/17 05:55 Sputum Endotracheal Sputum Culture Pending Resulted 06/27/17 05:55 Urine Random Urine Urine Culture - Preliminary NO GROWTH IN 24 HOURS. Resulted Result Diagram: 06/28/17 1100 06/28/17 0450 Imaging Last Impressions Abdomen X-Ray 06/28/17 0600 Signed Impressions: Service Date/Time: Wednesday, June 28, 2017 05:37 - CONCLUSION: Extremely limited exam due to patient's body habitus. Anatomic detail is very difficult to delineate. Dami Cm MD Chest X-Ray 06/28/17 0000 Signed Impressions: Service Date/Time: Wednesday, June 28, 2017 05:48 - CONCLUSION: 1. Interval placement of a left IJ central venous catheter with the tip projecting over the central venous system. No pneumothorax 2. Endotracheal tube has been significantly pulled back with the tip now in the cervical esophagus. This should probably be advanced 5-8 cm. 3. Improving aeration in the left base. Minimal atelectatic changes in the right base. Dami Cm MD Abdomen/Pelvis CT 06/28/17 0000 Signed Impressions: Service Date/Time: Wednesday, June 28, 2017 08:09 - CONCLUSION: 1. Significant bowel dilatation is not seen. Oral and intravenous contrast was not given for this exam. 2. Hepatic steatosis. 3. Multiple renal masses likely related to cysts including an 18 cm mass at the inferior left kidney. Ideally, these will be further evaluated with a contrast-enhanced CT or MRI examination. This could be performed as an outpatient on a nonemergent basis. 4. Right lower lobe consolidation. 5. Small 3 mm nonobstructing left renal stone. Isauro Streeter MD CT Angiography 06/23/17 0000 Signed Impressions: Service Date/Time: Friday, June 23, 2017 15:11 - CONCLUSION: 1. Endotracheal tube has its tip in the right mainstem bronchus. This should be pulled back at least 3 cm from more optimal positioning. 2. No large pulmonary emboli identified on the suboptimal CT pulmonary angiogram due to poor cardiac output. 3. Posterior bibasilar atelectasis and/or infiltrates. 4. Enlarged fatty liver. 5. Mild splenomegaly. 6. Cardiomegaly. Preston Montoya MD Head CT 06/21/172121 Signed Impressions: Service Date/Time: Wednesday, June 21, 2017 21:43 - CONCLUSION: No acute disease. Kang Coronado MD Assessment and Plan Assessment and Plan Multiorgan tino;lure COPD exxacerbation Acute VDRF Probable PNA, sputum with nl resp alesha MIcrococcus bacteremia ? significance New GPC bactermeia - furthe rID to follow Acute AR Acute upper GI bleed ARF, oliguric Pt is critically ill unstabale with multiorgan failure cont broad spectrum abx poor prognosis 2/2 progressive multi organ failreu was d/w family palliative care was consulted Discussed Condition With Dr Carlos ANDERSON family @ b/s Hattie Ngo MD Jun 28, 2017 14:15
[2017-06-28 14:42] LABS: AUTOMATED NEUTROPHIL # 21.9 TH/MM3 (1.8-7.7); BASOPHIL # 0.2 TH/MM3 (0-0.2); BASOPHIL % 0.5 % (0.0-2.0); EOSINOPHIL % 0.1 % (0.0-4.0); HEMATOCRIT 45.7 % (35.0-46.0); LYMPH % 15.9 % (9.0-44.0); LYMPHOCYTE # 5.2 TH/MM3 (1.0-4.8); MEAN CELL VOLUME 99.1 FL (80.0-100.0); MEAN CORPUSCULAR HEMOGLOBIN 30.5 PG (27.0-34.0); MEAN CORPUSCULAR HGB CONC 30.7 % (32.0-36.0); MONO % 16.2 % (0.0-8.0); NEUT % 67.3 % (16.0-70.0); PLATELET COUNT 110 TH/MM3 (150-450); RED BLOOD COUNT 4.61 MIL/MM3 (4.00-5.30); RED CELL DISTRIBUTION WIDTH 15.8 % (11.6-17.2); WHITE BLOOD COUNT 32.5 TH/MM3 (4.0-11.0)
[2017-06-28 14:43] LABS: HEMO FLAGS AUTO DIFF
[2017-06-28] MEDS ORDERED: ACETAMINOPHEN 1000 MG/100 ML VIAL IV ONE (14:45)
[2017-06-28] MEDS ORDERED: CALCIUM CHLORIDE 10% SOLN 1 GRAM/10 ML SYR IV ONE (14:50)
[2017-06-28] MEDS ORDERED: EPINEPHrine HCL (1:1000) 30 MG/30 ML VIAL IV ONE (14:50)
[2017-06-28] MEDS ORDERED: SODIUM BICARBONATE 8.4% INJ 50 MEQ/50 ML SYR IV ONE ×2 (14:50)
[2017-06-28] MEDS ORDERED: EPINEPHrine HCL (1:10,000) 1 MG/10 ML SYRINGE IV ONE ×2 (14:50)
[2017-06-28 14:51] LABS: POTASSIUM 7.5 MEQ/L (3.5-5.1)
[2017-06-28 15:05] LABS: CALCIUM-PROTEIN CORRECTED 8.4 MG/DL (8.5-10.1)
[2017-06-28 15:14] LABS: BANDS 10 % (0-6); CORRECTED NUCLEATED RBC 3 /100 WBC (0-0); NEUTROPHIL # MANUAL DIFF 23.7 TH/MM3 (1.8-7.7); PLATELET ESTIMATE SMEAR LOW (NORMAL); PLATELET MORPHOLOGY NORMAL (NORMAL); POLYS (SEG NEUTROPHILS) 63 % (16-70); SCAN/DIFF FINAL DIFF MANUAL; WBC DIFF SAMPLE 100
[2017-06-28 15:17] LABS: TOXIC VACUOLATION PRESENT (NONE SEEN)
--- NOTE | 2017-06-28 20:07 | PD.PROCEDR ---
Procedure Note Procedure Date: 06/28/2017 Procedure: Cardiopulmonary resuscitation Indication: Cardiac arrest Details of procedure: Patient developed PEA -->asystole cardiac arrest at 1410. I arrived at 1414, CPR in progress. Per ACLS protocol, patient received CPR, manual bag valve ventilation via pre-existing in situ ETT, epinephrine and calcium chloride, sodium bicarbonate, normal saline 1 L IV, and other interventions the ACLS record. After 40 minutes resuscitation we were able/unable to restore spontaneous circulation. Patient was pronounced [id number] hours. The family was notified by Dr. Gonzalez, Family present, patient's sister and mother. I spoke on the telephone on several occasions to patient's children, Saúl and Joselyn. All questions answered. Katie Gonzalez MD Jun 28, 2017 20:07
--- NOTE | 2017-06-28 20:07 | HHI.DS ---
Summary Note Date of : Jun 28, 2017 Time Of : 1451 Admission Date Jun 21, 2017 at 23:20 Admitting Diagnosis resp acidosis/CO2 narcosis; polypharmacy; DM/hyperglycemia Diagnosis at Time of : Procedures 06/22 intubation 06/28 ACLS x 5 mins- Code Blue Brief History This is a 56-year-old female that presented to the ED by EMS transport from a local [facility] with complaint of vomiting 3 days generalized weakness and mild confusion. Patient was identified by EMS to have an Accu-Chek of 350. Patient has history of diabetes, hypertension, asthma/COPD , dyslipidemia, RBBB, morbid obesity, and anxiety depression and bipolar disorder. Patient here denies headache chest pain or abdominal pain. Patient denies diarrhea. Patient denies any injury or fall. Patient rates pain 0/10 in intensity. In route to the hospital patient had EKG which showed right bundle branch block pattern which patient has by history, was administered Zofran 4 mg IV for complaint of nausea and vomiting (no witnessed vomiting) , and given a 500 cc bolus of normal saline, the patient then received metoclopramide. Patient does not report any bilious emesis hematemesis coffee- ground emesis melena or hematochezia. The patient was placed on by BIPAP, with slight improvement of ABG. Upon evaluation to the ED, the patient was noted to be having dystonia movement, confusion with bouts of somnolence, possibly due to noted hyponatremia, or and/or metoclopramide, the patient's O2 saturation was noted to be 96% on 12/8 FIO2.40% BiPAP. The patient was given IV Benadryl. Critical care medicine is consulted for management. [facility] Past Medical History Narrative Medical Asthma/status CT dyslipidemia diabetes hypertension hypothyroidism clinical obesity chronic pain syndrome no tobacco use occasional alcohol use; appendectomy cholecystectomy hysterectomy tonsillectomy; no tobacco use; nursing notes reviewed Asthma: Yes Anxiety: Yes Depression: Yes High Cholesterol: Yes COPD: Yes Diabetes: Yes Patient Takes Glucophage: No GERD: Yes Hypertension: Yes Respiratory: Yes Thyroid Disease: Yes Tetanus Vaccination: Unknown Influenza Vaccination: No ?: Unknown Past Surgical History Appendectomy: Yes Cholecystectomy: Yes Hysterectomy: Yes Tonsillectomy: Yes Social History Alcohol Use: Yes (Occasionally) Tobacco Use: No Substance Use: No Allergies-Medications (Allergen,Severity, Reaction): Coded Allergies: Penicillins (Verified Allergy, Unknown, Unknown , 06/21/17) Reported Meds & Prescriptions Reported Meds & Active Scripts Active Reported Alprazolam 1 Mg Tab 1 Mg PO Q8H PRN Omeprazole 20 Mg Tab 20 Mg PO DAILY Hydroxyzine Pamoate 25 Mg Cap 25 Mg PO BID Glimepiride 4 Mg Tab 4 Mg PO BIDAC [place] Carbonate ER ([place] Carbonate) 450 Mg Tab 450 Mg PO BID Benztropine (Benztropine Mesylate) 0.5 Mg Tab 1 Mg PO HS Klor-Con 10 (Potassium Chloride) 10 Meq Tab 10 Meq PO DAILY Levothyroxine (Levothyroxine Sodium) 100 Mcg Tab 100 Mcg PO DAILY Ropinirole 4 Mg Tab 4 Mg PO HS Quetiapine (Quetiapine Fumarate) 400 Mg Tab 800 Mg PO HS Trazodone (Trazodone HCl) 150 Mg Tablet 150 Mg PO HS Doxepin (Doxepin HCl) 100 Mg Cap 100 Mg PO HS Lisinopril 5 Mg Tab 5 Mg PO DAILY Simvastatin 20 Mg Tab 20 Mg PO DAILY Citalopram (Citalopram Hydrobromide) 20 Mg Tab 20 Mg PO DAILY Review of Systems Except as stated in HPI: all other systems reviewed are Neg General / Constitutional: No: Fever, Chills HENT: No: Headaches, Congestion Cardiovascular: No: Chest Pain or Discomfort Respiratory: No: Shortness of Breath Gastrointestinal: Positive: Nausea, Vomiting, No: Diarrhea, Abdominal Pain Genitourinary: No: Dysuria, Decreased Urinary Output Musculoskeletal: No: Myalgias, Arthralgias Skin: No Rash Neurologic: Positive: Weakness, Change in Mentation, No: Dizziness, Syncope, Headache Psychiatric: No: Anxiety Hematologic/Lymphatic: No: Easy Bruising CBC/BMP: 06/28/17 1422 06/28/17 1422 Significant Findings Laboratory Tests Test 06/26/17 05:30 06/27/17 03:50 06/27/17 10:45 06/27/17 13:20 Blood Urea Nitrogen 34 MG/DL (7-18) 45 MG/DL (7-18) Creatinine 1.49 MG/DL (0.50-1.00) 1.87 MG/DL (0.50-1.00) Random Glucose 359 MG/DL (74-106) 487 MG/DL (74-106) Chloride Level 110 MEQ/L (98-107) 110 MEQ/L (98-107) Estimat Glomerular Filtration Rate 36 ML/MIN (>89) 28 ML/MIN (>89) Hemoglobin 15.7 GM/DL (11.6-15.3) Hematocrit 48.6 % (35.0-46.0) Calcium Level 8.2 MG/DL (8.5-10.1) Blood Gas Base Excess -3.1 mmol/L (-2-2) Blood Gas Oxygen Saturation 88 % (90-100) Arterial Blood pH 7.34 (7.380-7.420) Arterial Blood Oxygen Content 20.6 Vol % (12.0-20.0) Blood Gas Hemoglobin 16.7 G/DL (12.0-16.0) Albumin 3.3 GM/DL (3.4-5.0) Lipase 53 U/L (73-393) Procalcitonin 1.02 ng/mL (0.00-0.50) Test 06/27/17 19:50 06/28/17 04:43 06/28/17 04:50 06/28/17 06:00 Blood Urea Nitrogen 59 MG/DL (7-18) 67 MG/DL (7-18) Creatinine 2.49 MG/DL (0.50-1.00) 3.41 MG/DL (0.50-1.00) Random Glucose 458 MG/DL (74-106) 326 MG/DL (74-106) Calcium Level 7.4 MG/DL (8.5-10.1) 5.8 MG/DL (8.5-10.1) Aspartate Amino Transf (AST/SGOT) 45 U/L (15-37) 58 U/L (15-37) Sodium Level 147 MEQ/L (136-145) 153 MEQ/L (136-145) Chloride Level 115 MEQ/L (98-107) 124 MEQ/L (98-107) Estimat Glomerular Filtration Rate 20 ML/MIN (>89) 14 ML/MIN (>89) Protein Corrected Calcium 7.5 MG/DL (8.5-10.1) 6.5 MG/DL (8.5-10.1) Total Creatine Kinase 565 U/L (26-192) Blood Gas HCO3 17 mmol/L (22-26) Blood Gas Base Excess -9.0 mmol/L (-2-2) Arterial Blood pH 7.22 (7.380-7.420) Arterial Blood Partial Pressure CO2 44 mmHg (38-42) Arterial Blood Oxygen Content 20.5 Vol % (12.0-20.0) Blood Gas Hemoglobin 16.2 G/DL (12.0-16.0) White Blood Count 23.7 TH/MM3 (4.0-11.0) Hematocrit 48.1 % (35.0-46.0) Mean Corpuscular Hemoglobin Concent 30.9 % (32.0-36.0) Neutrophils (%) (Auto) 79.3 % (16.0-70.0) Neutrophils # (Auto) 19.7 TH/MM3 (1.8-7.7) Monocytes # (Auto) 2.0 TH/MM3 (0-0.9) Neutrophils % (Manual) 75 % (16-70) Neutrophils # (Manual) 19.4 TH/MM3 (1.8-7.7) Myelocytes 1 % (0-0) Total Protein 5.5 GM/DL (6.4-8.2) Albumin 2.5 GM/DL (3.4-5.0) Potassium Level 2.9 MEQ/L (3.5-5.1) Carbon Dioxide Level 15.8 MEQ/L (21.0-32.0) Lactic Acid Level 2.4 mmol/L (0.4-2.0) Troponin I 4.75 NG/ML (0.02-0.05) Test 06/28/17 07:15 06/28/17 11:00 06/28/17 12:00 06/28/17 14:22 Blood Gas HCO3 18 mmol/L (22-26) 21 mmol/L (22-26) Blood Gas Base Excess -8.0 mmol/L (-2-2) -6.5 mmol/L (-2-2) Blood Gas Oxygen Saturation 87 % (90-100) Arterial Blood pH 7.22 (7.380-7.420) 7.17 (7.380-7.420) Arterial Blood Partial Pressure CO2 46 mmHg (38-42) 58 mmHg (38-42) Prothrombin Time 16.7 SEC (9.8-11.6) Lactic Acid Level 3.2 mmol/L (0.4-2.0) Amylase Level 120 U/L (25-115) 25-Hydroxy Vitamin D Total 6.3 ng/ML (30-100) Parathyroid Hormone (Intact) 1619.5 PG/ML (12.4-76.8) White Blood Count 32.5 TH/MM3 (4.0-11.0) Mean Corpuscular Hemoglobin Concent 30.7 % (32.0-36.0) Platelet Count 110 TH/MM3 (150-450) Monocytes (%) (Auto) 16.2 % (0.0-8.0) Neutrophils # (Auto) 21.9 TH/MM3 (1.8-7.7) Lymphocytes # (Auto) 5.2 TH/MM3 (1.0-4.8) Monocytes # (Auto) 5.2 TH/MM3 (0-0.9) Band Neutrophils % 10 % (0-6) Monocytes % 9 % (0-8) Neutrophils # (Manual) 23.7 TH/MM3 (1.8-7.7) Nucleated Red Blood Cells 3 /100 WBC (0-0) Toxic Vacuolation PRESENT (NONE SEEN) Platelet Estimate LOW (NORMAL) Blood Urea Nitrogen 77 MG/DL (7-18) Creatinine 5.44 MG/DL (0.50-1.00) Random Glucose 391 MG/DL (74-106) Total Protein 5.1 GM/DL (6.4-8.2) Calcium Level 7.3 MG/DL (8.5-10.1) Sodium Level 146 MEQ/L (136-145) Potassium Level 7.5 MEQ/L (3.5-5.1) Chloride Level 111 MEQ/L (98-107) Estimat Glomerular Filtration Rate 8 ML/MIN (>89) Protein Corrected Calcium 8.4 MG/DL (8.5-10.1) Imaging Last Impressions Abdomen X-Ray 06/28/17 0600 Signed Impressions: Service Date/Time: Wednesday, June 28, 2017 05:37 - CONCLUSION: Extremely limited exam due to patient's body habitus. Anatomic detail is very difficult to delineate. Dami mC MD Chest X-Ray 06/28/17 0000 Signed Impressions: Service Date/Time: Wednesday, June 28, 2017 05:48 - CONCLUSION: 1. Interval placement of a left IJ central venous catheter with the tip projecting over the central venous system. No pneumothorax 2. Endotracheal tube has been significantly pulled back with the tip now in the cervical esophagus. This should probably be advanced 5-8 cm. 3. Improving aeration in the left base. Minimal atelectatic changes in the right base. Dami Cm MD CT Angiography 06/23/17 0000 Signed Impressions: Service Date/Time: Friday, June 23, 2017 15:11 - CONCLUSION: 1. Endotracheal tube has its tip in the right mainstem bronchus. This should be pulled back at least 3 cm from more optimal positioning. 2. No large pulmonary emboli identified on the suboptimal CT pulmonary angiogram due to poor cardiac output. 3. Posterior bibasilar atelectasis and/or infiltrates. 4. Enlarged fatty liver. 5. Mild splenomegaly. 6. Cardiomegaly. Preston Montoya MD Head CT 06/21/172121 Signed Impressions: Service Date/Time: Wednesday, June 21, 2017 21:43 - CONCLUSION: No acute disease. Kang Coronado MD Last Impressions Chest X-Ray 06/24/17 0600 Signed Impressions: Service Date/Time: Saturday, June 24, 2017 04:38 - CONCLUSION: Endotracheal tube and nasogastric tube in good position. Mild basilar opacity similar to June 23. Franck Desai MD CT Angiography 06/23/17 0000 Signed Impressions: Service Date/Time: Friday, June 23, 2017 15:11 - CONCLUSION: 1. Endotracheal tube has its tip in the right mainstem bronchus. This should be pulled back at least 3 cm from more optimal positioning. 2. No large pulmonary emboli identified on the suboptimal CT pulmonary angiogram due to poor cardiac output. 3. Posterior bibasilar atelectasis and/or infiltrates. 4. Enlarged fatty liver. 5. Mild splenomegaly. 6. Cardiomegaly. Preston Montoya MD Head CT 06/21/172121 Signed Impressions: Service Date/Time: Wednesday, June 21, 2017 21:43 - CONCLUSION: No acute disease. Kang Coronado MD Hospital Course 06/22: At approximately 0100am, the patient became confused, combative, more agitated. Urine drug screen revealed positive for cannabinoids. The patient received Benadryl 25 mg IV and 1 mg of Ativan in divided doses over 2 hours, with resolution. At 0600 a.m., the patient again became agitated's decreasing mentation and confusion ,ABG was drawn showing decreasing oxygen saturation/ PAO2 levels. The patient was emergently intubated 1 attempt uneventfully. 06/23: Afebrile. Yesterday the patient was noted to be in pulmonary edema, given Lasix 40 mg IV last am, diuresed approximately 4 L prior to transfer to [facility]. The patient was transferred from [facility] last evening . No acute events overnight .The patient remains intubated, and sedated, when sedation minimized the patient's agitated not following commands. Echo performed revealed right ventricle slight decrease in function with RV mildly dilated, last night. Plan for CT pulmonary angiogram, will f/u results. FiO2 has been weaned down to 50%. ABG pending. 06/24: wbc downtrending. CT pulmonary angiogram overnight negative for PE. agitation is a problem, on precedex, propofol, fentanyl. family not at bedside when I came to evaluate patient. will attempt to contact them. 06/25: delayed note entry. seen and evaluated at ~0700am. agitation persistently a problem. weaning sedation as tolerated. end organs improving. 06/26: agitation persists. new fever today, though without leukocytosis. cervantes cultured. 06/27: glycemic control much worse today. fevers persist, however wbc only slightly increased to 10 from 9 yesterday. cultures NGTD. agitation somewhat improved. 06/28: At approximately 4 AM, the patient was noted to have a precipitous decrease in blood pressure, all sedatives discontinued Precedex and fentanyl. The patient was bolused with 2 L of crystalloid , Labs were obtained, patient was noted to be acidotic sodium bicarbonate infusion initiated. Lactate level was noted to be 4.75. Concurrently the patient was noted to have increased NG output coffee-ground emesis approximately 300 cc by 6 AM. Stat KUB was obtained unfortunately unable to delineate any anatomical structures due to body habitus. ID was consulted. Stat CT also was ordered, upon presenting for CT and scanner the patient became severely hypotensive while on phenylephrine infusion and became asystolic. CPR was initiated with ROSC at 5 minutes, epinephrine infusion added .Noted reddish-brown fulminant oral secretions. CT scan abdomen pelvis pending. 06/28: The patient went into PEA arrest at 1410. I arrived at 1414, CPR already initiated, and progress. Family notified via telephone and initiation of CPR, 30 minutes post and at the time of . Mother and sister present in hospital , extensive discussion regarding patient's medical status and precipitous decline with noted elevated troponins, and abnormal EKG early this a.m.. Probable acute PR most likely diagnosis. Time of 1451. Katie Gonzalez MD Jun 28, 2017 20:06
== END 2017-06-28 14:51 | disposition expired | DRG 870 ==
LOC: PHED 20:55 → PHEDA 23:20 → PHEDH 06-22 03:31 → HIME 06-22 18:34
PROVIDERS: ADMIT Anesthesiology; ATTEND Anesthesiology
PROC: 5A1955Z Respiratory Ventilation, Greater than 96 Consecutive Hours (ICD-10-PCS; principal; 2017-06-22)
PROC: 03HY32Z Insertion of Monitoring Device into Upper Artery, Percutaneous Approach (ICD-10-PCS; 2017-06-22)
PROC: 02HV33Z Insertion of Infusion Device into Superior Vena Cava, Percutaneous Approach (ICD-10-PCS; 2017-06-28)
PROC: B544ZZA Ultrasonography of Left Jugular Veins, Guidance (ICD-10-PCS; 2017-06-28)
PROC: 5A12012 Performance of Cardiac Output, Single, Manual (ICD-10-PCS; 2017-06-28)
DX: A41.9 Sepsis, unspecified organism (principal); R65.21 Severe sepsis with septic shock; G92 Toxic encephalopathy; J18.9 Pneumonia, unspecified organism; J44.0 Chronic obstructive pulmonary disease with (acute) lower respiratory infection; J96.01 Acute respiratory failure with hypoxia; J96.02 Acute respiratory failure with hypercapnia; J44.1 Chronic obstructive pulmonary disease with (acute) exacerbation; N17.9 Acute kidney failure, unspecified; N18.3 Chronic kidney disease, stage 3 (moderate); K92.2 Gastrointestinal hemorrhage, unspecified; E87.0 Hyperosmolality and hypernatremia; E87.2 Acidosis; E87.1 Hypo-osmolality and hyponatremia; E66.2 Morbid (severe) obesity with alveolar hypoventilation; Z68.43 Body mass index [BMI] 50.0-59.9, adult; I45.2 Bifascicular block; F31.9 Bipolar disorder, unspecified; E11.22 Type 2 diabetes mellitus with diabetic chronic kidney disease; E11.65 Type 2 diabetes mellitus with hyperglycemia; G25.81 Restless legs syndrome; F41.9 Anxiety disorder, unspecified; G24.9 Dystonia, unspecified; L08.9 Local infection of the skin and subcutaneous tissue, unspecified; I12.9 Hypertensive chronic kidney disease with stage 1 through stage 4 chronic kidney disease, or unspecified chronic kidney disease; E03.9 Hypothyroidism, unspecified; G89.4 Chronic pain syndrome; I45.10 Unspecified right bundle-branch block; K21.9 Gastro-esophageal reflux disease without esophagitis; I46.9 Cardiac arrest, cause unspecified; E83.51 Hypocalcemia; E87.6 Hypokalemia; N28.1 Cyst of kidney, acquired; M17.0 Bilateral primary osteoarthritis of knee; Z79.84 Long term (current) use of oral hypoglycemic drugs; Z88.0 Allergy status to penicillin; Z99.3 Dependence on wheelchair
CPT/HCPCS: 31500; 36600; 70450; 71010; 71275; 74000; 74176; 76937; 80048; 80053; 80061; 80076; 80178; 80202; 80307; 81001; 82010; 82140; 82150; 82306; 82330; 82550; 82552; 82652; 82805; 82948; 83036; 83605; 83690; 83735; 83880; 83935; 83970; 84100; 84145; 84155; 84295; 84300; 84436; 84443; 84484; 85007; 85014; 85018; 85025; 85027; 85379; 85610; 85730; 86403; 87040; 87070; 87077; 87086; 87205; 87641; 92950; 93005; 93306; 94002; 94003; 94640; 94664; 96374; 96375; C9113; G0481; J0171; J0330; J0610; J1200; J1644; J1815; J1817; J1940; J1956; J2060; J2248; J2370; J2405; J2765; J2920; J2930; J3010; J3370; J3480; J7030; J7040; J7050; J7060; J7120; P9045; Q9967